=== PATIENT | male | born 1940 | race Caucasian/White ===

== ENCOUNTER 2021-06-23 09:38 | Emergency (ER) | payer MEDICARE, SELFPAY ==
[2021-06-23 09:46] VITALS: BP 215/85; PULSE 99; RESP 18; TEMP 36.1; O2SAT 96; BMI 25.8
--- NOTE | 2021-06-23 10:00 | ECG_ITS ---
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 Measurements Intervals [place] Rate: 95 P: 67 NE: 195 QRS: 65 QRSD: 118 T: 67 QT: 343 QTc: 433 Interpretive Statements SINUS RHYTHM INCOMPLETE RIGHT BUNDLE BRANCH BLOCK [90+ ms QRS DURATION, TERMINAL R IN V1/V2, 40+ ms S IN I/aVL/V4/V5/V6] ST DEVIATION AND MODERATE T-WAVE ABNORMALITY, CONSIDER ANTERIOR ISCHEMIA [-0.1+ mV T-WAVE IN V3/V4] Compared to ECG 07/05/2017 16:20:59 Incomplete right bundle-branch block now present T-wave abnormality now present Possible ischemia now present Right bundle-branch block no longer present Electronically Signed On 06-24-2021 16:13:51 MARKETING OPERATIONS SPECIALIST by Kary Gurrola M.D. [id number]
--- NOTE | 2021-06-23 10:00 | XR_ITS ---
WS: [id number] Exam: XR chest 1V portable [id number] Date/Time of Exam: 06/23/2021 10:27 AM Reason For Exam: dyspnea/cough Comparison 07/06/2017. Mild groundglass infiltrates seen in the mid right lung. Left lung is clear. Heart size is normal. No pleural effusions or pneumothorax. The mediastinum is not widened. Regional bony elements are intact . XR/XR chest 1V portable [id number] IMPRESSION: 1. Mild groundglass infiltrate in the mid right lung. This is suspicious for de veloping pneumonia.
[2021-06-23 10:01] VITALS: BP 107/78; PULSE 88; PULSE 92; RESP 24; O2SAT 92
--- NOTE | 2021-06-23 10:21 | W.ED.GENADLT ---
HPI - General Adult General: Chief complaint: General Medical Stated complaint: HTN: MEDS NOT HELPING Time Seen by Provider: 06/23/21 09:53 History of Present Illness: HPI narrative: 80-year-old male presents emergency room with elevated blood pressure. Reports elevated blood pressure over the last 4 days he is on carvedilol clonidine amlodipine and valsartan he did take his blood pressure medicines this morning initial arrival his blood pressure 215/85 he denies any difficulty speech swallowing gait or vision. He denies any chest pain or shortness of breath denies running out of changing any of his medications recently. Onset (ago): day(s) (4) Relieving factors: none Exacerbating factors: none Associated symptoms: Deny chest pain, confusion, cough, diaphoresis, decreased appetite, dyspnea, fevers/chills, headache(s), malaise, nausea, rash, palpitations, seizures, short of breath, syncope, vomiting or weakness Treatments prior to arrival: none Review of Systems Const: Denies: malaise or diaphoresis ENMT: Denies: throat pain, ear or mastoid pain, nasal discharge or nasal congestion Card: Denies: chest pain, palpitations or syncope Resp: Denies: dyspnea GI: Denies: nausea or vomiting : Denies: flank pain, dysuria, urinary frequency or urinary urgency Skin/Breast: Denies: rash Neuro: Denies: headache(s) or confusion Physical Exam Const: COMMON NORMALS: no acute distress GENERAL APPEARANCE: cooperative and comfortable ORIENTATION/CONSCIOUSNESS: Yes awake, Yes oriented to person, Yes oriented to place and Yes oriented to time HENMT: COMMON NORMALS: normocephalic, atraumatic and hearing grossly normal bilaterally HEAD & SCALP: normocephalic and atraumatic Neck/C-Spine: COMMON NORMALS: no JVD Resp: COMMON NORMALS: normal respiratory effort, No retractions, No use of accessory muscles and clear to auscultation bilaterally AUSCULTATION: clear to auscultation bilaterally Cardio: COMMON NORMALS: no JVD, regular rate, regular rhythm and No murmurs present (Cardio) RATE: regular rate RHYTHM: regular rhythm GI: COMMON NORMALS: Soft to palpation and No hepatosplenomegaly present AUSCULTATION: Yes normoactive bowel sounds PALPATION: Yes Soft to palpation, No Tenderness to palpation present (GI), No Guarding due to palpation present (GI) and Yes No hepatosplenomegaly present Extremity: COMMON NORMALS: normal to inspection, capillary refill normal, no clubbing, cyanosis or edema, no calf tenderness and no pedal edema Neuro: COMMON NORMALS: CN's II-XII intact bilaterally, moves all extremities, no focal motor deficits and no sensory deficits noted SENSORIUM/ORIENTATION: Yes oriented to person, Yes oriented to place and Yes oriented to time Skin: COMMON NORMALS: no rashes or lesions noted GENERAL SKIN EXAM: no rashes or lesions noted Course Vital Signs: Vital signs: Vital Signs Temperature 97 F L 06/23/21 09:46 Pulse Rate 92 06/23/21 10:01 Respiratory Rate 24 H 06/23/21 10:01 Blood Pressure 107/78 06/23/21 10:01 Pulse Oximetry 92 06/23/21 10:01 MDM - General Adult MDM Narrative: Medical decision making narrative: Blood pressure improved increase carvedilol to 25 mg p.o. twice daily follow-up with primary care doc within the next 2 days. Lab Data: Labs: Lab Results 06/23/21 06/23/21 06/23/21 10:35 10:35 10:35 WBC 7.6 10^3/uL 10^3/ uL (4.0-10.0) RBC 5.33 10^6/uL H 10 ^6/uL (4.1-5.3) Hgb 14.8 g/dL g/dL (11.7-16.6) Hct 45.2 % % (42.0-52.0) MCV 84.8 fl fl (80-94) MCH 27.8 pg L pg (28.0-34.0) MCHC 32.7 g/dL g/dL (30.0-36.0) RDW 14.6 % % (12.1-15.1) Plt Count 203 10^3/cmm 10^3 /cmm (130-400) MPV 10.0 fL fL (7.4-10.4) Neut % (Auto) 70.8 % % Lymph % (Auto) 19.4 % % Jewell % (Auto) 6.2 % % Eos % (Auto) 2.6 % % Baso % (Auto) 0.7 % % Neut # (Auto) 5.36 10^3/uL 10^3 /uL (1.8-7.7) Lymph # (Auto) 1.5 10^3/uL 10^3/ uL (0.8-4.8) Jewell # (Auto) 0.5 10^3/uL 10^3/ uL (0.2-0.9) Eos # (Auto) 0.2 10^3/uL 10^3/ uL (0.0-0.8) Baso # (Auto) 0.1 10^3/uL 10^3/ uL (0.0-0.1) Nucleated RBC % (a uto) 0 % % Nucleated RBCs # 0.0 /100WBC /100W BC Sodium 140 mmol/L mmol/L (136-145) Potassium 4.3 mmol/L mmol/L (3.5-5.1) Chloride 103 mmol/L mmol/L (98-107) Carbon Dioxide 22 mmol/L mmol/L (22-29) Anion Gap 19.3 H (5-19) BUN 18 mg/dL mg/dL (8-23) Creatinine 1.1 mg/dL mg/dL (0.7-1.2) GFR Calculation Not Reportable Glucose 126 mg/dL H mg/dL (65-115) Calculated Osmolal ity 293 mOsm/kg mOsm/ kg (285-295) Calcium 10.5 mg/dL mg/dL (8.5-10.5) Total Bilirubin 0.4 mg/dL mg/dL (0.15-1.2) AST 17 U/L U/L (0-40) ALT 14 U/L U/L (0-41) Alkaline Phosphata se 85 IU/L IU/L (40-130) Creatine Kinase 54 U/L U/L (39-308) Total Protein 8.0 g/dL g/dL (6.6-8.7) Albumin 4.6 g/dL g/dL (3.5-5.2) Globulin 3.4 g/dL g/dL (1.3-4.6) Urine Color Straw (Yellow) Urine Appearance Clear (CLEAR) Urine pH 7 (5-7) Ur Specific Gravit y 1.005 (1.005-1.030) Urine Protein Neg (Negative) Urine Glucose (UA) Norm (Normal) Urine Ketones Negative (Negative) Urine Blood Neg (Negative) Urine Nitrate Negative (Negative) Urine Bilirubin Neg (Negative) Urine Urobilinogen Norm mg/dL mg/dL (Negative) Ur Leukocyte Su ase Negative (Negative) Discharge Plan Discharge Patient Disposition: Home Clinical Impression: Hypertension Condition: Stable Prescriptions: Changed carvedilol 25 mg tablet 25 mg PO BID Qty: 0 RF: 0 No Action Vitamin B-12 1,000 mcg Tablet 1,000 mcg PO DAILY RF: 0 Aspir-81 81 mg Tablet,Delayed Release (Dr/Ec) 81 mg PO BEDTIME RF: 0 levothyroxine 75 mcg tablet 75 mcg PO QAM RF: 0 clonidine HCl 0.2 mg tablet 0.2 mg PO QID RF: 0 Tagamet 200 mg Tablet 200 mg PO PRN RF: 0 amlodipine 10 mg tablet 10 mg PO DAILY RF: 0 simvastatin 20 mg tablet 20 mg PO DAILY RF: 0 hydralazine 50 mg tablet 50 mg PO TID RF: 0 valsartan 160 mg tablet 160 mg PO DAILY RF: 0 Vitamin D3 50 mcg (2,000 unit) Capsule 50 mcg PO DAILY RF: 0 Discharge Orders: Discharge ED (Routine); Ordered 06/23/21 Ordered By: Freedom Quinn Referrals: Gustavo Ignacio MD [Primary Care Provider] - Patient Instructions: Opioid Safety Coding Level of Care Code ED Mysql Database Developer for Chg Fwd Exam Comprehensive
[2021-06-23] MEDS: amlodipine 10 mg Tablet PO (10:31)
[2021-06-23] MEDS: labetalol 5 mg/mL SDV 20mL 10 MG IVP (10:31)
[2021-06-23 10:58] LABS: Basophils # 0.1 10^3/uL (0.0-0.1); Basophils % 0.7 %; Eosinophils # 0.2 10^3/uL (0.0-0.8); Eosinophils % 2.6 %; Hematocrit 45.2 % (42.0-52.0); Hemoglobin 14.8 g/dL (11.7-16.6); Lymphocytes # 1.5 10^3/uL (0.8-4.8); Lymphocytes % 19.4 %; Mean Corpuscular HGB Conc 32.7 g/dL (30.0-36.0); Mean Corpuscular Hemoglobin 27.8 pg (28.0-34.0); Mean Corpuscular Volume 84.8 fl (80-94); Monocytes # 0.5 10^3/uL (0.2-0.9); Monocytes % 6.2 %; Neutrophils # 5.36 10^3/uL (1.8-7.7); Neutrophils % 70.8 %; Nucleated Red Blood Cells % 0 %; Platelet Count 203 10^3/cmm (130-400); Red Blood Count 5.33 10^6/uL (4.1-5.3); Red Cell Distribution Width 14.6 % (12.1-15.1); White Blood Count 7.6 10^3/uL (4.0-10.0)
[2021-06-23 11:08] LABS: Add Urine Microscopic? NO; Charge for UA Resulting for Rev
[2021-06-23 11:25] LABS: Alanine Aminotransferase 14 U/L (0-41); Albumin Level 4.6 g/dL (3.5-5.2); Alkaline Phosphatase 85 IU/L (40-130); Anion Gap 19.3 (5-19); Aspartate Amino Transferase 17 U/L (0-40); Blood Urea Nitrogen 18 mg/dL (8-23); Calcium 10.5 mg/dL (8.5-10.5); Carbon Dioxide 22 mmol/L (22-29); Chloride 103 mmol/L (98-107); Creatine Phosphokinase 54 U/L (39-308); Globulin 3.4 g/dL (1.3-4.6); Glucose 126 mg/dL (65-115); Osmolality Calculated 293 mOsm/kg (285-295); Potassium 4.3 mmol/L (3.5-5.1); Sodium 140 mmol/L (136-145); Total Bilirubin 0.4 mg/dL (0.15-1.2)
--- NOTE | 2021-06-23 11:27 | PC.NURSE ---
Per Dr. Quinn this RN will hold pts Enalaprilat 1.25mg IVP.
[2021-06-23 11:30] LABS: Bilirubin Urine Neg (Negative); Blood Urine Neg (Negative); Glucose Urine UA Norm (Normal); Ketones Urine Negative (Negative); Leukocyte Esterase Urine Negative (Negative); Nitrate Urine Negative (Negative); Protein Urine Neg (Negative); Specific Gravity, Urine 1.005 (1.005-1.030); Urine Appearance Clear (CLEAR); Urine Color Straw (Yellow); Urobilinogen Urine Norm (Negative); pH Urine 7 (5-7)
== END 2021-06-23 11:46 | disposition home or self-care (01) ==
PROVIDERS: Emergency Provider Family Medicine; PCP Internal Medicine
DX: I10 Essential (primary) hypertension (principal); Z79.82 Long term (current) use of aspirin
CPT/HCPCS: 71045; 80053; 81003; 82550; 85025; 93005; 96374; 99284; 99291; J3490

== ENCOUNTER 2021-12-27 07:08 | Emergency (ER) | payer MEDICARE, SELFPAY ==
[2021-12-27 07:28] VITALS: BP 111/51; PULSE 75; RESP 14; TEMP 36.7; O2SAT 95; BMI 26.3
--- NOTE | 2021-12-27 07:35 | XR_ITS ---
WS: [id number] Exam: XR knee RT 3V* [id number] Date/Time of Exam: 12/27/2021 7:35 AM Reason For Exam: swelling/pain No acute fracture or dislocation. Moderate joint effusion in the suprapatellar bursa. The joint perlita rtments are relatively well maintained. Chondrocalcinosis. Vascular calcifications in the posterior s oft tissues. XR/XR knee RT 3V* [id number] IMPRESSION: 1. Moderate size joint effusion. No acute fracture. 2. Chondrocalcinosis. Vascular calcifications.
--- NOTE | 2021-12-27 07:36 | ED_ITS ---
HPI - Extremity Problem General: Chief complaint: Extremity Injury, Lower Stated complaint: Rt Knee Pain Time Seen by Provider: 12/27/21 07:09 Source: patient and family Mode of arrival: wheelchair Limitations: no limitations History of Present Illness: Patient is a nice 81-year-old male who presents to ED today along with his and son for evaluation of right knee swelling. Patient tells me he began noticing swelling to the knee approximately 2 to 3 days ago. He states he was barbecuing and on his feet for a long period of time and thinks maybe he overdid it . Son states he has also been doing a large amount of gardening recently. Patient does have a history of rheumatoid arthritis. He has not had any known injury or trauma to the knee. He has not noticed any redness or warmth to the joint. MD Complaint: joint swelling and joint pain Onset (ago): day(s) Pain Consistency: constant Location: right and lower extremity Radiation: none Relieving factors: immobilization Exacerbating factors: weight bearing and walking Associated symptoms: Deny chest pain, fever(s) or rash Review of Systems Const: Denies: fever(s), chills, body aches, fatigue or malaise Card: Denies: chest pain Resp: Denies: dyspnea Musc: Reports: joint pain (R knee) and joint swelling (R knee); Denies: neck pain, back pain, extremity pain, extremity swelling, joint redness, joint warmth, limited range of motion, muscle cramps, muscle weakness or decrease in muscle mass Skin/Breast: Denies: rash Neuro: Denies: numbness in extremities, weakness in extremities, sensory changes or difficulty walking Physical Exam Const: COMMON NORMALS: no acute distress, average body habitus, patient oriented x3, no limitations, healthy appearing, alert and well nourished Extremity: COMMON NORMALS: capillary refill normal, no calf tenderness and no pedal edema GENERAL: Yes normal exam except as noted LEFT LOWER EXTREMITY: Yes knee joint (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; knee effusion present) Left knee: Yes ROM (full ROM except where limited by swelling/effusion), Yes neurovascular exam (normal) and Yes other (no redness/warmth to joint) OTHER: pt has no swelling proximal or distal to knee joint; calf is supple and non- tender; no color/temp changes noted to extremity; distal pulses/cap refill/sensation all normal Neuro: COMMON NORMALS: patient oriented x3, moves all extremities, no focal motor deficits and no sensory deficits noted SENSORIUM/ORIENTATION: Yes alert Skin: COMMON NORMALS: no rashes or lesions noted GENERAL SKIN EXAM: no rashes or lesions noted Course Vital Signs: Vital signs: Vital Signs Temperature 98.0 F 12/27/21 07:28 Pulse Rate 75 12/27/21 07:28 Respiratory Rate 14 12/27/21 07:28 Blood Pressure 111/51 12/27/21 07:28 Pulse Oximetry 95 12/27/21 07:28 MDM - Extremity (Nontraumatic) Medical Decision Making I don't have any concerns for septic arthritis, gout, DVT, cellulitis, or other concerning pathologies involving the knee at this time. Effusion most likely reactive secondary to his OA/RA. Discussed ice, elevation, compression, rest, NSAIDS, and will do small amount of Tramadol for discomfort. Patient and family seem happy with this plan. Follow up with PCP in 1-2 weeks for continued pain. Return to ED precautions given. Lab Data Radiology Impressions Knee X-Ray 12/27/21 07:35 IMPRESSION: 1. Moderate size joint effusion. No acute fracture. 2. Chondrocalcinosis. Vascular calcifications. Discharge Plan Discharge Patient Disposition: Home Clinical Impression: Effusion of right knee Condition: Stable Prescriptions: New tramadol 50 mg tablet 50 mg PO Q6H PRN (Reason: pain) Qty: 14 0RF No Action Vitamin B-12 1,000 mcg Tablet 1,000 mcg PO DAILY 0RF Aspir-81 81 mg Tablet,Delayed Release (Dr/Ec) 81 mg PO BEDTIME 0RF levothyroxine 75 mcg tablet 75 mcg PO QAM 0RF clonidine HCl 0.2 mg tablet 0.2 mg PO QID 0RF Tagamet 200 mg Tablet 200 mg PO PRN 0RF amlodipine 10 mg tablet 10 mg PO DAILY 0RF simvastatin 20 mg tablet 20 mg PO DAILY 0RF hydralazine 50 mg tablet 50 mg PO TID 0RF valsartan 160 mg tablet 160 mg PO DAILY 0RF Vitamin D3 50 mcg (2,000 unit) Capsule 50 mcg PO DAILY 0RF carvedilol 25 mg tablet 25 mg PO BID Qty: 0 0RF Discharge Orders: Discharge ED (Routine); Ordered 12/27/21 Ordered By: Kathy Leon Referrals: Gustavo Ignacio MD [Primary Care Provider] - Patient Instructions: Osteoarthritis (DC), Swollen Knee Joint (ED) Activity Restrictions/Additional Instructions: As we discussed you may take one tab Aleve in the morning and evening in ad dition to your Tramadol. You need to apply compression with the SORAYA wrap given today or a velcro knee sleeve as well as ice and elevate the extremity to help with swelling. Please follow up with your primary care provider in 1-2 weeks if knee pain/swelling is not improving. Coding Level of Care Code ED Cartography Professor for Chg Fwd Exam Expanded Problem Focused
[2021-12-27 08:33] VITALS: PULSE 67; RESP 16; O2SAT 95
== END 2021-12-27 08:34 | disposition home or self-care (01) ==
PROVIDERS: Emergency Provider Physician Assistant; PCP Internal Medicine
DX: M25.561 Pain in right knee (principal); M25.461 Effusion, right knee
CPT/HCPCS: 73562; 99283

== ENCOUNTER 2022-07-08 17:35 | Emergency (ER) | payer MEDICARE, SELFPAY ==
[2022-07-08 18:06] VITALS: BP 174/80; PULSE 105; RESP 20; TEMP 37.6; O2SAT 90
--- NOTE | 2022-07-08 18:25 | XRR_ITS ---
PROCEDURE INFORMATION: Exam: XR Chest Exam date and time: 07/08/2022 9:24 PM Age: 82 years old Clinical indication: Dyspnea; Additional info: SOB TECHNIQUE: Imaging protocol: Radiologic exam of the chest. Views: 1 view. COMPARISON: CR XR chest 1V portable [id number] 06/23/2021 10:35 AM FINDINGS: Lungs: Possible 1.0 cm spiculated nodule in the upper right lung. Coarse reticulonodular opacities in the left lung base, increased from the prior study. Mild atelectasis or scarring in the peripheral right lung base. Pleural spaces: Unremarkable. No pleural effusion. No pneumothorax. Heart/Mediastinum: Unremarkable. No cardiomegaly. Bones/joints: Unremarkable. XR/XR chest 1V portable [id number] IMPRESSION: 1. Possible 1.0 cm spiculated nodule in the upper right lung. Follow-up with CT imaging is recommended. 2. Coarse reticulonodular opacities in the left lung base could represent endobronchial infection, aspiration pneumonitis, or scarring.
[2022-07-08 20:17] LABS: Basophils % 0.4 %; Eosinophils % 0.3 %; Hematocrit 40.5 % (42.0-52.0); Hemoglobin 12.8 g/dL (11.7-16.6); Lymphocytes # 1.1 10^3/uL (0.8-4.8); Lymphocytes % 10.5 %; Mean Corpuscular HGB Conc 31.6 g/dL (30.0-36.0); Mean Corpuscular Hemoglobin 28.1 pg (28.0-34.0); Mean Platelet Volume 9.9 fL (7.4-10.4); Monocytes # 0.9 10^3/uL (0.2-0.9); Monocytes % 8.8 %; Neutrophils # 8.27 10^3/uL (1.8-7.7); Neutrophils % 79.4 %; Nucleated Red Blood Cells % 0 %; Platelet Count 178 10^3/cmm (130-400); Red Blood Count 4.55 10^6/uL (4.1-5.3); Red Cell Distribution Width 14.7 % (12.1-15.1); White Blood Count 10.4 10^3/uL (4.0-10.0)
[2022-07-08 20:32] LABS: Alanine Aminotransferase 32 U/L (0-41); Albumin Level 3.7 g/dL (3.5-5.2); Alkaline Phosphatase 123 U/L (40-130); Anion Gap 15.8 (5-19); Aspartate Amino Transferase 39 U/L (0-40); Blood Urea Nitrogen 13 mg/dL (8-23); Calcium 9.7 mg/dL (8.5-10.5); Carbon Dioxide 22 mmol/L (22-29); Chloride 98 mmol/L (98-107); Globulin 3.9 g/dL (1.3-4.6); Glucose 134 mg/dL (65-115); NT Pro B Type Natriuretic Pept 642 pg/mL (0-450); Osmolality Calculated 276 mOsm/kg (285-295); Potassium 3.8 mmol/L (3.5-5.1); Sodium 132 mmol/L (136-145); Total Bilirubin 0.4 mg/dL (0.15-1.2); Total Protein 7.6 g/dL (6.6-8.7)
--- NOTE | 2022-07-08 21:53 | W.ED.SOB ---
HPI - SOB/Dyspnea General: Chief Complaint: Shortness of Breath/Dyspnea Stated Complaint: cough,fever Time Seen by Provider: 07/08/22 21:52 History of Present Illness: HPI Narrative: Patient comes in today for complaints of illness for a little over 1 week. Patient reports fever and increased chest congestion over the last day. Patient appears nontoxic. Patient appears in no acute distress. 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 Associated symptoms: Reports fever(s) Review of Systems Const: Reports: fever(s) Resp: Reports: non-productive cough Physical Exam Const: COMMON NORMALS: alert HENMT: COMMON NORMALS: normocephalic HEAD & SCALP: normocephalic Neck/C-Spine: COMMON NORMALS: full ROM Resp: COMMON NORMALS: normal respiratory effort AUSCULTATION: crackles (Left base) Cardio: COMMON NORMALS: regular rate RATE: regular rate GI: COMMON NORMALS: Soft to palpation PALPATION: Yes Soft to palpation Extremity: COMMON NORMALS: normal to inspection Neuro: SENSORIUM/ORIENTATION: Yes alert Skin: COMMON NORMALS: turgor normal GENERAL SKIN EXAM: turgor normal Course Vital Signs: Vital signs: Vital Signs Temperature 99.7 F H 07/08/22 18:06 Pulse Rate 105 H 07/08/22 18:06 Respiratory Rate 20 H 07/08/22 18:06 Blood Pressure 174/80 07/08/22 18:06 Pulse Oximetry 90 07/08/22 18:06 MDM - SOB/Dyspnea Medical Decision Making 82-year-old male patient comes in today with cough and congestion for a little over 1 week with fever starting over the past 24 hours. Patient reports he started feeling better after being ill last weekend but started feeling ill again the last day or 2. On exam patient has some crackles in the left base. Vital signs are normal. Except for some elevation in blood pressure 174 systolic. Differential diagnosis includes but not limited to pneumonia, upper respiratory infection, bronchitis. Chest x-ray notes infiltrate to the left lower lung. Believe patient probably has pneumonia. We will start with ceftriaxone and azithromycin combination for the next 5 to 7 days. Patient was started on medication tonight. Patient was given 1 dose of dexamethasone tonight. Recommend follow-up with primary care in 3 days for recheck. Return to ED for worsening symptoms or new concerns. Patient and family both reported understanding. Lab Data 07/08/22 19:54 07/08/22 19:54 Labs/Radiology: Laboratory Results WBC 10.4 10^3/uL (4.0-10.0) H 07/08/22 19:54 RBC 4.55 10^6/uL (4.1-5.3) 07/08/22 19:54 Hgb 12.8 g/dL (11.7-16.6) 07/08/22 19:54 Hct 40.5 % (42.0-52.0) L 07/08/22 19:54 MCV 89.0 fl (80-94) 07/08/22 19:54 MCH 28.1 pg (28.0-34.0) 07/08/22 19:54 MCHC 31.6 g/dL (30.0-36.0) 07/08/22 19:54 RDW 14.7 % (12.1-15.1) 07/08/22 19:54 Plt Count 178 10^3/cmm (130-400) 07/08/22 19:54 MPV 9.9 fL (7.4-10.4) 07/08/22 19:54 Neut % (Auto) 79.4 % 07/08/22 19:54 Lymph % (Auto) 10.5 % 07/08/22 19:54 Reeves % (Auto) 8.8 % 07/08/22 19:54 Eos % (Auto) 0.3 % 07/08/22 19:54 Baso % (Auto) 0.4 % 07/08/22 19:54 Neut # (Auto) 8.27 10^3/uL (1.8-7.7) H 07/08/22 19:54 Lymph # (Auto) 1.1 10^3/uL (0.8-4.8) 07/08/22 19:54 Reeves # (Auto) 0.9 10^3/uL (0.2-0.9) 07/08/22 19:54 Eos # (Auto) 0.0 10^3/uL (0.0-0.8) 07/08/22 19:54 Baso # (Auto) 0.0 10^3/uL (0.0-0.1) 07/08/22 19:54 Nucleated RBC % (auto) 0 % 07/08/22 19:54 Nucleated RBCs # 0.0 /100WBC 07/08/22 19:54 Sodium 132 mmol/L (136-145) L 07/08/22 19:54 Potassium 3.8 mmol/L (3.5-5.1) 07/08/22 19:54 Chloride 98 mmol/L (98-107) 07/08/22 19:54 Carbon Dioxide 22 mmol/L (22-29) 07/08/22 19:54 Anion Gap 15.8 (5-19) 07/08/22 19:54 BUN 13 mg/dL (8-23) 07/08/22 19:54 Creatinine 0.9 mg/dL (0.7-1.2) 07/08/22 19:54 GFR Calculation Not Reportable 07/08/22 19:54 Glucose 134 mg/dL (65-115) H 07/08/22 19:54 Calculated Osmolality 276 mOsm/kg (285-295) L 07/08/22 19:54 Lactic Acid 1.0 mmol/L (0.5-2.2) 07/08/22 19:54 Calcium 9.7 mg/dL (8.5-10.5) 07/08/22 19:54 Total Bilirubin 0.4 mg/dL (0.15-1.2) 07/08/22 19:54 AST 39 U/L (0-40) 07/08/22 19:54 ALT 32 U/L (0-41) 07/08/22 19:54 Alkaline Phosphatase 123 U/L (40-130) 07/08/22 19:54 NT-Pro-B Natriuret Pep 642 pg/mL (0-450) H 07/08/22 19:54 Total Protein 7.6 g/dL (6.6-8.7) 07/08/22 19:54 Albumin 3.7 g/dL (3.5-5.2) 07/08/22 19:54 Globulin 3.9 g/dL (1.3-4.6) 07/08/22 19:54 Discharge Plan Discharge Patient Disposition: Home Clinical Impression: Community acquired pneumonia Qualifiers: Laterality: left Lung location: lower lobe of lung Qualified Code(s): J18.9 - Pneumonia, unspecified organism Condition: Stable Prescriptions: New azithromycin 250 mg tablet 250 mg PO DAILY 4 Days Qty: 4 0RF cefdinir 300 mg capsule 300 mg PO BID 7 Days Qty: 14 0RF No Action Vitamin B-12 1,000 mcg Tablet 1,000 mcg PO DAILY Aspir-81 81 mg Tablet,Delayed Release (Dr/Ec) 81 mg PO BEDTIME levothyroxine 75 mcg tablet 75 mcg PO QAM clonidine HCl 0.2 mg tablet 0.2 mg PO QID Tagamet 200 mg Tablet 200 mg PO PRN amlodipine 10 mg tablet 10 mg PO DAILY simvastatin 20 mg tablet 20 mg PO DAILY hydralazine 50 mg tablet 50 mg PO TID valsartan 160 mg tablet 160 mg PO DAILY Vitamin D3 50 mcg (2,000 unit) Capsule 50 mcg PO DAILY carvedilol 25 mg tablet 25 mg PO BID Qty: 0 0RF tramadol 50 mg tablet 50 mg PO Q6H PRN (Reason: pain) Qty: 14 0RF Discharge Orders: Discharge ED (Routine); Ordered 07/08/22 Ordered By: Walter Fan Referrals: Gustavo Ignacio MD [Primary Care Provider] - Discharge Diet: Usual diet Discharge Activity: Increase activity as tolerated Patient Instructions: Pneumonitis (ED) Activity Restrictions/Additional Instructions: Home and rest. Drink plenty of fluids of antibiotics. Use acetaminophen and ibuprofen for discomfort and fever. Follow-up with primary care in 3 days for recheck. Return to emergency department for increased shortness of breath, difficulty holding fluids down, or new concerns. Coding Level of Care Code ED Extractive Metallurgist for Nallely Choudhury
[2022-07-08] MEDS: dexamethasone 10 mg/mL INJ IM (22:17)
[2022-07-08] MEDS: azithromycin 250 mg Tablet 500 MG PO (22:18)
[2022-07-08] MEDS: cefTRIAXone 1,000 MG in lidocaine 1% 2.1 ML 0.1 MG IM (22:20)
[2022-07-08 22:30] VITALS: BP 159/88; PULSE 98; RESP 18; O2SAT 94
== END 2022-07-08 22:32 | disposition home or self-care (01) ==
PROVIDERS: Emergency Medicine; Emergency Provider Nurse Practitioner Family; PCP Internal Medicine
DX: J18.9 Pneumonia, unspecified organism (principal); Z79.82 Long term (current) use of aspirin
CPT/HCPCS: 36415; 71045; 80053; 83605; 83880; 85025; 96372; 99284; J0696; J1100; Q0144

== ENCOUNTER 2022-09-05 07:44 | Outpatient (CLI) | payer MEDICARE, SELFPAY ==
--- NOTE | 2022-09-05 08:13 | CT_ITS ---
WS: [id number] CT CHEST WITHOUT INTRAVENOUS CONTRAST HISTORY: PULMONARY NODULE, F/U FROM CXR TECHNIQUE: Contiguous 5 mm axial imaging performed on the thorax. Coronal and sagittal reformats are submitted. All CT scans at [facility] use at least one of these dose optimization techniques: automated exposure control; mA and/or kV adjustment per patient size (includes targeted exams where dose is matched to clinical indication); or iterative reconstruction. CONTRAST: None DLP: 355.51 mGy.cm COMPARISON: Chest radiograph 07/08/2022 Lungs and central airway: Hyperexpanded lungs with changes of paraseptal and centrilobular emphysema. Possible spiculated nodule in the RIGHT upper lobe seen on recent chest radiograph is not evident. T his may have been superimposed soft tissue. There is an area of mild pleural thickening in the insole and heel stiffener ior mid RIGHT lung. But there is no associated mass. Pleura: Normal. No pleural effusion. Heart and pericardium: Mild cardiomegaly. Moderate coronary artery calcification. Mediastinum and nasrin: No adenopathy. Vessels: Normal size aorta. Moderate calcified plaque throughout the aorta extending into the proxima l great vessels. Pulmonary artery size is normal. Chest wall and lower neck: No soft tissue masses. Upper abdomen: Small hiatal hernia. No liver abnormality on this unenhanced exam. Visualized gallblad baudilio is negative. 2.5 cm cyst upper pole RIGHT kidney. No adrenal mass. Osseous structures: No destructive process. CT/CT chest wo con [id number] IMPRESSION: 1. No spiculated mass or nodule RIGHT upper lobe corresponding to the finding on the radiograph. 2. Mild focal fatty pleural thickening in the mid RIGHT thorax. 3. Moderate atherosclerotic plaque aorta and proximal great vessels. 4. Chronic centrilobular and paraseptal emphysema.
== END 2022-09-05 07:45 | disposition home or self-care (01) ==
LOC: RAD 07:47
PROVIDERS: PCP Internal Medicine; Visit Provider Internal Medicine
DX: R91.1 Solitary pulmonary nodule (principal)
CPT/HCPCS: 71250

== ENCOUNTER 2023-06-09 08:02 | Emergency (ER) | payer MEDICARE, SELFPAY ==
[2023-06-09 08:11] VITALS: BP 180/76; PULSE 84; RESP 15; TEMP 36.4; O2SAT 94
--- NOTE | 2023-06-09 08:14 | XRR_ITS ---
PROCEDURE INFORMATION: Exam: XR Chest Exam date and time: 06/09/2023 8:34 AM Age: 82 years old Clinical indication: Cough; Additional info: Dyspnea/cough.No history of trauma or recent surgery is provided. TECHNIQUE: Imaging protocol: Radiologic exam of the chest. 1image(s) are provided. Views: 1 view. COMPARISON: 1. CT chest wo con [id number] 09/05/2022 8:58 AM 2. CR XR chest 1V portable [id number] 07/08/2022 9:24 PM FINDINGS: Lungs: There are some granulomatous calcification changes similar overall. There is chronic air trapping with emphysematous and scarring type appearance similar overall. No lobar consolidation is appreciated. Left basal aeration appears slightly improved. There is apical fibronodular scarring similar overall. Pleural spaces: There is some costophrenic angle blunting. No pneumothorax is appreciated. Heart/Mediastinum: The cardiomediastinal silhouette is upper normal in size.This can be seen with central averaging as well as farshad enlargement.No cardiac decompensation is appreciated. Diaphragm: There is slight asymmetric left hemidiaphragmatic elevation. Bones/joints: Osseous alignment is maintained.No interval displaced fracture or dislocation is appreciated. There are some chronic appearing degenerative changes of the shoulders similar. There is slightly decreased bone mineralization overall. Soft tissues: No radiopaque foreign body or diffuse subcutaneous emphysema is appreciated. There is some skin fold averaging. Other findings: There is overlying external artifact. No other significant interval changes are appreciated. XR/XR chest 1V portable [id number] IMPRESSION: There is chronic air trapping and scarring type appearance overall similar in distribution with some intervally improved basal aeration. No interval acute cardiopulmonary changes are appreciated.
--- NOTE | 2023-06-09 08:15 | W.ED.GENADLT ---
HPI - General Adult General: Chief complaint: Upper Respiratory Infection Stated complaint: cough, neck pain Time Seen by Provider: 06/09/23 08:12 Source: patient Mode of arrival: ambulatory History of Present Illness: 82-year-old female presents emergency room complaining of a cough its been going on for 2 days. She also has some mild neck pain Severity: mild Associated symptoms: Deny chest pain, dyspnea or rash Review of Systems Const: Denies: fever(s) or chills Card: Denies: chest pain Resp: Denies: dyspnea GI: Denies: abdominal pain : Denies: dysuria, urinary frequency or urinary urgency Musc: Denies: neck pain or back pain Skin/Breast: Denies: rash Physical Exam Const: GENERAL APPEARANCE: cooperative ORIENTATION/CONSCIOUSNESS: Yes awake, Yes oriented to person, Yes oriented to place and Yes oriented to time HENMT: COMMON NORMALS: normocephalic, atraumatic and hearing grossly normal bilaterally HEAD & SCALP: normocephalic and atraumatic Resp: COMMON NORMALS: normal respiratory effort, No retractions and No use of accessory muscles AUSCULTATION: rhonchi and wheezes Cardio: COMMON NORMALS: regular rate, regular rhythm and No murmurs present (Cardio) RATE: regular rate RHYTHM: regular rhythm GI: COMMON NORMALS: Soft to palpation and No hepatosplenomegaly present AUSCULTATION: Yes normoactive bowel sounds PALPATION: Yes Soft to palpation, No Tenderness to palpation present (GI), No Guarding due to palpation present (GI) and Yes No hepatosplenomegaly present Extremity: COMMON NORMALS: normal to inspection, capillary refill normal, no clubbing, cyanosis or edema, no calf tenderness and no pedal edema Neuro: SENSORIUM/ORIENTATION: Yes oriented to person, Yes oriented to place and Yes oriented to time Skin: COMMON NORMALS: no rashes or lesions noted GENERAL SKIN EXAM: no rashes or lesions noted Course Vital Signs: Vital signs: Vital Signs Temperature 97.6 F 06/09/23 08:11 Pulse Rate 84 06/09/23 08:11 Respiratory Rate 15 06/09/23 08:11 Blood Pressure 180/76 06/09/23 08:11 Pulse Oximetry 94 06/09/23 08:11 Oxygen Delivery Me thod Room Air 06/09/23 08:11 MDM - General Adult Medical Decision Making Given patient's productive cough over period of time recommend that we start him on oral antibiotics does have some coarse breath sounds recheck if not improving Lab Data Radiology Impressions Chest X-Ray 06/09/23 08:14 IMPRESSION: There is chronic air trapping and scarring type appearance overall similar in distribution with some intervally improved basal aeration. No interval acute cardiopulmonary changes are appreciated. All radiology interpretation(s) finalized by discharge Discharge Plan Discharge Patient Disposition: Home Clinical Impression: Pneumonia, Chronic neck pain Condition: Stable Prescriptions: New doxycycline hyclate 100 mg capsule 100 mg PO BID 10 Days Qty: 20 0RF No Action Vitamin B-12 1,000 mcg Tablet 1,000 mcg PO DAILY Aspir-81 81 mg Tablet,Delayed Release (Dr/Ec) 81 mg PO BEDTIME levothyroxine 75 mcg tablet 75 mcg PO QAM clonidine HCl 0.2 mg tablet 0.2 mg PO QID Tagamet 200 mg Tablet 200 mg PO PRN amlodipine 10 mg tablet 10 mg PO DAILY simvastatin 20 mg tablet 20 mg PO DAILY hydralazine 50 mg tablet 50 mg PO TID valsartan 160 mg tablet 160 mg PO DAILY Vitamin D3 50 mcg (2,000 unit) Capsule 50 mcg PO DAILY carvedilol 25 mg tablet 25 mg PO BID Qty: 0 0RF tramadol 50 mg tablet 50 mg PO Q6H PRN (Reason: pain) Qty: 14 0RF Discharge Orders: Discharge ED (Routine); Ordered 06/09/23 Ordered By: Freedom Quinn Referrals: Gustavo Ignacio MD [Primary Care Provider] - Discharge Diet: Usual diet Discharge Activity: Increase activity as tolerated Patient Instructions: Opioid Safety, Pain Management Activity Restrictions/Additional Instructions: Thank you for choosing [facility] for your healthcare needs today. Please realize this is an emergency room and that we are providing you with a medical screening exam and this may not be complete and all inclusive of all the testing and or work up that you may need to determine your ailment or severity of your illness. It is very important that you follow up as instructed or that you return to the Emergency Department should you have concerns or if your condition changes or worsens in any way. Chest x-ray did show some subtle early changes suggestive of pneumonia. Recommend you start oral antibiotics 1 pill twice a day for 10 days. For the chronic neck pain recommend you follow-up with your primary care doctor for further evaluation. Coding Level of Care Code ED Hydroelectric Systems Technician for Nallely Choudhury
== END 2023-06-09 09:10 | disposition home or self-care (01) ==
PROVIDERS: Emergency Provider Family Medicine; PCP Internal Medicine
DX: J18.9 Pneumonia, unspecified organism (principal); G89.29 Other chronic pain; M54.2 Cervicalgia; Z79.82 Long term (current) use of aspirin
CPT/HCPCS: 71045; 99283

== ENCOUNTER → 2023-09-04 09:34 | Outpatient (BNVA) | payer MEDICARE, SELFPAY | PROVIDERS: PCP Internal Medicine; Visit Provider Anesthesiology Pain Medicine | DX: M47.812 Spondylosis without myelopathy or radiculopathy, cervical region; G24.3 Spasmodic torticollis | CPT/HCPCS: 99204 ==

== ENCOUNTER → 2023-09-13 13:49 | Outpatient (BNVA) | payer MEDICARE, SELFPAY | PROVIDERS: PCP Internal Medicine; Visit Provider Anesthesiology Pain Medicine | DX: M47.812 Spondylosis without myelopathy or radiculopathy, cervical region (principal) | CPT/HCPCS: 64490; 64491; 64492 ==

== ENCOUNTER → 2023-09-27 08:25 | Outpatient (BNVA) | payer MEDICARE, SELFPAY | PROVIDERS: PCP Internal Medicine; Visit Provider Anesthesiology Pain Medicine | DX: M47.812 Spondylosis without myelopathy or radiculopathy, cervical region; G24.3 Spasmodic torticollis | CPT/HCPCS: 99214 ==

== ENCOUNTER → 2023-10-04 14:12 | Outpatient (BNVA) | payer MEDICARE, SELFPAY | PROVIDERS: PCP Internal Medicine; Visit Provider Anesthesiology Pain Medicine | DX: M47.812 Spondylosis without myelopathy or radiculopathy, cervical region (principal) | CPT/HCPCS: 64490; 64491; 64492; J3490 ==

== ENCOUNTER → 2023-10-24 10:09 | Outpatient (BNVA) | payer MEDICARE, SELFPAY | PROVIDERS: PCP Internal Medicine; Visit Provider Psychiatry & Neurology Neurology | DX: G24.3 Spasmodic torticollis (principal); M48.00 Spinal stenosis, site unspecified; M50.20 Other cervical disc displacement, unspecified cervical region; M47.812 Spondylosis without myelopathy or radiculopathy, cervical region | CPT/HCPCS: 99203 ==

== ENCOUNTER → 2023-11-01 08:56 | Outpatient (BNVA) | payer MEDICARE, SELFPAY | PROVIDERS: PCP Internal Medicine; Visit Provider Anesthesiology Pain Medicine | DX: M54.9 Dorsalgia, unspecified; M47.812 Spondylosis without myelopathy or radiculopathy, cervical region; G24.3 Spasmodic torticollis | CPT/HCPCS: 99214 ==

== ENCOUNTER → 2023-11-13 13:20 | Outpatient (BNVA) | payer MEDICARE, SELFPAY | PROVIDERS: PCP Internal Medicine; Visit Provider Anesthesiology Pain Medicine | DX: M47.812 Spondylosis without myelopathy or radiculopathy, cervical region (principal) | CPT/HCPCS: 64633; 64634; J1010 ==

== ENCOUNTER 2023-11-16 19:26 | Emergency (ER) | payer MEDICARE, SELFPAY ==
[2023-11-16 19:30] VITALS: BP 219/80; PULSE 85; RESP 18; TEMP 36.5; O2SAT 94
--- NOTE | 2023-11-16 20:05 | XRR_ITS ---
PROCEDURE INFORMATION: Exam: XR Chest Exam date and time: 11/16/2023 8:24 PM Age: 83 years old Clinical indication: Patient HX: C/O worsening hypertension over last three days TECHNIQUE: Imaging protocol: Radiologic exam of the chest. Views: 1 view. COMPARISON: CR XR chest 1V portable [id number] 06/09/2023 8:34 AM FINDINGS: Lungs: Mild basilar peribronchial thickening and left retrocardiac scarring/streak atelectasis. Mild strand-like scarring in the bilateral midlung zones. Previous right apical scar/atelectasis has improved from 06/09/2023. Pleural spaces: Unremarkable. No pleural effusion. No pneumothorax. Heart/Mediastinum: Unremarkable. No cardiomegaly. Bones/joints: Unremarkable. XR/XR chest 1V [id number] IMPRESSION: 1. Mild chronic strand-like scarring in the bases and mid lung zones. 2. No acute plain radiographic cardiopulmonary abnormality or significant progressive change from 06/09/2023.
--- NOTE | 2023-11-16 20:06 | ECG_ITS ---
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 Measurements Intervals [place] Rate: 87 P: 24 WI: 155 QRS: 58 QRSD: 117 T: 56 QT: 350 QTc: 422 Interpretive Statements SINUS RHYTHM POSSIBLE RIGHT VENTRICULAR CONDUCTION DELAY [RSR (QR) IN V1/V2] ST DEVIATION AND MODERATE T-WAVE ABNORMALITY, CONSIDER ANTEROLATERAL ISCHEMIA [-0.1+ mV T-WAVE IN V3-V6] Compared to ECG 06/23/2021 10:13:34 Incomplete right bundle-branch block no longer present T-wave abnormality still present Possible ischemia still present Electronically Signed On 11-16-2023 23:11:03 CDT by Jassi Johnson M.D. [id number] f
--- NOTE | 2023-11-16 20:15 | ED_ITS ---
HPI - General Adult 2 General: Chief complaint: General Medical Stated complaint: High BP Time Seen by Provider: 11/16/23 20:09 History of Present Illness: 83-year-old man with a history of hypert ension who presents to the emergency room with hypertension. He says he has been checking his blood pressure all day today and it has been above 200 quite frequently. He said no symptoms. No chest pain. No shortness of breath. No altered mental status. No focal motor deficits. No nausea or vomiting. No abdominal pain. Review of Systems 2 Narrative: Constitutional symptoms: Negative except as documented in HPI. Skin symptoms: Negative except as documented in HPI. Eye symptoms: Negative except as documented in HPI. ENMT symptoms: Negative except as documented in HPI. Respiratory symptoms: Negative except as documented in HPI. Cardiovascular symptoms: Negative except as documented in HPI. Gastrointestinal symptoms: Negative except as documented in HPI. Genitourinary symptoms: Negative except as documented in HPI. Musculoskeletal symptoms: Negative except as documented in HPI. Neurologic symptoms: Negative except as documented in HPI. Psychiatric symptoms: Negative except as documented in HPI. Endocrine symptoms: Negative except as documented in HPI. Physical Exam 2 Narrative: EXAM NARRATIVE: General: Alert, no acute distress. Skin: Warm, dry. Head: Normocephalic, atraumatic. Neck: Supple, trachea midline. Eye: Extraocular movements are intact. Ears, nose, mouth and throat: mucosa moist. Cardiovascular: Regular, Normal peripheral perfusion. Respiratory: Lungs are clear to auscultation, respirations are non-labored, breath sounds are equal, Symmetrical chest wall expansion. Gastrointestinal: Soft, Nontender, Non distended, Normal bowel sounds. Musculoskeletal: Normal ROM, no deformity. Neurological: Alert and oriented, No focal neurological deficit observed. Psychiatric: Cooperative, appropriate mood & affect. Course 2 Vital Signs: Vital signs: Vital Signs Temperature 97.7 F 11/16/23 19:30 Pulse Rate 83 11/16/23 22:11 Respiratory Rate 16 11/16/23 22:11 Blood Pressure 172/81 11/16/23 22:11 Pulse Oximetry 95 11/16/23 22:11 Oxygen Delivery Me thod Room Air 11/16/23 19:30 MDM - General Adult Medical Decision Making Medical decision making: Differential diagnosis including but not limited to and based on the above HPI, review of systems and physical exam: Patient presents with hypertension: Essential hypertension. Stroke. acute coronary syndrome. kidney failure. congestive heart failure. anxiety Orders placed to evaluate differential diagnosis based on the above differential, HPI and physical exam these include an EKG to evaluate for any ischemic changes, chest x-ray to evaluate for cardiomegaly, and basic lab work including a troponin and a BMP look at renal function. Lab Review: Laboratory results were reviewed and interpreted by myself the emergency room physician. Kidney function is normal. No leukocytosis. Troponin is not elevated. EKG: Time 1930 rate 87 normal sinus rhythm, nonspecific ST-T changes, no ectopy, normal IL & QRS intervals, This was reviewed and interpreted by myself the ER physician at 1940.. Chest x-ray: Some chronic scarring. No acute process. No infiltrate. No pneumothorax. No cardiomegaly. This was reviewed and interpreted by myself the ER physician. Reexamination: Patient remained stable. No increased work of breathing. No altered mental status. Lab Data 11/16/23 20:40 11/16/23 20:40 Radiology Impressions Chest X-Ray 11/16/23 20:05 IMPRESSION: 1. Mild chronic strand-like scarring in the bases and mid lung zones. 2. No acute plain radiographic cardiopulmonary abnormality or significant progressive change from 06/09/2023. Laboratory Results WBC 9.29 10^3/uL (3.29-11.43) 11/16/23 20:40 RBC 5.11 10^6/uL (3.85-5.65) 11/16/23 20:40 Hgb 13.90 g/dL (11.27-16.99) 11/16/23 20:40 Hct 45.3 % (37-53) 11/16/23 20:40 MCV 88.6 fl (82-101) 11/16/23 20:40 MCH 27.2 pg (27-33) 11/16/23 20:40 MCHC 30.7 g/dL (30-55) 11/16/23 20:40 RDW 15.0 % (12.1-15.1) 11/16/23 20:40 Plt Count 239 10^3/cmm (157-399) 11/16/23 20:40 MPV 9.4 fL (7.4-10.4) 11/16/23 20:40 Neut % (Auto) 62.9 % 11/16/23 20:40 Lymph % (Auto) 23.7 % 11/16/23 20:40 [place] % (Auto) 10.0 % 11/16/23 20:40 Eos % (Auto) 2.6 % 11/16/23 20:40 Baso % (Auto) 0.4 % 11/16/23 20:40 Neut # (Auto) 5.84 10^3/uL (1.8-7.7) 11/16/23 20:40 Lymph # (Auto) 2.2 10^3/uL (0.8-4.8) 11/16/23 20:40 [place] # (Auto) 0.9 10^3/uL (0.2-0.9) 11/16/23 20:40 Eos # (Auto) 0.2 10^3/uL (0.0-0.8) 11/16/23 20:40 Baso # (Auto) 0.0 10^3/uL (0.0-0.1) 11/16/23 20:40 Nucleated RBC % (auto) 0 % 11/16/23 20:40 Nucleated RBCs # 0.0 /100WBC 11/16/23 20:40 Sodium 140 mmol/L (136-145) 11/16/23 20:40 Potassium 4.7 mmol/L (3.5-5.1) 11/16/23 20:40 Chloride 103 mmol/L (98-107) 11/16/23 20:40 Carbon Dioxide 24 mmol/L (22-29) 11/16/23 20:40 Anion Gap 18.7 (5-19) 11/16/23 20:40 BUN 16 mg/dL (8-23) 11/16/23 20:40 Creatinine 1.0 mg/dL (0.7-1.2) 11/16/23 20:40 GFR Calculation Not Reportable 11/16/23 20:40 Glucose 119 mg/dL (65-115) H 11/16/23 20:40 Calculated Osmolality 292 mOsm/kg (285-295) 11/16/23 20:40 Calcium 10.2 mg/dL (8.5-10.5) 11/16/23 20:40 Troponin T Baseline 17 ng/L (0-15) H 11/16/23 20:40 All radiology interpretation(s) finalized by discharge Other Data Assessment and plan: Accelerated hypertension -IV hydralazine in the emergency room. Then labetalol. - Discharged home - Discussed findings and plan with patient. Answered any questions. - All laboratory values were reviewed and interpreted personally by myself, the ER physician - All imaging was reviewed and interpreted personally by myself, the ER physician. - Evaluation and treatment of this problem were appropriate in the emergency setting Discharge Plan Discharge Patient Disposition: Home Condition: Stable Prescriptions: No Action tizanidine 4 mg PO 3XD Vitamin B-12 1,000 mcg Tablet 1,000 mcg PO DAILY Aspir-81 81 mg Tablet,Delayed Release (Dr/Ec) 81 mg PO BEDTIME levothyroxine 75 mcg tablet 75 mcg PO QAM clonidine HCl 0.2 mg tablet 0.2 mg PO QID amlodipine 10 mg tablet 10 mg PO DAILY simvastatin 20 mg tablet 20 mg PO DAILY hydralazine 50 mg tablet 50 mg PO TID valsartan 160 mg tablet 160 mg PO DAILY Vitamin D3 50 mcg (2,000 unit) Capsule 50 mcg PO DAILY carvedilol 25 mg tablet 25 mg PO BID Qty: 0 0RF tramadol 50 mg tablet 50 mg PO Q6H PRN (Reason: pain) Qty: 14 0RF Discharge Orders: Discharge ED (Routine); Ordered 11/16/23 Ordered By: Vesna Oconnor Referrals: Gustavo Ignacio MD [Primary Care Provider] - (You have been screened and evaluated and felt safe for discharge. Health conditions do change or evolve sometimes and as such it is important that you follow up with your Primary Doctor to be re checked, 3-5 days is a general good time frame for follow up. You are always welcome to return to the ED for re assessment if your symptoms are worsening or you have new concerns) Discharge Diet: Usual diet Discharge Activity: Resume usual activity Patient Instructions: Hypertension (ED), Opioid Safety, Pain Management Coding Level of Care Code ED Budget Record Clerk for Nallely Choudhury
[2023-11-16] MEDS: hyDRALAzine 20 mg/mL INJ 1 mL 10 MG IVP (20:46)
[2023-11-16 20:50] VITALS: BP 202/95; PULSE 88; RESP 18; O2SAT 94
[2023-11-16 20:52] LABS: Basophils % 0.4 %; Eosinophils # 0.2 10^3/uL (0.0-0.8); Eosinophils % 2.6 %; Hematocrit 45.3 % (37-53); Lymphocytes # 2.2 10^3/uL (0.8-4.8); Lymphocytes % 23.7 %; Mean Corpuscular HGB Conc 30.7 g/dL (30-55); Mean Corpuscular Hemoglobin 27.2 pg (27-33); Mean Corpuscular Volume 88.6 fl (82-101); Mean Platelet Volume 9.4 fL (7.4-10.4); Monocytes # 0.9 10^3/uL (0.2-0.9); Neutrophils # 5.84 10^3/uL (1.8-7.7); Neutrophils % 62.9 %; Nucleated Red Blood Cells % 0 %; Platelet Count 239 10^3/cmm (157-399); Red Blood Count 5.11 10^6/uL (3.85-5.65); White Blood Count 9.29 10^3/uL (3.29-11.43)
[2023-11-16 21:17] LABS: Blood Urea Nitrogen 16 mg/dL (8-23); Calcium 10.2 mg/dL (8.5-10.5); Chloride 103 mmol/L (98-107); Creatinine Clr Calc Pharmacy 50.0314; Glucose 119 mg/dL (65-115); Osmolality Calculated 292 mOsm/kg (285-295); Sodium 140 mmol/L (136-145); Troponin(5th) Baseline 17 ng/L (0-15)
[2023-11-16 21:30] VITALS: BP 213/98; PULSE 91; RESP 16; O2SAT 93
[2023-11-16 21:37] LABS: Anion Gap 18.7 (5-19); Carbon Dioxide 24 mmol/L (22-29); Potassium 4.7 mmol/L (3.5-5.1)
[2023-11-16] MEDS: acetaminophen 500 mg Tablet 1000 MG PO (21:54)
[2023-11-16] MEDS: labetalol 5 mg/mL SDV 20mL 20 MG IVP (21:55)
--- NOTE | 2023-11-16 22:06 | ECG_ITS ---
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 Measurements Intervals [place] Rate: 80 P: 42 PA: 161 QRS: -7 QRSD: 120 T: -3 QT: 363 QTc: 420 Interpretive Statements SINUS RHYTHM POSSIBLE RIGHT VENTRICULAR CONDUCTION DELAY [RSR (QR) IN V1/V2] ST DEVIATION AND MODERATE T-WAVE ABNORMALITY, CONSIDER ANTERIOR ISCHEMIA [-0.1+ mV T-WAVE IN V3/V4] Compared to ECG 11/16/2023 19:32:03 No significant changes Electronically Signed On 11-16-2023 23:13:46 CDT by Jassi Johnson M.D. [id number]
[2023-11-16 22:11] VITALS: BP 172/81; PULSE 83; RESP 16; O2SAT 95
[2023-11-16 22:36] VITALS: BP 179/89; PULSE 84; RESP 16; O2SAT 95
[2023-11-16 22:59] LABS: Troponin 5 2HR 15.69 ng/L (0-15)
[2023-11-16 23:02] LABS: Troponin 5 2HR Delta -1.31 ABS# (0-10)
== END 2023-11-16 22:37 | disposition home or self-care (01) ==
PROVIDERS: Emergency Provider Emergency Medicine; PCP Internal Medicine
DX: I10 Essential (primary) hypertension (principal); Z79.82 Long term (current) use of aspirin
CPT/HCPCS: 36415; 71045; 80048; 84484; 85025; 93005; 96374; 96375; 99285; J0360; J3490

== ENCOUNTER → 2023-11-28 09:17 | Outpatient (BNVA) | payer MEDICARE, SELFPAY | PROVIDERS: PCP Internal Medicine; Visit Provider Anesthesiology Pain Medicine | DX: M47.812 Spondylosis without myelopathy or radiculopathy, cervical region; G24.3 Spasmodic torticollis | CPT/HCPCS: 99214 ==

== ENCOUNTER → 2023-12-26 13:30 | Outpatient (BNVA) | payer MEDICARE, SELFPAY | PROVIDERS: PCP Internal Medicine; Visit Provider Anesthesiology Pain Medicine | DX: M54.81 Occipital neuralgia (principal); G24.3 Spasmodic torticollis; M47.812 Spondylosis without myelopathy or radiculopathy, cervical region | CPT/HCPCS: 64405; J1010; J3490 ==

== ENCOUNTER → 2024-01-21 10:25 | Outpatient (BNVA) | payer MEDICARE, SELFPAY | PROVIDERS: PCP Internal Medicine; Visit Provider Anesthesiology Pain Medicine | DX: M79.18 Myalgia, other site (principal); M47.812 Spondylosis without myelopathy or radiculopathy, cervical region; G24.3 Spasmodic torticollis | CPT/HCPCS: 20553; 99214; J1010; J3490 ==

== ENCOUNTER 2024-05-27 03:25 | Emergency (ER) | payer MEDICARE, SELFPAY ==
[2024-05-27] VITALS (8 sets, daily range): BP systolic 130–203; BP diastolic 69–92; PULSE 81–89; RESP 13–25; TEMP 36.3; O2SAT 95–100; BMI 24.2
--- NOTE | 2024-05-27 03:31 | ECG_ITS ---
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: : 1940 Requested By: Charles Sanchez Order Number: [id number] Reading MD: JOSE E LENNON Measurements Intervals [place] Rate: 85 P: 34 MD: 170 QRS: 14 QRSD: 125 T: -8 QT: 367 QTc: 437 Interpretive Statements SINUS RHYTHM POSSIBLE RIGHT VENTRICULAR CONDUCTION DELAY [RSR (QR) IN V1/V2] ST DEVIATION AND MODERATE T-WAVE ABNORMALITY, CONSIDER ANTERIOR ISCHEMIA [-0.1+ mV T-WAVE IN V3/V4] Compared to ECG 11/16/2023 22:10:38 No significant changes Electronically Signed On 05-27-2024 20:59:35 CDT by JOSE E LENNON [id number]
--- NOTE | 2024-05-27 03:36 | XRR_ITS ---
PROCEDURE INFORMATION: Exam: XR Chest Exam date and time: 05/27/2024 4:06 AM Age: 83 years old Clinical indication: Other: Arrhythmia/palpitations TECHNIQUE: Imaging protocol: Radiologic exam of the chest. Views: 1 view. COMPARISON: CR (CHEST, ) 11/16/2023 8:24 PM FINDINGS: Lungs: Linear scarring noted involving the right mid lung and left lung base unchanged. No consolidation is appreciated. Pleural spaces: Unremarkable. No pleural effusion. No pneumothorax. Heart/Mediastinum: Heart size is normal. There is calcified plaque involving the aorta. Bones/joints: Unremarkable. XR/XR chest 1V portable [id number] IMPRESSION: 1. No acute cardiopulmonary findings.
[2024-05-27 04:17] LABS: Basophils # 0.1 10^3/uL (0.0-0.1); Basophils % 0.9 %; Eosinophils # 0.3 10^3/uL (0.0-0.8); Eosinophils % 3.5 %; Hematocrit 41.7 % (37-53); Lymphocytes # 2.8 10^3/uL (0.8-4.8); Mean Corpuscular HGB Conc 30.2 g/dL (30-55); Mean Corpuscular Hemoglobin 27.3 pg (27-33); Mean Corpuscular Volume 90.3 fl (82-101); Mean Platelet Volume 9.6 fL (7.4-10.4); Monocytes # 0.7 10^3/uL (0.2-0.9); Monocytes % 8.9 %; Neutrophils % 48.4 %; Nucleated Red Blood Cells % 0 %; Platelet Count 163 10^3/cmm (157-399); Red Blood Count 4.62 10^6/uL (3.85-5.65); Red Cell Distribution Width 14.8 % (12.1-15.1); White Blood Count 7.43 10^3/uL (3.29-11.43)
--- NOTE | 2024-05-27 04:25 | W.ED.ARRPALP ---
Documented by User: Charles Sanchez DO 05/27/24 18:43 HPI - Arrhythmia/Palpitations General: Chief Complaint: Arrhythmia/Palpitations Stated Complaint: irregular heartbeat Time Seen by Provider: 05/27/24 03:36 History of Present Illness: Patient is into the ER with complaints of irregular heartbeat. He said he had an episode like this about 10 years ago but has been on medicine ever since and has not had it anymore. He says it feels like it misses a beat or 2 every once in a while. Patient denies any overt chest pain diaphoresis shortness of breath. Related Data Home Medications Medication Instructions Recorded Confirmed amlodipine 10 mg tablet 10 mg PO DAILY 06/23/21 05/27/24 aspirin 81 mg tablet,delayed 81 mg PO BEDTIME 06/23/21 05/27/24 release cholecalciferol (vitamin D3) 50 50 mcg PO DAILY 06/23/21 05/27/24 mcg (2,000 unit) capsule (Vitamin D3) clonidine HCl 0.2 mg tablet 0.2 mg PO QID 06/23/21 05/27/24 cyanocobalamin (vitamin B-12) 1,000 mcg PO DAILY 06/23/21 05/27/24 1,000 mcg tablet (Vitamin B-12) hydralazine 50 mg tablet 50 mg PO TID 06/23/21 05/27/24 levothyroxine 75 mcg tablet 75 mcg PO QAM 06/23/21 05/27/24 simvastatin 20 mg tablet 20 mg PO DAILY 06/23/21 05/27/24 valsartan 160 mg tablet 160 mg PO DAILY see pharmacy 06/23/21 05/27/24 comments Previous Rx's Medication Instructions Recorded carvedilol 25 mg tablet 25 mg PO BID #0 tabs 06/23/21 tramadol 50 mg tablet 50 mg PO Q6H PRN pain #14 tabs 12/27/21 baclofen 10 mg tablet 10 mg PO BID PRN spasm #60 tabs 01/21/24 Allergies Allergy/AdvReac Type Severity Reaction Status Date / Time No Known Allergies Allergy Verified 01/21/24 10:37 [facility] ED PFS: Medical History (Updated 05/27/24 @ 08:16 by Freedom Quinn DO) 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 Quinn at shift change Lab Data 05/27/24 04:05 05/27/24 04:05 Radiology Impressions Chest X-Ray 05/27/24 03:36 IMPRESSION: 1. No acute cardiopulmonary findings. Laboratory Results WBC 7.43 10^3/uL (3.29-11.43) 05/27/24 04:05 RBC 4.62 10^6/uL (3.85-5.65) 05/27/24 04:05 Hgb 12.60 g/dL (11.27-16.99) 05/27/24 04:05 Hct 41.7 % (37-53) 05/27/24 04:05 MCV 90.3 fl (82-101) 05/27/24 04:05 MCH 27.3 pg (27-33) 05/27/24 04:05 MCHC 30.2 g/dL (30-55) 05/27/24 04:05 RDW 14.8 % (12.1-15.1) 05/27/24 04:05 Plt Count 163 10^3/cmm (157-399) 05/27/24 04:05 MPV 9.6 fL (7.4-10.4) 05/27/24 04:05 Neut % (Auto) 48.4 % 05/27/24 04:05 Lymph % (Auto) 38.0 % 05/27/24 04:05 Archuleta % (Auto) 8.9 % 05/27/24 04:05 Eos % (Auto) 3.5 % 05/27/24 04:05 Baso % (Auto) 0.9 % 05/27/24 04:05 Neut # (Auto) 3.60 10^3/uL (1.8-7.7) 05/27/24 04:05 Lymph # (Auto) 2.8 10^3/uL (0.8-4.8) 05/27/24 04:05 Archuleta # (Auto) 0.7 10^3/uL (0.2-0.9) 05/27/24 04:05 Eos # (Auto) 0.3 10^3/uL (0.0-0.8) 05/27/24 04:05 Baso # (Auto) 0.1 10^3/uL (0.0-0.1) 05/27/24 04:05 Nucleated RBC % (auto) 0 % 05/27/24 04:05 Nucleated RBCs # 0.0 /100WBC 05/27/24 04:05 Sodium 145 mmol/L (136-145) 05/27/24 04:05 Potassium 3.7 mmol/L (3.5-5.1) 05/27/24 04:05 Chloride 108 mmol/L (98-107) H 05/27/24 04:05 Carbon Dioxide 24 mmol/L (22-29) 05/27/24 04:05 Anion Gap 16.7 (5-19) 05/27/24 04:05 BUN 13 mg/dL (8-23) 05/27/24 04:05 Creatinine 0.9 mg/dL (0.7-1.2) 05/27/24 04:05 GFR Calculation Not Reportable 05/27/24 04:05 Glucose 112 mg/dL (65-115) 05/27/24 04:05 Calculated Osmolality 301 mOsm/kg (285-295) H 05/27/24 04:05 Calcium 9.3 mg/dL (8.5-10.5) 05/27/24 04:05 Magnesium 1.6 mg/dL (1.7-2.3) L 05/27/24 04:05 Total Bilirubin 0.3 mg/dL (0.15-1.2) 05/27/24 04:05 AST 26 U/L (0-40) 05/27/24 04:05 ALT 22 U/L (0-41) 05/27/24 04:05 Alkaline Phosphatase 98 U/L (40-130) 05/27/24 04:05 Troponin T Baseline 21 ng/L (0-15) H 05/27/24 04:05 Troponin T 120 Minute 19.42 ng/L (0-15) H 05/27/24 05:57 Delta Troponin T -1.58 ABS# (0-10) L 05/27/24 05:57 Total Protein 6.1 g/dL (6.6-8.7) L 05/27/24 04:05 Albumin 4.0 g/dL (3.5-5.2) 05/27/24 04:05 Globulin 2.1 g/dL (1.3-4.6) 05/27/24 04:05 TSH 3.53 uIU/mL (0.27-4.20) 05/27/24 04:05 All radiology interpretation(s) finalized by discharge Discharge Plan Discharge Patient Disposition: Home Clinical Impression: Cervical dystonia, Palpitations, Benign essential HTN Condition: Stable Prescriptions: No Action baclofen 10 mg tablet 10 mg PO BID PRN (Reason: spasm) Qty: 60 1RF cyanocobalamin (vitamin B-12) [Vitamin B-12] 1,000 mcg Tablet 1,000 mcg PO DAILY aspirin [Aspir-81] 81 mg Tablet,Delayed Release (Dr/Ec) 81 mg PO BEDTIME levothyroxine 75 mcg tablet 75 mcg PO QAM clonidine HCl 0.2 mg tablet 0.2 mg PO QID amlodipine 10 mg tablet 10 mg PO DAILY simvastatin 20 mg tablet 20 mg PO DAILY hydralazine 50 mg tablet 50 mg PO TID valsartan 160 mg tablet 160 mg PO DAILY cholecalciferol (vitamin D3) [Vitamin D3] 50 mcg (2,000 unit) Capsule 50 mcg PO DAILY carvedilol 25 mg tablet 25 mg PO BID Qty: 0 0RF tramadol 50 mg tablet 50 mg PO Q6H PRN (Reason: pain) Qty: 14 0RF Discharge Orders: Discharge ED (Routine); Ordered 05/27/24 Ordered By: Freedom Quinn Referrals: Gustavo Ignacio MD [Primary Care Provider] - Patient Instructions: Opioid Safety, Pain Management Activity Restrictions/Additional Instructions: Thank you for choosing [facility] for your healthcare needs today. It is very important that you follow up as instructed or that you return to the Emergency Department should you have concerns or if your condition changes or worsens in any way. You were seen today with complaints of palpitations and neck discomfort. Suspect your neck discomfort is an exacerbation of your chronic underlying problems worsened by the yardwork that you had done yesterday. Recommend you continue the tramadol has been previously prescribed and follow-up with pain clinic. You are also complaining of palpitations we did not see any arrhythmias on the evaluation done in the emergency room and your heart enzymes are normal. Will set you up for a 72-hour Holter monitor recommend that you establish with a PCP in the area. Sign Out Sign Out Data: Patient Sign Out occurred on 05/27/24 at 06:42. Patient's care was discussed, and care was transferred from Charles Sanchez DO to Freedom Quinn DO. Coding Level of Care Code ED Crystal Lapper for Chg Fwd Documented by User: Freedom Quinn DO 05/29/24 09:30 HPI - Arrhythmia/Palpitations General: Chief Complaint: Arrhythmia/Palpitations Stated Complaint: irregular heartbeat Time Seen by Provider: 05/27/24 03:36 Related Data Home Medications Medication Instructions Recorded Confirmed amlodipine 10 mg tablet 10 mg PO DAILY 06/23/21 05/27/24 aspirin 81 mg tablet,delayed 81 mg PO BEDTIME 06/23/21 05/27/24 release cholecalciferol (vitamin D3) 50 50 mcg PO DAILY 06/23/21 05/27/24 mcg (2,000 unit) capsule (Vitamin D3) clonidine HCl 0.2 mg tablet 0.2 mg PO QID 06/23/21 05/27/24 cyanocobalamin (vitamin B-12) 1,000 mcg PO DAILY 06/23/21 05/27/24 1,000 mcg tablet (Vitamin B-12) hydralazine 50 mg tablet 50 mg PO TID 06/23/21 05/27/24 levothyroxine 75 mcg tablet 75 mcg PO QAM 06/23/21 05/27/24 simvastatin 20 mg tablet 20 mg PO DAILY 06/23/21 05/27/24 valsartan 160 mg tablet 160 mg PO DAILY see pharmacy 06/23/21 05/27/24 comments Previous Rx's Medication Instructions Recorded carvedilol 25 mg tablet 25 mg PO BID #0 tabs 06/23/21 tramadol 50 mg tablet 50 mg PO Q6H PRN pain #14 tabs 12/27/21 baclofen 10 mg tablet 10 mg PO BID PRN spasm #60 tabs 01/21/24 Allergies Allergy/AdvReac Type Severity Reaction Status Date / Time No Known Allergies Allergy Verified 01/21/24 10:37 Review of Systems Const: Denies: fever(s) or chills Card: Denies: chest pain Resp: Denies: dyspnea GI: Denies: abdominal pain : Denies: dysuria, urinary frequency or urinary urgency Musc: Denies: neck pain or back pain Skin/Breast: Denies: rash PFSH ED PFSH: Medical History (Updated 05/27/24 @ 08:16 by Freedom Quinn DO) 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 Central stenosis of spinal canal Cervical dystonia Facet arthropathy, cervical Physical Exam Const: GENERAL APPEARANCE: cooperative ORIENTATION/CONSCIOUSNESS: Yes awake HENMT: COMMON NORMALS: normocephalic, atraumatic and hearing grossly normal bilaterally HEAD & SCALP: normocephalic and atraumatic Resp: COMMON NORMALS: normal respiratory effort, No retractions, No use of accessory muscles and clear to auscultation bilaterally AUSCULTATION: clear to auscultation bilaterally Cardio: COMMON NORMALS: regular rate, regular rhythm and No murmurs present (Cardio) RATE: regular rate RHYTHM: regular rhythm GI: COMMON NORMALS: Soft to palpation and No hepatosplenomegaly present AUSCULTATION: Yes normoactive bowel sounds PALPATION: Yes Soft to palpation, No Tenderness to palpation present (GI), No Guarding due to palpation present (GI) and Yes No hepatosplenomegaly present Extremity: COMMON NORMALS: normal to inspection, capillary refill normal, no clubbing, cyanosis or edema, no calf tenderness and no pedal edema Skin: COMMON NORMALS: no rashes or lesions noted GENERAL SKIN EXAM: no rashes or lesions noted Course Vital Signs: Vital signs: Vital Signs Temperature 97.4 F L 05/27/24 03:28 Pulse Rate 87 05/27/24 09:22 Respiratory Rate 16 05/27/24 06:00 Blood Pressure 164/81 05/27/24 09:22 Pulse Oximetry 95 05/27/24 09:22 Oxygen Delivery Me thod Room Air 05/27/24 04:09 MDM - Arrhythmia/Palpitations Medical Decision Making Care transferred over to Dr. Quinn at shift change Blood pressure monitors well-controlled labs and imaging reviewed no acute coronary syndrome present EKG does not show any acute abnormality. Troponins trending negative. He has not had any arrhythmias or palpitations or PV significant number of PVCs while in the emergency room. Will discharge patient home with 48-hour Holter monitor continue his other medications at this time and follow-up with primary care within the week. Lab Data 05/27/24 04:05 05/27/24 04:05 Radiology Impressions Chest X-Ray 05/27/24 03:36 IMPRESSION: 1. No acute cardiopulmonary findings. Laboratory Results WBC 7.43 10^3/uL (3.29-11.43) 05/27/24 04:05 RBC 4.62 10^6/uL (3.85-5.65) 05/27/24 04:05 Hgb 12.60 g/dL (11.27-16.99) 05/27/24 04:05 Hct 41.7 % (37-53) 05/27/24 04:05 MCV 90.3 fl (82-101) 05/27/24 04:05 MCH 27.3 pg (27-33) 05/27/24 04:05 MCHC 30.2 g/dL (30-55) 05/27/24 04:05 RDW 14.8 % (12.1-15.1) 05/27/24 04:05 Plt Count 163 10^3/cmm (157-399) 05/27/24 04:05 MPV 9.6 fL (7.4-10.4) 05/27/24 04:05 Neut % (Auto) 48.4 % 05/27/24 04:05 Lymph % (Auto) 38.0 % 05/27/24 04:05 Archuleta % (Auto) 8.9 % 05/27/24 04:05 Eos % (Auto) 3.5 % 05/27/24 04:05 Baso % (Auto) 0.9 % 05/27/24 04:05 Neut # (Auto) 3.60 10^3/uL (1.8-7.7) 05/27/24 04:05 Lymph # (Auto) 2.8 10^3/uL (0.8-4.8) 05/27/24 04:05 Archuleta # (Auto) 0.7 10^3/uL (0.2-0.9) 05/27/24 04:05 Eos # (Auto) 0.3 10^3/uL (0.0-0.8) 05/27/24 04:05 Baso # (Auto) 0.1 10^3/uL (0.0-0.1) 05/27/24 04:05 Nucleated RBC % (auto) 0 % 05/27/24 04:05 Nucleated RBCs # 0.0 /100WBC 05/27/24 04:05 Sodium 145 mmol/L (136-145) 05/27/24 04:05 Potassium 3.7 mmol/L (3.5-5.1) 05/27/24 04:05 Chloride 108 mmol/L (98-107) H 05/27/24 04:05 Carbon Dioxide 24 mmol/L (22-29) 05/27/24 04:05 Anion Gap 16.7 (5-19) 05/27/24 04:05 BUN 13 mg/dL (8-23) 05/27/24 04:05 Creatinine 0.9 mg/dL (0.7-1.2) 05/27/24 04:05 GFR Calculation Not Reportable 05/27/24 04:05 Glucose 112 mg/dL (65-115) 05/27/24 04:05 Calculated Osmolality 301 mOsm/kg (285-295) H 05/27/24 04:05 Calcium 9.3 mg/dL (8.5-10.5) 05/27/24 04:05 Magnesium 1.6 mg/dL (1.7-2.3) L 05/27/24 04:05 Total Bilirubin 0.3 mg/dL (0.15-1.2) 05/27/24 04:05 AST 26 U/L (0-40) 05/27/24 04:05 ALT 22 U/L (0-41) 05/27/24 04:05 Alkaline Phosphatase 98 U/L (40-130) 05/27/24 04:05 Troponin T Baseline 21 ng/L (0-15) H 05/27/24 04:05 Troponin T 120 Minute 19.42 ng/L (0-15) H 05/27/24 05:57 Delta Troponin T -1.58 ABS# (0-10) L 05/27/24 05:57 Total Protein 6.1 g/dL (6.6-8.7) L 05/27/24 04:05 Albumin 4.0 g/dL (3.5-5.2) 05/27/24 04:05 Globulin 2.1 g/dL (1.3-4.6) 05/27/24 04:05 TSH 3.53 uIU/mL (0.27-4.20) 05/27/24 04:05 Discharge Plan Discharge Patient Disposition: Home Clinical Impression: Cervical dystonia, Palpitations, Benign essential HTN Condition: Stable Prescriptions: No Action baclofen 10 mg tablet 10 mg PO BID PRN (Reason: spasm) Qty: 60 1RF cyanocobalamin (vitamin B-12) [Vitamin B-12] 1,000 mcg Tablet 1,000 mcg PO DAILY aspirin [Aspir-81] 81 mg Tablet,Delayed Release (Dr/Ec) 81 mg PO BEDTIME levothyroxine 75 mcg tablet 75 mcg PO QAM clonidine HCl 0.2 mg tablet 0.2 mg PO QID amlodipine 10 mg tablet 10 mg PO DAILY simvastatin 20 mg tablet 20 mg PO DAILY hydralazine 50 mg tablet 50 mg PO TID valsartan 160 mg tablet 160 mg PO DAILY cholecalciferol (vitamin D3) [Vitamin D3] 50 mcg (2,000 unit) Capsule 50 mcg PO DAILY carvedilol 25 mg tablet 25 mg PO BID Qty: 0 0RF tramadol 50 mg tablet 50 mg PO Q6H PRN (Reason: pain) Qty: 14 0RF Discharge Orders: Discharge ED (Routine); Ordered 05/27/24 Ordered By: Freedom Quinn Referrals: Gustavo Ignacio MD [Primary Care Provider] - Patient Instructions: Opioid Safety, Pain Management Activity Restrictions/Additional Instructions: Thank you for choosing [facility] for your healthcare needs today. It is very important that you follow up as instructed or that you return to the Emergency Department should you have concerns or if your condition changes or worsens in any way. You were seen today with complaints of palpitations and neck discomfort. Suspect your neck discomfort is an exacerbation of your chronic underlying problems worsened by the yardwork that you had done yesterday. Recommend you continue the tramadol has been previously prescribed and follow-up with pain clinic. You are also complaining of palpitations we did not see any arrhythmias on the evaluation done in the emergency room and your heart enzymes are normal. Will set you up for a 72-hour Holter monitor recommend that you establish with a PCP in the area. Sign Out Sign Out Data: Patient Sign Out occurred on 05/27/24 at 06:42. Patient's care was discussed, and care was transferred from Charles Sanchez DO to Freedom Quinn DO. Coding Level of Care Code ED Crystal Lapper for Nallely Choudhury
[2024-05-27 04:37] LABS: Troponin(5th) Baseline 21 ng/L (0-15)
[2024-05-27 04:46] LABS: Alanine Aminotransferase 22 U/L (0-41); Alkaline Phosphatase 98 U/L (40-130); Anion Gap 16.7 (5-19); Aspartate Amino Transferase 26 U/L (0-40); Blood Urea Nitrogen 13 mg/dL (8-23); Calcium 9.3 mg/dL (8.5-10.5); Carbon Dioxide 24 mmol/L (22-29); Chloride 108 mmol/L (98-107); Creatinine Clr Calc Pharmacy 55.5904; Globulin 2.1 g/dL (1.3-4.6); Glucose 112 mg/dL (65-115); Magnesium 1.6 mg/dL (1.7-2.3); Osmolality Calculated 301 mOsm/kg (285-295); Potassium 3.7 mmol/L (3.5-5.1); Sodium 145 mmol/L (136-145); Thyroid Stimulating Hormone 3.53 uIU/mL (0.27-4.20); Total Bilirubin 0.3 mg/dL (0.15-1.2); Total Protein 6.1 g/dL (6.6-8.7)
[2024-05-27] MEDS: hyDRALAzine 20 mg/mL INJ 1 mL 10 MG IVP (04:47)
--- NOTE | 2024-05-27 06:04 | ECG_ITS ---
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: : 1940 Requested By: Charles Sanchez Order Number: [id number] Reading MD: JOSE E LENNON Measurements Intervals [place] Rate: 84 P: 41 FL: 153 QRS: 14 QRSD: 127 T: -3 QT: 378 QTc: 447 Interpretive Statements SINUS RHYTHM POSSIBLE RIGHT VENTRICULAR CONDUCTION DELAY [RSR (QR) IN V1/V2] ST DEVIATION AND MODERATE T-WAVE ABNORMALITY, CONSIDER ANTEROLATERAL ISCHEMIA [-0.1+ mV T-WAVE IN V3-V6] Compared to ECG 05/27/2024 03:31:48 No significant changes Electronically Signed On 05-27-2024 21:10:36 CDT by JOSE E LENNON [email or web address]
[2024-05-27 06:25] LABS: Troponin 5 2HR 19.42 ng/L (0-15)
[2024-05-27 06:44] LABS: Troponin 5 2HR Delta -1.58 ABS# (0-10)
[2024-05-27] MEDS: orphenadrine 30 mg/mL Inj 2 mL 60 MG IM (08:39)
[2024-05-27] MEDS: ketorolac 30 mg/mL INJ 15 MG IVP (08:41)
[2024-05-27] MEDS: morphine 4 mg/mL SDV 1 mL 2 MG IVP (08:42)
--- NOTE | 2024-05-29 07:29 | DCPLANNER ---
messaged [facility] for er f/u
== END 2024-05-27 09:28 | disposition home or self-care (01) ==
PROVIDERS: Emergency Medicine; Emergency Provider Family Medicine; PCP Internal Medicine
DX: G24.3 Spasmodic torticollis (principal); R00.2 Palpitations; I10 Essential (primary) hypertension; Z79.82 Long term (current) use of aspirin
CPT/HCPCS: 36415; 71045; 80053; 83735; 84443; 84484; 85025; 93005; 96372; 96374; 96375; 99285; J0360; J1885; J2270; J2360

== ENCOUNTER 2025-03-23 12:48 | Inpatient (IN) | payer MEDICARE, SELFPAY ==
[2025-03-23] VITALS (14 sets, daily range): BP systolic 150–214; BP diastolic 42–119; PULSE 60–93; RESP 16–18; TEMP 37.1–37.2; O2SAT 90–95; BMI 22.6
--- NOTE | 2025-03-23 12:50 | XRR_ITS ---
PROCEDURE INFORMATION: Exam: XR Chest Exam date and time: 03/23/2025 12:51 PM Age: 84 years old Clinical indication: Other: AMS; Additional info: Altered mental status TECHNIQUE: Imaging protocol: Radiologic exam of the chest. Views: 1 view. COMPARISON: CR XR chest 1V portable [id number] 05/27/2024 4:06 AM FINDINGS: Lungs: Opacity is seen in the right mid lung and left lung base medially similar to that seen on prior exam from 2023. This likely represents an area of scarring. The lungs are hyperinflated. No acute appearing infiltrates are appreciated. Pleural spaces: Unremarkable. No pleural effusion. No pneumothorax. Heart/Mediastinum: Heart size is normal. There is calcified plaque involving the aorta. Bones/joints: Unremarkable. XR/XR chest 1V portable [id number] IMPRESSION: 1. Lung hyperinflation with stable opacities bilaterally likely representing areas of scarring. No definite acute infiltrate is identified.
--- OUTSIDE RECORDS SUMMARY | 2025-03-23 12:58 | XMS_ITS | Encounter Summary ---
Author Organization [facility] Address 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
--- OUTSIDE RECORDS SUMMARY | 2025-03-23 12:58 | XMS_ITS | Encounter Summary ---
Author Organization [employer] Address 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
--- OUTSIDE RECORDS SUMMARY | 2025-03-23 12:58 | XMS_ITS | Encounter Summary ---
Author Organization [employer] Address 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
--- OUTSIDE RECORDS SUMMARY | 2025-03-23 12:58 | XMS_ITS | Encounter Summary ---
Author Organization [employer] Address 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
--- OUTSIDE RECORDS SUMMARY | 2025-03-23 12:58 | XMS_ITS | Encounter Summary ---
Author Organization [employer] Address 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
--- OUTSIDE RECORDS SUMMARY | 2025-03-23 12:58 | XMS_ITS | Clinical Summary ---
Author Organization [facility] Address [address] [place] [address] Phone Care Team Providers Care Hotel Concierge Name Role Phone Unavailable Primary Care Provider Unavailabl e Allergies No known active allergies Medications amLODIPine (NORVASC) 10 mg tablet Take 10 mg by mouth daily. 12/08/2024 Active aspirin (ECOTRIN EC) 81 mg Tablet, Delayed Release (E.C.) Take 81 mg by mouth daily. Active baclofen (LIORESAL) 10 mg tablet Take 10 mg by mouth 2 times daily. 10/30/2024 Active carvediloL (COREG) 25 mg tablet Take 25 mg by mouth 2 times daily. Active Cholecalciferol, Vitamin D3, 50 mcg (2,000 unit) Capsule Take by mouth daily. Active cloNIDine HCL (CATAPRES) 0.2 mg tablet Take 0.2 mg by mouth 4 times daily. Active hydrALAZINE (APRESOLINE) 50 mg tablet Take 50 mg by mouth 2 times daily. 12/08/2024 Active levothyroxine 75 mcg tablet Take 75 mcg by mouth daily. Active simvastatin (ZOCOR) 20 mg tablet Take 20 mg by mouth daily. 12/08/2024 Active tamsulosin (FLOMAX) 0.4 mg capsule Take 0.4 mg by mouth daily. 09/03/2024 Active traMADol (ULTRAM) 50 mg tablet Take 50 mg by mouth 4 times daily. 09/03/2024 Active valsartan (DIOVAN) 160 mg tablet Take 160 mg by mouth daily. 12/08/2024 Active Active Problems No known active problems Encounters Date Type Department Care Team Description 02/18/2025 External Device Data [facility] ABSTRACTION Provider, Abstract 02/17/2025 External Device Data [facility] ABSTRACTION Provider, Abstract 02/11/2025 Orders Only [facility] [address] [place] [id number] Provider, Abstract 02/05/2025 9:15 AM CDT Ancillary Procedure [facility] [address] [place] [address] Isabella Fay MD Arthralgia of both hands 02/05/2025 8:00 AM CDT Office Visit [facility] [address] [place] [address] Isabella Fay MD Chronic neck pain (Primary Dx); Degenerative disc disease, cervical; Arthralgia of both hands; Rheumatoid factor positive 02/05/2025 Telephone [facility] [address] [place] [address] Isabella Fay MD Advice Only 01/20/2025 External Device Data [facility] ABSTRACTION Provider, Abstract 12/25/2024 External Device Data [facility] ABSTRACTION Provider, Abstract 12/23/2024 External Device Data [facility] ABSTRACTION Provider, Abstract from Last 3 Months Social History Tobacco Use Types Packs/Day Years Used Date Smoking Tobacco: Former Cigarettes 1 1 4 1974 Passive Smoke Exposure: Past Tobacco Cessation:Counseling Given: Not Answered Sex and Gender Information Value Date Recorded Sex Assigned at Not on file 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 Gender Identity Not on file Sexual Orientation Not on file Last Filed Vital Signs Vital Sign Reading Time Taken Comments Blood Pressure 130/64 02/05/2025 7:59 AM CDT Pulse 82 02/05/2025 7:59 AM CDT Temperature - - Respiratory Rate - - Oxygen Saturation 96% 02/05/2025 7:59 AM CDT Inhaled Oxygen Concentration - - Weight 62.8 kg (138 lb 6.4 oz) 02/05/2025 7:59 A M CDT Height 167.6 cm (5' 6 ) 02/05/2025 7:59 AM CDT Body Mass Index 22.34 02/05/2025 7:59 AM CDT Plan of Treatment Health Maintenance Due Date Last Done Comments DTAP/TDAP/TD VACCINES (1 - Tdap) 1957 ZOSTER VACCINE (1 of 2) 1988 RSV VACCINE (60+ or ) (1 - 1-dose 75+ series) 2013 COVID-19 Vaccine (7 - 2023-2 5 season) 2024 05/12/2024, 05/25/2023, 06/06/2022, Additional history exists INFLUENZA VACCINE (#1) 2025 , 05/25/2023, 06/06/2022, Additional history exists PNEUMOCOCCAL VACCINE 50+ YEARS Completed 07/02/2024 , 12/30/2015 Procedures Procedure Name Priority Date/Time Associated Diagnosis Comments XR HAND 3+ VW BILAT Routine 02/05/2025 9 :20 AM CDT Arthralgia of both hands from Last 3 Months Results * XR HAND 3+ VW BILAT (02/05/2025 9:20 AM CDT) Anatomical Region Laterality Modality Wrist / Hand Computed Radiogr aphy 02/05/2025 9:20 AM CDT Narrative 02/05/2025 9:38 AM CDT XR HAND 3+ VW BILAT 02/05/2025 9:20 AM Reason For Exam: See Diagnosis. Diagnosis: Arthralgia of both hands; Arthralgia of both hands. COMPARISON: None FINDINGS: No acute fracture, subluxation, dislocation, or destructive osseous lesion is seen. Mild bilateral DJD seen at the first carpometacarpal joints with loss of joint space. More mild multifocal DJD is seen elsewhere. Extensive bilateral vascular calcification is present. Procedure Note Joel Muñiz MD - 02/05/2025 XR HAND 3+ VW BILAT 02/05/2025 9:20 AM Reason For Exam: See Diagnosis. Diagnosis: Arthralgia of both hands; Arthralgia of both hands. COMPARISON: None FINDINGS: No acute fracture, subluxation, dislocation, or destructive osseous lesion is seen. Mild bilateral DJD seen at the first carpometacarpal joints with loss of joint space. More mild multifocal DJD is seen elsewhere. Extensive bilateral vascular calcification is present. Isabella Fay MD DIAGNOSTIC I MAGING ORDERABLES Final Result from Last 3 Months Insurance [place] [id number]
--- OUTSIDE RECORDS SUMMARY | 2025-03-23 12:58 | XMS_ITS | Encounter Summary ---
Author Organization [facility] Address 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
--- OUTSIDE RECORDS SUMMARY | 2025-03-23 12:58 | XMS_ITS | Encounter Summary ---
Author Organization [facility] Address 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
--- NOTE | 2025-03-23 13:04 | W.ED.AMS ---
HPI - Altered Mental Status General: Chief Complaint: Altered Mental Status Stated Complaint: AMS; WEAKNESS Time Seen by Provider: 03/23/25 12:50 History of Present Illness: 84-year-old male who presents to the emergency room with report of altered mental status. 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 Family related to EMS that he has acute altered mental status he is not able to answer many other questions for me were able to get through review of systems which he answers negatively to all except the neck. Initially when I seen the patient there is no family at the bedside to help with history. He does have significant hypertension we will initial blood pressure of 203/102 he has no focal neurologic deficits. Related Data Home Medications ?Medication ?Instructions ?Recorded ?Confirmed amlodipine 10 mg tablet 10 mg PO DAILY 06/23/21 03/23/25 aspirin 81 mg tablet,delayed 81 mg PO BEDTIME 06/23/21 03/23/25 release cholecalciferol (vitamin D3) 50 50 mcg PO DAILY 06/23/21 03/23/25 mcg (2,000 unit) capsule (Vitamin D3) clonidine HCl 0.2 mg tablet 0.2 mg PO QID 06/23/21 03/23/25 cyanocobalamin (vitamin B-12) 1,000 mcg PO DAILY 06/23/21 03/23/25 1,000 mcg tablet (Vitamin B-12) hydralazine 50 mg tablet 50 mg PO TID 06/23/21 03/23/25 levothyroxine 75 mcg tablet 75 mcg PO QAM 06/23/21 03/23/25 simvastatin 20 mg tablet 20 mg PO QPM 06/23/21 03/23/25 valsartan 160 mg tablet 160 mg PO DAILY 06/23/21 03/23/25 cimetidine 200 mg tablet 200 mg PO TID PRN Acid Reflux 03/23/25 03/23/25 Previous Rx's ?Medication ?Instructions ?Recorded carvedilol 25 mg tablet 25 mg PO BID #0 tabs 06/23/21 tramadol 50 mg tablet 50 mg PO Q6H PRN pain #14 tabs 12/27/21 baclofen 10 mg tablet 10 mg PO BID PRN spasm #60 tabs 01/21/24 Allergies Allergy/AdvReac Type Severity Reaction Status Date / Time No Known Allergies Allergy Verified 01/21/24 10:37 Review of Systems Const: Denies: fever(s) or chills Card: Denies: chest pain Resp: Denies: dyspnea GI: Denies: abdominal pain : Denies: dysuria, urinary frequency or urinary urgency Musc: Denies: neck pain or back pain Skin/Breast: Denies: rash PFSH ED PFSH: Medical History 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 Central stenosis of spinal canal Cervical dystonia Facet arthropathy, cervical Physical Exam Const: COMMON NORMALS: no acute distress GENERAL APPEARANCE: cooperative and comfortable ORIENTATION/CONSCIOUSNESS: Yes awake, Yes oriented to person, Yes oriented to place and Yes oriented to time HENMT: COMMON NORMALS: normocephalic, atraumatic and hearing grossly normal bilaterally HEAD & SCALP: normocephalic and atraumatic Resp: COMMON NORMALS: normal respiratory effort, No retractions, No use of accessory muscles and clear to auscultation bilaterally AUSCULTATION: clear to auscultation bilaterally Cardio: COMMON NORMALS: regular rate, regular rhythm and No murmurs present (Cardio) RATE: regular rate RHYTHM: regular rhythm GI: COMMON NORMALS: Soft to palpation and No hepatosplenomegaly present AUSCULTATION: Yes normoactive bowel sounds PALPATION: Yes Soft to palpation, No Tenderness to palpation present (GI), No Guarding due to palpation present (GI) and Yes No hepatosplenomegaly present Extremity: COMMON NORMALS: normal to inspection, capillary refill normal, no clubbing, cyanosis or edema, no calf tenderness and no pedal edema Neuro: SENSORIUM/ORIENTATION: Yes oriented to person, Yes oriented to place and Yes oriented to time Skin: COMMON NORMALS: no rashes or lesions noted GENERAL SKIN EXAM: no rashes or lesions noted Course Vital Signs: Vital signs: Vital Signs Temperature 98.7 F 03/23/25 12:49 Pulse Rate 92 03/23/25 12:49 Respiratory Rate 16 03/23/25 12:49 Blood Pressure 203/102 03/23/25 12:49 Pulse Oximetry 93 03/23/25 12:49 Oxygen Delivery Me thod Room Air 03/23/25 12:49 MDM - Altered Mental Status Medical Decision Making Labs and imaging. CT head. No leukocytosis patient does have a mild cystitis. He is not septic infection and son and reiterate this. Will place patient on observation for encephalopathy continue IV antibiotics IV fluids. Discussed with Dr. Agarwal orders written Medical Records I reviewed the patient's medical records. Lab Data I reviewed the patient's lab results. 03/23/25 13:03 03/23/25 13:03 Radiology Impressions Chest X-Ray 03/23/25 12:50 IMPRESSION: 1. Lung hyperinflation with stable opacities bilaterally likely representing areas of scarring. No definite acute infiltrate is identified. Head CT 03/23/25 13:06 Impression: Moderate cerebral atrophy. Laboratory Results WBC 11.35 10^3/uL (3.29-11.43) 03/23/25 13:03 RBC 4.74 10^6/uL (3.85-5.65) 03/23/25 13:03 Hgb 13.10 g/dL (11.27-16.99) 03/23/25 13:03 Hct 42.2 % (37-53) 03/23/25 13:03 MCV 89.0 fl (82-101) 03/23/25 13:03 MCH 27.6 pg (27-33) 03/23/25 13:03 MCHC 31.0 g/dL (30-55) 03/23/25 13:03 RDW 14.5 % (12.1-15.1) 03/23/25 13:03 Plt Count 243 10^3/cmm (157-399) 03/23/25 13:03 MPV 9.4 fL (7.4-10.4) 03/23/25 13:03 Neut % (Auto) 73.8 % 03/23/25 13:03 Lymph % (Auto) 19.0 % 03/23/25 13:03 [place] % (Auto) 6.1 % 03/23/25 13:03 Eos % (Auto) 0.4 % 03/23/25 13:03 Baso % (Auto) 0.4 % 03/23/25 13:03 Neut # (Auto) 8.38 10^3/uL (1.8-7.7) H 03/23/25 13:03 Lymph # (Auto) 2.2 10^3/uL (0.8-4.8) 03/23/25 13:03 [place] # (Auto) 0.7 10^3/uL (0.2-0.9) 03/23/25 13:03 Eos # (Auto) 0.0 10^3/uL (0.0-0.8) 03/23/25 13:03 Baso # (Auto) 0.1 10^3/uL (0.0-0.1) 03/23/25 13:03 Nucleated RBC % (auto) 0 % 03/23/25 13:03 Nucleated RBCs # 0.0 /100WBC 03/23/25 13:03 Sodium 137 mmol/L (136-145) 03/23/25 13:03 Potassium 4.1 mmol/L (3.5-5.1) 03/23/25 13:03 Chloride 100 mmol/L (98-107) 03/23/25 13:03 Carbon Dioxide 26 mmol/L (22-29) 03/23/25 13:03 Anion Gap 15.1 (5-19) 03/23/25 13:03 BUN 22 mg/dL (8-23) 03/23/25 13:03 Creatinine 1.0 mg/dL (0.7-1.2) 03/23/25 13:03 GFR Calculation Not Reportable 03/23/25 13:03 Glucose 154 mg/dL (65-115) H 03/23/25 13:03 Calculated Osmolality 290 mOsm/kg (285-295) 03/23/25 13:03 Calcium 10.1 mg/dL (8.5-10.5) 03/23/25 13:03 Total Bilirubin 0.4 mg/dL (0.15-1.2) 03/23/25 13:03 AST 20 U/L (0-40) 03/23/25 13:03 ALT 17 U/L (0-41) 03/23/25 13:03 Alkaline Phosphatase 88 U/L (40-130) 03/23/25 13:03 Troponin T Baseline 18 ng/L (0-15) H 03/23/25 13:03 Troponin T 120 Minute 16.10 ng/L (0-15) H 03/23/25 14:52 Delta Troponin T -1.90 ABS# (0-10) L 03/23/25 14:52 Total Protein 6.4 g/dL (6.6-8.7) L 03/23/25 13:03 Albumin 4.1 g/dL (3.5-5.2) 03/23/25 13:03 Globulin 2.3 g/dL (1.3-4.6) 03/23/25 13:03 Urine Color Yellow (Yellow) 03/23/25 13:38 Urine Appearance Clear (CLEAR) 03/23/25 13:38 Urine pH 5.5 (5-7) 03/23/25 13:38 Ur Specific [place] 1.021 (1.005-1.030) 03/23/25 13:38 Urine Protein Trace (Negative) A 03/23/25 13:38 Urine Glucose (UA) Negative (Normal) 03/23/25 13:38 Urine Ketones Trace (Negative) 03/23/25 13:38 Urine Blood Negative (Negative) 03/23/25 13:38 Urine Nitrate Negative (Negative) 03/23/25 13:38 Urine Bilirubin Negative (Negative) 03/23/25 13:38 Urine Urobilinogen 1.0 mg/dL (Negative) 03/23/25 13:38 Ur Leukocyte Esterase Trace (Negative) A 03/23/25 13:38 Urine RBC 5-10 /hpf (0-2) H 03/23/25 13:38 Urine WBC 15-25 /hpf (0-5) H 03/23/25 13:38 Ur Squamous Epith Cells 0-4 /hpf (0-5) H 03/23/25 13:38 Amorphous Sediment Not Reportable 03/23/25 13:38 Urine Bacteria None /hpf (NONE) 03/23/25 13:38 Hyaline Casts 5-10 /lpf H 03/23/25 13:38 Urine Mucus 2+ /hpf 03/23/25 13:38 Salicylates < 0.3 mg/dL (3-10) L 03/23/25 13:03 Urine Opiates Screen Negative ng/mL (Negative) 03/23/25 13:38 Acetaminophen < 5.0 ug/mL (10-30) L 03/23/25 13:03 Ur Barbiturates Screen Negative ng/mL (Negative) 03/23/25 13:38 Ur Phencyclidine Scrn Negative ng/mL (Negative) 03/23/25 13:38 Ur Amphetamines Screen Negative ng/mL (Negative) 03/23/25 13:38 U Benzodiazepines Scrn Negative ng/mL (Negative) 03/23/25 13:38 Urine Cocaine Screen Negative ng/mL (Negative) 03/23/25 13:38 U Marijuana (THC) Screen Negative ng/mL (Negative) 03/23/25 13:38 Ethyl Alcohol < 10 mg/dL (0-10) 03/23/25 13:03 All radiology interpretation(s) finalized by discharge Discharge Plan Discharge Patient Disposition: Placed in Observation Admit Provider: Susan Agarwal Clinical Impression: HTN (hypertension), Cystitis, Encephalopathy acute Coding Level of Care Code ED [employer] for Nallely Choudhury
--- NOTE | 2025-03-23 13:06 | CT_ITS ---
WS: [id number] CT scan of the head, 03/23/2025 Clinical Data: Altered mental status, hypertension Comparison: None. DLP: 1234.[address] scans at [facility] use at least one of these dose optimization techniques: automated exposure control; mA and/or kV adjustment per patient size (includes targeted exams where dose is matched to clinical indication); or iterative reconstruction. Findings: The ventricular system is moderately dilated without shift. No recent infarct or hemorrhage is seen. There are no abnormal intracerebral masses. The cerebellum and brainstem are not remarkable. Bony windows of the skull and skull base show no fractures or erosions. The mastoid air cells, internal auditory canals, sella turcica, intraorbital contents, and paranasal sinuses are unremarkable. CT/CT head wo con* [id number] Impression: Moderate cerebral atrophy.
[2025-03-23 13:11] LABS: Hematocrit 42.2 % (37-53); Hemoglobin 13.10 g/dL (11.27-16.99); Mean Corpuscular HGB Conc 31.0 g/dL (30-55); Mean Corpuscular Hemoglobin 27.6 pg (27-33); Mean Corpuscular Volume 89.0 fl (82-101); Nucleated Red Blood Cells % 0 %; Platelet Count 243 10^3/cmm (157-399); Red Blood Count 4.74 10^6/uL (3.85-5.65); White Blood Count 11.35 10^3/uL (3.29-11.43)
[2025-03-23 13:34] LABS: Alanine Aminotransferase 17 U/L (0-41); Albumin Level 4.1 g/dL (3.5-5.2); Alkaline Phosphatase 88 U/L (40-130); Aspartate Amino Transferase 20 U/L (0-40); Blood Urea Nitrogen 22 mg/dL (8-23); Calcium 10.1 mg/dL (8.5-10.5); Carbon Dioxide 26 mmol/L (22-29); Chloride 100 mmol/L (98-107); Creatinine Clr Calc Pharmacy 47.7609; Globulin 2.3 g/dL (1.3-4.6); Glucose 154 mg/dL (65-115); Osmolality Calculated 290 mOsm/kg (285-295); Sodium 137 mmol/L (136-145); Total Protein 6.4 g/dL (6.6-8.7)
[2025-03-23 13:35] LABS: Acetaminophen < 5.0 ug/mL (10-30); Alcohol Level < 10 mg/dL (0-10); Salicylate < 0.3 mg/dL (3-10)
[2025-03-23 13:36] LABS: Anion Gap 15.1 (5-19); Potassium 4.1 mmol/L (3.5-5.1)
[2025-03-23 13:37] LABS: Troponin(5th) Baseline 18 ng/L (0-15)
[2025-03-23 13:56] LABS: Glucose Urine UA Negative (Normal); Nitrate Urine Negative (Negative); Specific Gravity, Urine 1.021 (1.005-1.030)
[2025-03-23 14:03] LABS: PCP Screen Urine Negative (Negative)
[2025-03-23 14:16] LABS: Add Urine Microscopic? YES
[2025-03-23] MEDS: labetalol 5 mg/mL SDV 20mL 10 MG IVP (14:35)
[2025-03-23] MEDS: hyDRALAzine 20 mg/mL INJ 1 mL 10 MG IVP ×2 (14:35→18:52)
--- NOTE | 2025-03-23 14:51 | ECG_ITS ---
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 Measurements Intervals [place] Rate: 80 P: 171 MN: 150 QRS: 151 QRSD: 126 T: 194 QT: 385 QTc: 447 Interpretive Statements SUPRAVENTRICULAR RHYTHM RIGHT VENTRICULAR HYPERTROPHY [SOME/ALL OF: PROMINENT R IN V1, LATE TRANSITION, RAD, MARIAELENA, SSS] ST DEVIATION AND MARKED T-WAVE ABNORMALITY, CONSIDER ANTEROLATERAL ISCHEMIA [-0.5+ mV T-WAVE IN I/aVL/V3-V6] ST DEVIATION AND MODERATE T-WAVE ABNORMALITY, CONSIDER INFERIOR ISCHEMIA [-0.1+ mV T-WAVE IN II/aVF] Compared to ECG 05/27/2024 06:04:29 T-wave abnormality still present Possible ischemia still present Electronically Signed On 03-28-2025 09:49:56 CDT by Jassi Johnson M.D. [id number] [id number]
--- NOTE | 2025-03-23 15:10 | PC.PHAR ---
Addendum entered by Esperanza Mancilla 03/23/25 15:12: Pt uses [facility]. Original Note: Spouse states unknown last time pt took all his medications, maybe last or Sunday. Pt only took Tramadol 50mg and Baclofen 10mg today.
[2025-03-23 15:22] LABS: Troponin 5 2HR 16.10 ng/L (0-15)
[2025-03-23 15:25] LABS: Troponin 5 2HR Delta -1.90 ABS# (0-10)
[2025-03-23] MEDS: cefTRIAXone 1,000 mg SDV 1000 MG IVP (16:01)
[2025-03-23] MEDS: LORazepam 1 MG/0.5 ML injection 0.5 MG IVP (16:02)
--- NOTE | 2025-03-23 17:03 | PM.HP ---
Providers/Chief Complaint Primary Care Provider: Darrick Brandt DO Chief Complaint: AMS; WEAKNESS History of Present Illness Jay Bro is a 84 year old male with past med history of hypertension, hypothyroidism presented to the hospital today with lethargy weakness and altered mental status. Patient on room air saturating 93% saturation. On arrival blood pressure recently hospitalized 203/102. Patient's family is who provides the history. Patient's and nephew are there. They state that he has had poor oral intake since today before yesterday. He has been sleeping in bed all day. Having chills. At this time patient feeling cold as well. Patient is confused unable to provide any history at this time. Medications/Allergies Home Medications ?Medication ?Instructions ?Recorded ?Confirmed ?Last Taken ?Type amlodipine 10 mg tablet 10 mg PO DAILY 06/23/21 03/23/25 05/26/24 History aspirin 81 mg tablet,delayed 81 mg PO BEDTIME 06/23/21 03/23/25 05/26/24 History release carvedilol 25 mg tablet 25 mg PO BID #0 tabs 06/23/21 03/23/25 05/26/24 Rx cholecalciferol (vitamin D3) 50 50 mcg PO DAILY 06/23/21 03/23/25 05/26/24 History mcg (2,000 unit) capsule (Vitamin D3) clonidine HCl 0.2 mg tablet 0.2 mg PO QID 06/23/21 03/23/25 05/26/24 History cyanocobalamin (vitamin B-12) 1,000 mcg PO DAILY 06/23/21 03/23/25 05/26/24 History 1,000 mcg tablet (Vitamin B-12) hydralazine 50 mg tablet 50 mg PO TID 06/23/21 03/23/25 05/26/24 History levothyroxine 75 mcg tablet 75 mcg PO QAM 06/23/21 03/23/25 05/26/24 History simvastatin 20 mg tablet 20 mg PO QPM 06/23/21 03/23/25 05/26/24 History valsartan 160 mg tablet 160 mg PO DAILY 06/23/21 03/23/25 05/26/24 History tramadol 50 mg tablet 50 mg PO Q6H PRN pain #14 tabs 12/27/21 03/23/25 03/23/25 Rx baclofen 10 mg tablet 10 mg PO BID PRN spasm #60 tabs 01/21/24 03/23/25 03/23/25 Rx cimetidine 200 mg tablet 200 mg PO TID PRN Acid Reflux 03/23/25 03/23/25 Unknown History Allergies Allergy/AdvReac Type Severity Reaction Status Date / Time No Known Allergies Allergy Verified 01/21/24 10:37 PFSH Acute PFSH: Medical History (Updated 03/23/25 @ 17:16 by Susan Agarwal MD) 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 Patient appears dehydrated. HEENT: Normocephalic, atraumatic, EOMI, breathing room air. Cardio: Regular rate rhythm, normal S1-S2, no gross murmurs. Respiratory: Clear to auscultation bilaterally no wheezes or rhonchi. GI: Abdomen soft, nontender, nondistended, bowel sounds + Extremities: No edema bilateral lower extremities Data 03/23/25 13:03 03/23/25 13:03 A&P Assessment and plan 1. HTN (hypertension): 2. Altered mental status: Plan: #Altered mental status #Hypertensive urgency #Weakness, chills, poor oral intake ? Continue aspirin, - Hydralazine 50 3 times daily ? Continue levothyroxine 75 daily - Losartan 160 daily. -HbA1c, TSH, blood cultures, urine culture ? Urinalysis. ? Check CT chest abdomen pelvis ? Hydrate patient with normal saline 100 cc/h. ? Check troponins?18, 16. -Placed on Zosyn ? Urine drug screen negative CT head negative Will need to confirm home medications before ordering. Have discussed with ER to confirm home meds. Full code DVT prophylaxis: Lovenox 40 daily PDMP PDMP Reviewed: Not Reviewed Attestations Medical Necessity Statement*: UTI, AMS Diagnoses HTN (hypertension) I10 Altered mental status R41.82
--- NOTE | 2025-03-23 17:13 | CTR_ITS ---
PROCEDURE INFORMATION: Exam: CT Abdomen And Pelvis Without Contrast Exam date and time: 03/23/2025 5:41 PM Age: 84 years old Clinical indication: Other: AMS; Additional info: R/O infection TECHNIQUE: Imaging protocol: Computed tomography of the abdomen and pelvis without contrast. Radiation optimization: All CT scans at this facility use at least one of these dose optimization techniques: automated exposure control; mA and/or kV adjustment per patient size (includes targeted exams where dose is matched to clinical indication); or iterative reconstruction. COMPARISON: CT chest wo con [id number] 09/05/2022 8:58 AM RADIATION DOSE METRICS: Total DLP (mGy-cm): 517.43 FINDINGS: Lungs: Subpleural reticulation and small bullae are seen at the lung bases likely representing sequela of paraseptal emphysema. Heart: Aortic valvular calcifications. Coronary arteries: Mild coronary artery calcifications. Liver: Subcentimeter ovoid calcification seen along the right posterior liver. The liver is normal in size. Gallbladder and biliary ducts: Normal. No calcified stones. No ductal dilation. Pancreas: Multiple calcification seen throughout the parenchyma of the pancreas favored to represent vascular calcifications. Spleen: Normal. No splenomegaly. Adrenal glands: Normal. No mass. Kidneys and ureters: Innumerable cysts seen throughout the kidneys bilaterally. Largest of which is seen in the anterior lower pole of the right kidney. 5.8 cm at the lower pole of the left kidney. Punctate nonobstructing nephrolithiasis bilaterally. Stomach and bowel: Moderate constipation. Colonic diverticulosis without definitive CT evidence to suggest acute diverticulitis. No small or large bowel obstruction. Appendix: The appendix is partially air-filled and unremarkable. Intraperitoneal space: Unremarkable. No free air. No significant fluid collection. Vasculature: Severe aortoiliac atherosclerosis. Lymph nodes: Unremarkable. No enlarged lymph nodes. Urinary bladder: Mild distension of the urinary bladder. Reproductive: Parenchymal calcifications within the prostate. Bones/joints: Moderate multilevel degenerative disease of the thoracolumbar spine. No acute osseous abnormality. Soft tissues: Small fat containing inguinal hernias. CT/CT abdomen pelvis wo con [id number] IMPRESSION: 1. Innumerable simple appearing cysts in the bilateral kidneys with punctate nonobstructing nephrolithiasis bilaterally. 2. Moderate colonic diverticulosis without definitive CT evidence to suggest acute diverticulitis. Mild constipation. 3. Other chronic findings as detailed in the body of the report. COMMENTS: Consistent with the [place] [employer]'s Incidental Findings Committee white paper (J Am Roslyn Radiol 2018): Any incidental renal lesion less than 1 cm or classified as too small to characterize, or any incidental cystic renal lesion characterized as simple-appearing, is likely benign. No follow-up imaging is recommended for these lesions per consensus recommendations based on imaging criteria.
[2025-03-23 18:46] LABS: Procalcitonin 0.10 ng/mL (0-0.5)
--- NOTE | 2025-03-23 18:51 | ECG_ITS ---
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 Measurements Intervals [place] Rate: 81 P: -32 SD: 139 QRS: -10 QRSD: 128 T: -45 QT: 373 QTc: 435 Interpretive Statements SINUS RHYTHM RIGHT BUNDLE BRANCH BLOCK [120+ ms QRS DURATION, UPRIGHT V1, 40+ ms S IN I/aVL/V4/V5/V6] INFERIOR MYOCARDIAL INFARCTION , OF INDETERMINATE AGE [40+ ms Q WAVE AND/OR ST/T ABNORMALITY IN II/aVF] MODERATE T-WAVE ABNORMALITY, CONSIDER LATERAL ISCHEMIA [-0.1+ mV T-WAVE IN I/aVL/V5/V6] Compared to ECG 03/23/2025 15:39:12 Right bundle-branch block now present Myocardial infarct finding now present Atrial abnormality no longer present Electronically Signed On 03-28-2025 09:48:51 CDT by Jassi Johnson M.D. [email or web address]
--- NOTE | 2025-03-23 19:04 | PC.NURSE ---
Admission complete by spouse. Patient is confused and combative at this time. Dr Agarwal was informed and received orders as documented and administered.
[2025-03-23 19:10] LABS: Procalcitonin 0.10 ng/mL (0-0.5); Thyroid Stimulating Hormone 0.92 uIU/mL (0.27-4.20)
[2025-03-23 19:20] LABS: Cholesterol 191 mg/dL (0-200); HDL Cholesterol 37 mg/dL (60-100); Triglycerides 112 mg/dL (0-150)
[2025-03-23 19:41] LABS: Estmated Average Glucose 108; Hemoglobin A1C 5.4 % (4.0-6.0)
[2025-03-23 19:55] LABS: Troponin 5 6HR 16.53 ng/L (0-15)
[2025-03-23 19:56] LABS: Lactic Sepsis W/Reflex 1.4 mmol/L (0.5-2.2)
[2025-03-23 19:57] LABS: Troponin 5 6HR Delta -1.47 ng/L (0-12)
[2025-03-23] MEDS: piperacillin-tazobactam 3.375 GM in sodium chloride 0.9% (plus) 50 ML IV (20:25)
[2025-03-24] VITALS (25 sets, daily range): BP systolic 112–192; BP diastolic 46–83; PULSE 80–107; RESP 18–30; TEMP 36.5–37.3; O2SAT 92–96
[2025-03-24] MEDS: LORazepam 1 MG/0.5 ML injection IVP (01:33)
[2025-03-24] MEDS: piperacillin-tazobactam 3.375 GM in sodium chloride 0.9% (plus) 50 ML IV ×3 (03:46→23:02)
[2025-03-24 04:07] LABS: Hematocrit 39.5 % (37-53); Hemoglobin 12.30 g/dL (11.27-16.99); Mean Corpuscular HGB Conc 31.1 g/dL (30-55); Mean Corpuscular Hemoglobin 27.8 pg (27-33); Mean Corpuscular Volume 89.4 fl (82-101); Nucleated Red Blood Cells % 0 %; Platelet Count 194 10^3/cmm (157-399); Red Blood Count 4.42 10^6/uL (3.85-5.65); White Blood Count 9.72 10^3/uL (3.29-11.43)
[2025-03-24 04:24] LABS: Alanine Aminotransferase 15 U/L (0-41); Albumin Level 3.9 g/dL (3.5-5.2); Alkaline Phosphatase 87 U/L (40-130); Anion Gap 14.1 (5-19); Aspartate Amino Transferase 19 U/L (0-40); Blood Urea Nitrogen 17 mg/dL (8-23); Calcium 9.9 mg/dL (8.5-10.5); Carbon Dioxide 27 mmol/L (22-29); Chloride 104 mmol/L (98-107); Creatinine Clr Calc Pharmacy 51.5860; Globulin 2.5 g/dL (1.3-4.6); Glucose 103 mg/dL (65-115); Magnesium 2.0 mg/dL (1.7-2.3); Osmolality Calculated 294 mOsm/kg (285-295); Potassium 4.1 mmol/L (3.5-5.1); Sodium 141 mmol/L (136-145); Total Protein 6.4 g/dL (6.6-8.7)
[2025-03-24] MEDS: labetalol 5 mg/mL SDV 20mL 10 MG IVP (04:55)
[2025-03-24 09:01] LABS: ABG PCO2 38.8 mmHg (35-45); ABG PH Result 7.45 (7.35-7.45); Alveolar-Arterial Oxygen Gradi 4.2 mmHg (5-10); Arterial Blood Gas Hematocrit 36.7 % (42-52); Blood Gas Allen Test Pos; Blood Gas Operator Identificat glc; Blood Gas Sample Site Radial, right; Blood Gas Sample Type Arterial; Carboxyhemoglobin < 0.3 %THgb (0.4-20.1); Glucose Level-ABG 100.0 mg/dL (70-115); HCO3 ABG 26.9 mmol/L (22-26); Ionized Calcium Level - ABG 1.3 mmol/L (1.1-1.4); Methemoglobin 0.4 % (0.4-1.5); Oxygen Saturation ABG 92.5; PO2 ABG 69.4 mmHg (80.0-100.0); PO2 FiO2 Ratio Arterial Blood 330; Potassium Level - ABG 3.7 mmol/L (3.5-5.0); Sodium Level - ABG 143.0 mmol/L (131-143)
--- OUTSIDE RECORDS SUMMARY | 2025-03-24 09:12 | XMS_ITS | Encounter Summary ---
Author Organization [employer] Address 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
--- OUTSIDE RECORDS SUMMARY | 2025-03-24 09:12 | XMS_ITS | Encounter Summary ---
Author Organization [employer] Address 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
--- OUTSIDE RECORDS SUMMARY | 2025-03-24 09:12 | XMS_ITS | Encounter Summary ---
Author Organization [employer] Address 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
--- OUTSIDE RECORDS SUMMARY | 2025-03-24 09:12 | XMS_ITS | Clinical Summary ---
Author Organization [facility] Address [address] [place] [address] Phone Care Team Providers Care Mine Car Repairer Name Role Phone Unavailable Primary Care [...] STL ABSTRACTION Provider, Abstract 02/11/2025 Orders Only [facility] HIM [address] [place] [id number] Provider, Abstract 02/05/2025 9:15 AM CDT Ancillary Procedure [facility] [address] [place] [address] Isabella Fay MD Arthralgia of both hands 02/05/2025 8:00 AM CDT Office Visit [facility] Rheumatology- [facility] [address] [place] [address] Isabella Fay MD Chronic neck pain (Primary Dx); Degenerative disc disease, cervical; Arthralgia of both hands; Rheumatoid factor positive 02/05/2025 Telephone [facility] [address] [place] [address] Isabella Fay MD Advice Only 01/20/2025 External [...] on file 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
--- OUTSIDE RECORDS SUMMARY | 2025-03-24 09:12 | XMS_ITS | Encounter Summary ---
Author Organization [employer] Address 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
--- OUTSIDE RECORDS SUMMARY | 2025-03-24 09:12 | XMS_ITS | Encounter Summary ---
Author Organization [facility] Address 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
--- OUTSIDE RECORDS SUMMARY | 2025-03-24 09:12 | XMS_ITS | Encounter Summary ---
Author Organization [employer] Address 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
--- OUTSIDE RECORDS SUMMARY | 2025-03-24 09:12 | XMS_ITS | Encounter Summary ---
Author Organization [facility] Address 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
[2025-03-24 09:45] LABS: Iron 36 ug/dL (59-158); Total Iron Binding Capacity 257 mcg/dl; Unsaturated Iron Binding 221 ug/dL (112-347)
--- NOTE | 2025-03-24 09:54 | PC.CHAP ---
Pastoral Care Encounter/Spiritual Assessment Type of Contact [] Declined glass washer visit [] Patient/Family/Request visit [] Outpatient visit [] Follow-up visit [] Physician referral [] Code/Alert [] Routine visit [] Staff referral [] Actively dying [x] Patient sleeping [] Family support [] [] Out of room [] Palliative care [] [] Receiving care in room [] Pre-surgical visit [] Trauma [] Long length of stay [] ICU visit [] Other: Relational/Emotional Strength [] Patient feels connected with others/family/visitors/staff [] Distress [] Loneliness/isolation [] Abandonment Spirituality of Patient [] Person of Anahi [] Attends Religion of their Anahi [] Believes in Prayer [] Reads Bible or Sabianism materials [] There are Spiritual issues to be addressed Desktop Publishing Specialist Interventions [] Prayer [] Active listening [] Non-anxious presence [] Spiritual/emotional support [] Crisis/trauma care [] Spiritual counseling [] Bereavement support [] Provided bereavement packet [] Provided Bible/devotional materials [] Provided toy/stuffed animal, coloring book to patient or family member [] Provided Communion [] Anointing/Fall[place]ber [] Salvation [] Completed spiritual assessment [] Other: Impact on Illness or Injury [] Angry [] Fearful [] Anxious [] Often cries [] Exhaustion [] Unable to work [] Unable to attend episcopalian [] Unable to walk/stand [] Unable to read [] Unable to drive [] Unable to eat/drink [] Unable to sleep [] Unable to be with family [] Patient intubated [] Other: Summary Time spent with patient
[2025-03-24 09:58] LABS: Vitamin B12 > 2000 pg/mL (232-1245)
[2025-03-24 10:00] LABS: Ammonia 39 umol/L (16-60)
--- NOTE | 2025-03-24 11:50 | P.PN_ITS ---
Subjective 2 Subjective: Patient's somnolent. Seen with family at bedside. Laying comfortably, responding to painful stimulus. As per med rec he received Geodon yesterday evening at around 7 PM and then Ativan 1 mg at around 1:30 AM. Blood pressure is elevated to more than 190 systolic. Remains on room air. Vitals/I&O/Wt Last Vital Signs Temp 97.7 F 03/24/25 07:46 Pulse 81 03/24/25 09:57 Resp 19 H 03/24/25 09:57 BP 192/78 03/24/25 09:39 Pulse Ox 92 03/24/25 09:57 O2 Del Method Room Air 03/24/25 09:57 03/23/25 03/24/25 03/24/25 22:59 06:59 14:59 Intake Total 791.667 / 791.667 50 / 50 Output Total 700 / 700 Balance 91.667 / 91.667 50 / 50 Weight last 48 hrs Weight 57.379 kg Weight 59.058 kg Weight 63.503 kg Physical Exam 2 Narrative: General: Somnolent, responding to painful stimulus, maintaining airway, even in 4, V1, thin built HEENT: Normocephalic, atraumatic, EOMI, breathing room air. Cardio: Regular rate rhythm, normal S1-S2, no gross murmurs. Respiratory: Clear to auscultation bilaterally no wheezes or rhonchi. GI: Abdomen soft, nontender, nondistended, bowel sounds + Extremities: No edema bilateral lower extremities Urinary Catheter Management: Caballero: Cath Placed During This Visit: yes Reason for Continuing Indwelling Catheter: Acute Urinary Retention or Obstruction Urinary Catheter Date of Insertion: 03/24/25 Urinary Catheter Time of Insertion: 06:20 Data 03/24/25 03:53 03/24/25 03:53 Micro: Microbiology 03/24/25 09:32 Blood Culture - Preliminary Blood SPECIMEN COLLECTED 03/24/25 09:35 Blood Culture - Preliminary Blood SPECIMEN COLLECTED A&P Assessment and plan 1. Altered mental status: 2. Uncontrolled hypertension: 3. Hypertensive urgency: 4. Encephalopathy acute: 5. Central stenosis of spinal canal: Plan: #Altered mental status #Hypertensive urgency #Weakness, chills, poor oral intake Altered mental status: Unknown etiology. Cannot rule out press syndrome or due to hypertensive urgency. Seems like uncontrolled hypertension for last few years. Does not check blood pressures at home. As per family members patient did not have any photophobia, nausea or vomiting prior to admission. Did have cervical neck pain which is chronic for him. Family denies any recent medication changes. Urine drug screen negative. Alcohol level negative. LFTs and renal function normal. Cannot rule out infectious etiology though white count was normal patient has remained afebrile, UA not consistent with UTI. Follow-up blood culture, urine culture. Continue with empiric IV Zosyn for now. NS at 50 cc/h. Appreciate CT head negative for stroke. Plan: Check ammonia level. Check MRI brain with contrast to rule out press syndrome. Continue with empiric antibiotics for now. Check blood cultures. Aggressive blood pressure control. Start on clonidine patch 0.2. IV hydralazine 10 mg x 4 hours as needed for a systolic of more than 160 mmHg. Hold off on patient's oral home antihypertensive as he is NPO. TSH within normal limits. Check vitamin B12 levels. Patient does take baclofen 10 mg twice daily at home. For now on hold as he is NPO. Sitter at bedside. If agitated can use Haldol 1 mg every 4 hours as needed. Uncontrolled hypertension: Goal blood pressure less than 140/90 mmHg. Antihypertensive as above. Check echo. Full code N.p.o. Protonix OPD prophylaxis Lovenox for DVT prophylaxis ? Continue aspirin, - Hydralazine 50 3 times daily ? Continue levothyroxine 75 daily - Losartan 160 daily. -HbA1c, TSH, blood cultures, urine culture ? Urinalysis. ? Check CT chest abdomen pelvis ? Hydrate patient with normal saline 100 cc/h. ? Check troponins?18, 16. -Placed on Zosyn ? Urine drug screen negative CT head negative Will need to confirm home medications before ordering. Have discussed with ER to confirm home meds. Full code DVT prophylaxis: Lovenox 40 daily PDMP PDMP Reviewed: Not Reviewed Attestations 2 Medical Necessity Statement*: Requires further hospitalization for management of metabolic encephalopathy, altered mental status with concerns for press syndrome, uncontrolled hypertension Diagnoses Altered mental status R41.82 Uncontrolled hypertension I10 Hypertensive urgency I16.0 Encephalopathy acute G93.40 Central stenosis of spinal canal M48.00
[2025-03-24] MEDS: hyDRALAzine 20 mg/mL INJ 1 mL 10 MG IVP (15:09)
[2025-03-24] MEDS: nicardipine 20 MG/200 ML PREMIX 50 MG IV (15:51)
[2025-03-24] MEDS: haloperidol inj 5 mg/mL INJ 1 mL 2 MG IM (16:04)
[2025-03-24] MEDS: water for injection-sterile 10 ML (16:58)
[2025-03-24] MEDS: nicardipine 20 MG/200 ML PREMIX 30 MG IV (22:28)
[2025-03-25] VITALS (67 sets, daily range): BP systolic 115–178; BP diastolic 48–87; PULSE 79–112; RESP 9–33; TEMP 36.7–37; O2SAT 87–100
[2025-03-25] MEDS: nicardipine 20 MG/200 ML PREMIX 30 MG IV (02:44)
[2025-03-25] MEDS: haloperidol inj 5 mg/mL INJ 1 mL 2 MG IM ×2 (03:22→08:59)
[2025-03-25 04:07] LABS: Hematocrit 39.0 % (37-53); Hemoglobin 12.30 g/dL (11.27-16.99); Mean Corpuscular HGB Conc 31.5 g/dL (30-55); Mean Corpuscular Hemoglobin 28.6 pg (27-33); Mean Corpuscular Volume 90.7 fl (82-101); Nucleated Red Blood Cells % 0 %; Platelet Count 180 10^3/cmm (157-399); Red Blood Count 4.30 10^6/uL (3.85-5.65); White Blood Count 11.14 10^3/uL (3.29-11.43)
[2025-03-25 04:32] LABS: Alanine Aminotransferase 14 U/L (0-41); Albumin Level 3.6 g/dL (3.5-5.2); Alkaline Phosphatase 78 U/L (40-130); Anion Gap 14.7 (5-19); Aspartate Amino Transferase 21 U/L (0-40); Blood Urea Nitrogen 15 mg/dL (8-23); Calcium 9.4 mg/dL (8.5-10.5); Carbon Dioxide 23 mmol/L (22-29); Chloride 107 mmol/L (98-107); Creatinine Clr Calc Pharmacy 51.0263; Globulin 2.5 g/dL (1.3-4.6); Glucose 101 mg/dL (65-115); Osmolality Calculated 293 mOsm/kg (285-295); Potassium 3.7 mmol/L (3.5-5.1); Sodium 141 mmol/L (136-145); Total Protein 6.1 g/dL (6.6-8.7)
[2025-03-25 04:37] LABS: Magnesium 2.1 mg/dL (1.7-2.3)
[2025-03-25] MEDS: piperacillin-tazobactam 3.375 GM in sodium chloride 0.9% (plus) 50 ML IV ×3 (06:15→23:59)
--- NOTE | 2025-03-25 07:27 | PC.NURSE ---
Patient more awake, alert and talking this morning. Patient able to drink from a straw without difficulty. Spouse at bedside.
--- NOTE | 2025-03-25 08:24 | MR_ITS ---
WS: [id number] MRI HEAD WITHOUT CONTRAST limited TECHNIQUE: Sagittal T1 next diffusion axial T2 and axial FLAIR imaging. Additional imaging was not performed due to patient confusion. CLINICAL INFORMATION: hypertensive encephalopathy FINDINGS: Limited study with motion artifact and susceptibility artifact over the LEFT convexity due to a BB in the scalp. No evidence of restricted diffusion to suggest acute ischemia. Part of the LEFT hemisphere is obscured due to susceptibility artifact from metallic BB in the LEFT scalp. No hydrocephalus. Moderate small vessel changes. Moderate parenchymal volume loss. Basilar cisterns are patent. 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 No extra-axial fluid collections. MR/MR head wo con* [id number] IMPRESSION: No acute intracranial findings considering limitations
--- NOTE | 2025-03-25 09:14 | USCV_ITS ---
Jay Bro Age: 84 Gender: M : 1940 Exam Date: 03/25/2025 13:19 Ordering Phys: Matty Allan MD Technologist: [place] [facility] [place]: cp sob BP: 156 / 64 HR: 93 Rhythm: Sinus Technical Quality: Adequate MEASUREMENTS (Male / Female) Normal Values 2D ECHO LV Diastolic Diameter PLAX 4.2 cm 4.2 - 5.9 / 3.9 - 5.3 cm IVS Diastolic Thickness 1.1 cm 0.6 - 1.0 / 0.6 - 0.9 cm IVS Systolic Thickness 1.6 cm LVPW Diastolic Thickness 1.1 cm 0.6 - 1.0 / 0.6 - 0.9 cm LVPW Systolic Thickness 1.3 cm LVOT Diameter 2.0 cm LV Ejection Fraction 2D Teich 65.4 % LV Ejection Fraction MOD 4C 64.1 % LV Ejection Fraction MOD 2C 74.5 % LV Ejection Fraction 2C AL 74.3 % LA Diameter 3.1 cm RA Systolic Volume 4C AL 25.3 ml RA Systolic Volume 4C MOD 22.8 ml Aorta at Sinotubular Diameter 2.8 cm IVC Diameter 2.1 cm M-MODE LA Ao Ratio MM 1.3 AV Cusp Separation MM 1.1 cm DOPPLER AV Peak Velocity 297.0 cm/s LVOT Peak Velocity 87.0 cm/s AV Area Cont Eq vti 1.3 cm squared AV Area Cont Eq pk 1.0 cm squared MV Peak Velocity 113.0 cm/s MV Area PHT 9.5 cm squared Mitral E to A Ratio 1.5 TV Peak Velocity 206.0 cm/s TR Peak Velocity 236.0 cm/s TR Peak Gradient 22.3 mmHg TV Peak E Velocity 84.0 cm/s PV Peak Velocity 127.0 cm/s FINDINGS Left Ventricle Left ventricle is normal in size. LV systolic function is normal with 60-65%. No regional wall motion abnormalities are seen Right Ventricle Normal in size and function Right Atrium Normal in size Left Atrium Normal in size Mitral Valve Structurally normal mitral valve. Mild mitral regurgitation. Aortic Valve Aortic valve is calcified. Mild aortic stenosis with aortic valve area 1.31 cm squared and mean gradient of 16 mmHg. Tricuspid Valve Mild tricuspid valve regurgitation. Pulmonary artery systolic pressure is normal Pulmonic Valve Not well visualized Pericardium Normal Aorta Normal in size IVC Appears to be normal CONCLUSIONS LV systolic function is normal with EF of 60-65% Mild mitral regurgitation Mild aortic stenosis Mild tricuspid regurgitation No comparison studies are available. Jassi Johnson MD (Electronically Signed) Final Date: 27 March 2025 09:44 S
--- NOTE | 2025-03-25 09:23 | PC.CHAP ---
Pastoral Care Encounter/Spiritual Assessment Type of Contact [] Declined crushed stone grader visit [] Patient/Family/Request visit [] Outpatient visit [] Follow-up visit [] Physician referral [] Code/Alert [] Routine visit [] Staff referral [] Actively dying [] Patient sleeping [] Family support [] [] Out of room [] Palliative care [] [x] Receiving care in room [] Pre-surgical visit [] Trauma [] Long length of stay [] ICU visit [] Other: Relational/Emotional Strength [] Patient feels connected with others/family/visitors/staff [] Distress [] Loneliness/isolation [] Abandonment Spirituality of Patient [] Person of Anahi [] Attends Baptist of their Anahi [] Believes in Prayer [] Reads Bible or Pentecostalism materials [] There are Spiritual issues to be addressed Coffee Roaster Interventions [] Prayer [] Active listening [] Non-anxious presence [] Spiritual/emotional support [] Crisis/trauma care [] Spiritual counseling [] Bereavement support [] Provided bereavement packet [] Provided Bible/devotional materials [] Provided toy/stuffed animal, coloring book to patient or family member [] Provided Communion [] Anointing/[place] [] Salvation [] Completed spiritual assessment [] Other: Impact on Illness or Injury [] Angry [] Fearful [] Anxious [] Often cries [] Exhaustion [] Unable to work [] Unable to attend taoist [] Unable to walk/stand [] Unable to read [] Unable to drive [] Unable to eat/drink [] Unable to sleep [] Unable to be with family [] Patient intubated [] Other: Summary Time spent with patient
--- NOTE | 2025-03-25 10:35 | PC.SOCIAL ---
IMM Update pg 2 of IMM Updated and reviewed w/ patient. Copy provided and copy dated, initialed and placed in chart.
--- NOTE | 2025-03-25 11:31 | PC.NURSE ---
Patient up to BSC at this time x2 assist. Tolerated fair.
--- NOTE | 2025-03-25 14:05 | P.PN_ITS ---
Subjective 2 Subjective: Seen by multiple family numbers at bedside. Patient is more awake and alert today. Able to have conversation. Alert to being in the hospital, self, family around. States feeling significantly weak. Denies any nausea, vomiting, headache. Vitals/I&O/Wt Last Vital Signs Temp 98.6 F 03/25/25 04:00 Pulse 95 03/25/25 11:56 Resp 25 H 03/25/25 11:56 BP 157/67 03/25/25 11:56 Pulse Ox 94 03/25/25 11:56 O2 Del Method Room Air 03/25/25 11:56 03/24/25 03/25/25 03/25/25 22:59 06:59 14:59 Intake Total 1260.0 / 1310.0 250 / 1560.0 310 / 310 Output Total 350 / 350 700 / 1050 Balance 910.0 / 960.0 -450 / 510.0 310 / 310 Weight last 48 hrs Weight 57.289 kg Weight 57.379 kg Weight 59.058 kg Physical Exam 2 Narrative: General: No acute distress, thin built, chronically sick appearing, AO x 3, lethargic HEENT: Normocephalic, atraumatic, EOMI, breathing room air. Cardio: Regular rate rhythm, normal S1-S2, no gross murmurs. Respiratory: Clear to auscultation bilaterally no wheezes or rhonchi. GI: Abdomen soft, nontender, nondistended, bowel sounds + Extremities: No edema bilateral lower extremities Urinary Catheter Management: Caballero: Cath Placed During This Visit: yes Reason for Continuing Indwelling Catheter: Accurate Measurement of Urinary Output in Critically Ill Patients Urinary Catheter Date of Insertion: 03/24/25 Urinary Catheter Time of Insertion: 06:20 Data 03/25/25 03:31 03/25/25 03:31 Micro: Microbiology 03/24/25 09:35 Blood Culture - Preliminary Blood NEGATIVE TO DATE 03/24/25 09:32 Blood Culture - Preliminary Blood NEGATIVE TO DATE A&P Assessment and plan 1. Altered mental status: 2. Uncontrolled hypertension: 3. Hypertensive urgency: 4. Encephalopathy acute: 5. Central stenosis of spinal canal: Plan: #Altered mental status #Hypertensive urgency #Weakness, chills, poor oral intake Altered mental status: High likelihood in setting of encephalopathy due to hypertensive urgency/press syndrome. Improving after blood pressures being more stable. As per family members patient did not have any photophobia, nausea or vomiting prior to admission. Did have cervical neck pain which is chronic for him. Family denies any recent medication changes. Urine drug screen negative. Alcohol level negative. LFTs and renal function normal. Ammonia levels normal. Cannot rule out infectious etiology though white count was normal patient has remained afebrile, UA not consistent with UTI. Follow-up blood culture, urine culture. Continue with empiric IV Zosyn for now. Hold off on IV fluids. Physical therapy, speech evaluation. Advance diet as per speech evaluation. Awaiting MR brain if possible. Appreciate CT head negative for stroke. Hypertensive urgency: Goal blood pressure less than 140/90 mmHg. Continue with Cardene drip. Wean accordingly. Patient is more awake today. Discontinue clonidine patch. Continue with amlodipine 10 mg daily. Restart home dose of hydralazine 50 mg 3 times daily. Start Coreg 12.5 mg twice daily. Wean Cardene drip as per goal blood pressure. Echocardiogram. IV hydralazine 10 mg every 4 hours as needed for systolic more than 160. Sitter at bedside. If agitated can use Haldol 1 mg every 4 hours as needed. CODE STATUS: Discussed in detail with patient, patient's spouse and son at bedside. Full code N.p.o. Protonix OPD prophylaxis Lovenox for DVT prophylaxis PDMP PDMP Reviewed: Not Reviewed Attestations 2 Medical Necessity Statement*: Requires further hospitalization for management of altered mental status in setting of hypertensive urgency, press syndrome while safe discharge planning is sought, antihypertensives were adjusted Diagnoses Altered mental status R41.82 Uncontrolled hypertension I10 Hypertensive urgency I16.0 Encephalopathy acute G93.40 Central stenosis of spinal canal M48.00
[2025-03-26] VITALS (44 sets, daily range): BP systolic 102–187; BP diastolic 45–96; PULSE 74–115; RESP 13–29; TEMP 36.5–37.1; O2SAT 91–95
[2025-03-26] MEDS: hyDRALAzine 20 mg/mL INJ 1 mL 10 MG IVP ×2 (02:14→15:56)
[2025-03-26 05:44] LABS: Hematocrit 37.0 % (37-53); Hemoglobin 11.70 g/dL (11.27-16.99); Mean Corpuscular HGB Conc 31.6 g/dL (30-55); Mean Corpuscular Hemoglobin 28.1 pg (27-33); Mean Corpuscular Volume 88.7 fl (82-101); Nucleated Red Blood Cells % 0 %; Platelet Count 160 10^3/cmm (157-399); Red Blood Count 4.17 10^6/uL (3.85-5.65); White Blood Count 9.47 10^3/uL (3.29-11.43)
[2025-03-26 06:09] LABS: Alanine Aminotransferase 16 U/L (0-41); Albumin Level 3.3 g/dL (3.5-5.2); Alkaline Phosphatase 78 U/L (40-130); Anion Gap 13.1 (5-19); Aspartate Amino Transferase 23 U/L (0-40); Blood Urea Nitrogen 17 mg/dL (8-23); Calcium 9.1 mg/dL (8.5-10.5); Carbon Dioxide 25 mmol/L (22-29); Chloride 107 mmol/L (98-107); Creatinine Clr Calc Pharmacy 57.3878; Globulin 2.3 g/dL (1.3-4.6); Glucose 93 mg/dL (65-115); Osmolality Calculated 295 mOsm/kg (285-295); Potassium 3.1 mmol/L (3.5-5.1); Sodium 142 mmol/L (136-145); Total Protein 5.6 g/dL (6.6-8.7)
[2025-03-26 06:18] LABS: Magnesium 2.0 mg/dL (1.7-2.3)
[2025-03-26] MEDS: piperacillin-tazobactam 3.375 GM in sodium chloride 0.9% (plus) 50 ML IV (06:44)
[2025-03-26] MEDS: sennosides-docusate Tablet 1 TAB PO (08:44)
[2025-03-26] MEDS: HYDROcodone-acetaminophen 5-325 mg Tablet 1 TAB PO ×2 (13:02→20:31)
--- NOTE | 2025-03-26 13:30 | P.PN_ITS ---
Subjective 2 Subjective: No acute events overnight. Patient has remained hemodynamically stable and afebrile. Has not had any further agitation. Has not had sitter for over 48 hours now. Seems to be at his baseline mentation. Vitals/I&O/Wt Last Vital Signs Temp 97.9 F 03/26/25 07:56 Pulse 115 H 03/26/25 12:30 Resp 16 03/26/25 12:30 BP 131/70 03/26/25 12:30 Pulse Ox 95 03/26/25 07:56 O2 Del Method Room Air 03/26/25 04:00 03/25/25 03/26/25 03/26/25 22:59 06:59 14:59 Intake Total 610 / 1684.167 50 / 1734.167 290 / 290 Output Total 850 / 850 450 / 1300 Balance -240 / 834.167 -400 / 434.167 290 / 290 Weight last 48 hrs Weight 57.334 kg Weight 57.289 kg Physical Exam 2 Narrative: General: No acute distress, thin built, chronically sick appearing, AO x 3, tired appearing HEENT: Normocephalic, atraumatic, EOMI, breathing room air. Cardio: Regular rate rhythm, normal S1-S2, no gross murmurs. Respiratory: Clear to auscultation bilaterally no wheezes or rhonchi. GI: Abdomen soft, nontender, nondistended, bowel sounds + Extremities: No edema bilateral lower extremities Urinary Catheter Management: Caballero: Cath Placed During This Visit: yes Reason for Continuing Indwelling Catheter: Accurate Measurement of Urinary Output in Critically Ill Patients Urinary Catheter Date of Insertion: 03/24/25 Urinary Catheter Time of Insertion: 06:20 Data 03/26/25 04:49 03/26/25 04:49 Micro: Microbiology 03/24/25 09:35 Blood Culture - Preliminary Blood NEGATIVE TO DATE 03/24/25 09:32 Blood Culture - Preliminary Blood NEGATIVE TO DATE A&P Assessment and plan 1. Altered mental status: 2. Uncontrolled hypertension: 3. Hypertensive urgency: 4. Encephalopathy acute: 5. Central stenosis of spinal canal: Plan: #Altered mental status #Hypertensive urgency #Weakness, chills, poor oral intake Altered mental status: Resolved. 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 Improving after blood pressures being more stable. As per family members patient did not have any photophobia, nausea or vomiting prior to admission. Did have cervical neck pain which is chronic for him. Family denies any recent medication changes. Urine drug screen negative. Alcohol level negative. LFTs and renal function normal. Ammonia levels normal. Cannot rule out infectious etiology though white count was normal patient has remained afebrile, UA not consistent with UTI. Follow-up blood culture, urine culture. Will hold off on any further IV antibiotics and monitor. Hold off on IV fluids. Physical therapy, speech evaluation. Advance diet as per speech evaluation. MR brain without contrast shows no stroke. With contrast could not be done. Appreciate CT head negative for stroke. Hypertensive urgency: Goal blood pressure less than 140/90 mmHg. Continue amlodipine 10 mg daily, Coreg 12.5 mg twice daily, hydralazine to be increased at 75 mg 3 times daily. Echocardiogram done. Results pending. IV hydralazine 10 mg every 4 hours as needed for systolic more than 160. CODE STATUS: Discussed in detail with patient, patient's spouse and son at bedside. Full code Level 5 dysphagia diet Protonix OPD prophylaxis Lovenox for DVT prophylaxis Safe discharge planning: Plan to discharge to SNF given significant deconditioning. Patient and family agreeable. PDMP PDMP Reviewed: Not Reviewed Attestations 2 Medical Necessity Statement*: Requires further hospitalization for management of altered status in setting of hypertensive encephalopathy while antihypertensives were adjusted and outpatient safe discharge planning is done. Diagnoses Altered mental status R41.82 Uncontrolled hypertension I10 Hypertensive urgency I16.0 Encephalopathy acute G93.40 Central stenosis of spinal canal M48.00
--- NOTE | 2025-03-26 14:41 | PC.OT ---
OT EVALUATION ATTEMPTED; PATIENT IS SLEEPING SOUNDLY AND DOES NOT AWAKEN DESPITE MY CONVERSATION WITH FAMILY IN THE ROOM.
[2025-03-27] VITALS (7 sets, daily range): BP systolic 135–186; BP diastolic 48–80; PULSE 78–104; RESP 14–19; TEMP 36.4–36.8; O2SAT 92–94
[2025-03-27] MEDS: hyDRALAzine 20 mg/mL INJ 1 mL 10 MG IVP (00:04)
[2025-03-27] MEDS: haloperidol inj 5 mg/mL INJ 1 mL 2 MG IM (00:09)
--- NOTE | 2025-03-27 00:15 | PC.NURSE ---
Patient was trying to crawl out of bed and pull at his catheter, patient was verbally redirected and argued that he was at home, and he was not pulling at his catheter. He started to get combative and 2mg of Haldol was given.
[2025-03-27] MEDS: HYDROcodone-acetaminophen 5-325 mg Tablet 1 TAB PO ×2 (04:20→12:42)
[2025-03-27 04:57] LABS: Hematocrit 39.9 % (37-53); Hemoglobin 12.30 g/dL (11.27-16.99); Mean Corpuscular HGB Conc 30.8 g/dL (30-55); Mean Corpuscular Hemoglobin 27.6 pg (27-33); Mean Corpuscular Volume 89.5 fl (82-101); Nucleated Red Blood Cells % 0 %; Platelet Count 176 10^3/cmm (157-399); Red Blood Count 4.46 10^6/uL (3.85-5.65); White Blood Count 9.14 10^3/uL (3.29-11.43)
[2025-03-27 05:25] LABS: Alanine Aminotransferase 21 U/L (0-41); Albumin Level 3.5 g/dL (3.5-5.2); Alkaline Phosphatase 87 U/L (40-130); Anion Gap 13.5 (5-19); Aspartate Amino Transferase 26 U/L (0-40); Blood Urea Nitrogen 18 mg/dL (8-23); Calcium 9.8 mg/dL (8.5-10.5); Carbon Dioxide 27 mmol/L (22-29); Chloride 106 mmol/L (98-107); Creatinine Clr Calc Pharmacy 51.0113; Globulin 2.8 g/dL (1.3-4.6); Glucose 101 mg/dL (65-115); Magnesium 2.4 mg/dL (1.7-2.3); Osmolality Calculated 298 mOsm/kg (285-295); Potassium 3.5 mmol/L (3.5-5.1); Sodium 143 mmol/L (136-145); Total Protein 6.3 g/dL (6.6-8.7)
[2025-03-27] MEDS: sennosides-docusate Tablet 1 TAB PO (09:07)
--- NOTE | 2025-03-27 10:06 | PM.DCS ---
Discharge Providers Date of Admission: 03/23/25 17:11 Date of Discharge: March 27, 2025 Attending Provider at Admission: Susan Agarwal MD Attending Provider at Discharge: Matty Allan MD Primary Care Provider: Darrick Brandt DO Diagnoses at Discharge Discharge Diagnosis 1. Altered mental status: 2. Uncontrolled hypertension: 3. Hypertensive urgency: 4. Encephalopathy acute: 5. Central stenosis of spinal canal: 6. Cognitive decline: 7. Hypertensive encephalopathy: Reason for Visit Reason for Visit: AMS; WEAKNESS Brief History: As per HPI Jay Bro is a 84 year old male with past med history of hypertension, hypothyroidism presented to the hospital today with lethargy weakness and altered mental status. Patient on room air saturating 93% saturation. On arrival blood pressure recently hospitalized 203/102. Patient's family is who provides the history. Patient's and nephew are there. They state that he has had poor oral intake since today before yesterday. He has been sleeping in bed all day. Having chills. At this time patient feeling cold as well. Patient is confused unable to provide any history at this time. Hospital Course Hospital Course Patient was admitted to the hospital for further evaluation management of altered mental status. Various etiologies Including stroke, meningitis were ruled out. Urine drug screen, alcohol level, ammonia levels, LFTs and renal functions remained stable. MRI brain was negative for stroke. 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 He was started on on aggressive treatment with antihypertensives after which his blood pressures improved and his mentation gradually improved as well. Patient was found to have significant deconditioning for which he was seen by PT, OT and speech evaluation. Diet was advanced after speech evaluation. For safe discharge planning possible transfer to SNF for discussion today with patient and family at bedside. He has been discharged to SNF in hemodynamically stable condition on adjusted antihypertensives. He did undergo cognitive study with occupational therapy and was found to have significant cognitive decline. Physical Exam Narrative: General: No acute distress, thin built, chronically sick appearing, AO x 3, tired appearing HEENT: Normocephalic, atraumatic, EOMI, breathing room air. Cardio: Regular rate rhythm, normal S1-S2, no gross murmurs. Respiratory: Clear to auscultation bilaterally no wheezes or rhonchi. GI: Abdomen soft, nontender, nondistended, bowel sounds + Extremities: No edema bilateral lower extremities Urinary Catheter Management: Caballero: Cath Placed During This Visit: yes Reason for Continuing Indwelling Catheter: Acute Urinary Retention or Obstruction Urinary Catheter Date of Insertion: 03/24/25 Urinary Catheter Time of Insertion: 06:20 Discharge Data Studies Completed and Pending Completed Studies During Hospitalization Category Date Time Status CT abdomen pelvis wo con [id number] Stat Cat Scan 03/23/25 17:[address] head wo con* [id number] Stat Cat Scan 03/23/25 13:06 Completed XR chest 1V portable [id number] Stat Exams 03/23/25 12:50 Completed MR head wo con* [id number] Urgent MRI 03/25/25 08:24 Completed CV. echo complete* [id number] Routine Ultrasound 03/25/25 09:14 Completed Pending at discharge Category Date Time Status Blood Culture Stat Lab 03/24/25 09:32 Results Complete Blood Count w/Auto AM LABS Lab 03/28/25 04:00 Ordered Comprehensive Metabolic Panel AM LABS Lab 03/28/25 04:00 Ordered Sputum Culture and Gram Stain Stat Lab 03/23/25 17:13 Uncollected Radiology Impressions Chest X-Ray 03/23/25 12:50 IMPRESSION: 1. Lung hyperinflation with stable opacities bilaterally likely representing areas of scarring. No definite acute infiltrate is identified. Head CT 03/23/25 13:06 Impression: Moderate cerebral atrophy. Abdomen/Pelvis CT 03/23/25 17:13 IMPRESSION: 1. Innumerable simple appearing cysts in the bilateral kidneys with punctate nonobstructing nephrolithiasis bilaterally. 2. Moderate colonic diverticulosis without definitive CT evidence to suggest acute diverticulitis. Mild constipation. 3. Other chronic findings as detailed in the body of the report. COMMENTS: Consistent with the [employer]'s Incidental Findings Committee white paper (J Am Roslyn Radiol 2018): Any incidental renal lesion less than 1 cm or classified as too small to characterize, or any incidental cystic renal lesion characterized as simple-appearing, is likely benign. No follow-up imaging is recommended for these lesions per consensus recommendations based on imaging criteria. Head MRI 03/25/25 08:24 IMPRESSION: No acute intracranial findings considering limitations Microbiology 03/24/25 09:35 Blood Blood Culture - Preliminary NEGATIVE TO DATE 03/24/25 09:32 Blood Blood Culture - Preliminary NEGATIVE TO DATE Laboratory Results WBC 9.14 10^3/uL (3.29-11.43) 03/27/25 04:34 RBC 4.46 10^6/uL (3.85-5.65) 03/27/25 04:34 Hgb 12.30 g/dL (11.27-16.99) 03/27/25 04:34 Hct 39.9 % (37-53) 03/27/25 04:34 MCV 89.5 fl (82-101) 03/27/25 04:34 MCH 27.6 pg (27-33) 03/27/25 04:34 MCHC 30.8 g/dL (30-55) 03/27/25 04:34 RDW 14.7 % (12.1-15.1) 03/27/25 04:34 Plt Count 176 10^3/cmm (157-399) 03/27/25 04:34 MPV 9.7 fL (7.4-10.4) 03/27/25 04:34 Neut % (Auto) 66.3 % 03/27/25 04:34 Lymph % (Auto) 24.0 % 03/27/25 04:34 Fisher % (Auto) 7.7 % 03/27/25 04:34 Eos % (Auto) 1.4 % 03/27/25 04:34 Baso % (Auto) 0.3 % 03/27/25 04:34 Neut # (Auto) 6.06 10^3/uL (1.8-7.7) 03/27/25 04:34 Lymph # (Auto) 2.2 10^3/uL (0.8-4.8) 03/27/25 04:34 Fisher # (Auto) 0.7 10^3/uL (0.2-0.9) 03/27/25 04:34 Eos # (Auto) 0.1 10^3/uL (0.0-0.8) 03/27/25 04:34 Baso # (Auto) 0.0 10^3/uL (0.0-0.1) 03/27/25 04:34 Nucleated RBC % (auto) 0 % 03/27/25 04:34 Nucleated RBCs # 0.0 /100WBC 03/27/25 04:34 Specimen Type Arterial 03/24/25 08:49 Sample Site Radial, right 03/24/25 08:49 ABG pH 7.45 (7.35-7.45) 03/24/25 08:49 ABG pCO2 38.8 mmHg (35-45) 03/24/25 08:49 ABG pO2 69.4 mmHg (80.0-100.0) L 03/24/25 08:49 ABG PO2/FiO2 Ratio 330 03/24/25 08:49 ABG HCO3 26.9 mmol/L (22-26) H 03/24/25 08:49 ABG O2 Saturation 92.5 03/24/25 08:49 ABG Base Excess 2.7 mmol/L (-2.0-2.0) H 03/24/25 08:49 Michael Test Pos 03/24/25 08:49 A-a O2 Gradient 4.2 mmHg (5-10) L 03/24/25 08:49 Hematocrit 36.7 % (42-52) L 03/24/25 08:49 Hgb O2 Saturation 92.0 % (95-100) L 03/24/25 08:49 Carboxyhemoglobin < 0.3 %THgb (0.4-20.1) L 03/24/25 08:49 Methemoglobin 0.4 % (0.4-1.5) 03/24/25 08:49 Total Hemoglobin 12.0 g/dL (14-18) L 03/24/25 08:49 Sodium 143.0 mmol/L (131-143) 03/24/25 08:49 Potassium 3.7 mmol/L (3.5-5.0) 03/24/25 08:49 Glucose 100.0 mg/dL (70-115) 03/24/25 08:49 Ionized Calcium 1.3 mmol/L (1.1-1.4) 03/24/25 08:49 O2 Delivery Device Room air 03/24/25 08:49 FiO2 21.0 % 03/24/25 08:49 Survey Research Associate ID glc 03/24/25 08:49 Sodium 143 mmol/L (136-145) 03/27/25 04:34 Potassium 3.5 mmol/L (3.5-5.1) 03/27/25 04:34 Chloride 106 mmol/L (98-107) 03/27/25 04:34 Carbon Dioxide 27 mmol/L (22-29) 03/27/25 04:34 Anion Gap 13.5 (5-19) 03/27/25 04:34 BUN 18 mg/dL (8-23) 03/27/25 04:34 Creatinine 0.9 mg/dL (0.7-1.2) 03/27/25 04:34 GFR Calculation Not Reportable 03/27/25 04:34 Glucose 101 mg/dL (65-115) 03/27/25 04:34 Estimat Average Glucose 108 03/23/25 13:03 Hemoglobin A1c 5.4 % (4.0-6.0) 03/23/25 13:03 Calculated Osmolality 298 mOsm/kg (285-295) H 03/27/25 04:34 Lactic Acid 1.4 mmol/L (0.5-2.2) 03/23/25 19:07 Calcium 9.8 mg/dL (8.5-10.5) 03/27/25 04:34 Magnesium 2.4 mg/dL (1.7-2.3) H 03/27/25 04:34 Iron 36 ug/dL (59-158) L 03/24/25 03:53 TIBC 257 mcg/dl 03/24/25 03:53 % Saturation 14.0 % (20-50) L 03/24/25 03:53 Unsat Iron Binding 221 ug/dL (112-347) 03/24/25 03:53 Total Bilirubin 0.4 mg/dL (0.15-1.2) 03/27/25 04:34 AST 26 U/L (0-40) 03/27/25 04:34 ALT 21 U/L (0-41) 03/27/25 04:34 Alkaline Phosphatase 87 U/L (40-130) 03/27/25 04:34 Ammonia 39 umol/L (16-60) 03/24/25 09:32 Troponin T Baseline 18 ng/L (0-15) H 03/23/25 13:03 Troponin T 120 Minute 16.10 ng/L (0-15) H 03/23/25 14:52 Delta Troponin T -1.90 ABS# (0-10) L 03/23/25 14:52 Troponin T Hi Sens 6Hr 16.53 ng/L (0-15) H 03/23/25 19:07 Troponin T Hi Sens 6Hr Delta -1.47 ng/L (0-12) L 03/23/25 19:07 Total Protein 6.3 g/dL (6.6-8.7) L 03/27/25 04:34 Albumin 3.5 g/dL (3.5-5.2) 03/27/25 04:34 Globulin 2.8 g/dL (1.3-4.6) 03/27/25 04:34 Triglycerides 112 mg/dL (0-150) 03/23/25 13:03 Cholesterol 191 mg/dL (0-200) 03/23/25 13:03 LDL Cholesterol, Calc 132 mg/dL (50-129) H 03/23/25 13:03 HDL Cholesterol 37 mg/dL (60-100) L 03/23/25 13:03 LDL/HDL Ratio 3.57 RATIO (0.00-3.22) H 03/23/25 13:03 Cholesterol/HDL Ratio 5.16 mg/dL (1.0-5.00) H 03/23/25 13:03 Vitamin B12 > 2000 pg/mL (232-1245) H 03/24/25 03:53 Folate 14.2 ng/mL (4.5-32.2) 03/25/25 03:31 Procalcitonin 0.10 ng/mL (0-0.5) 03/23/25 13:03 Procalcitonin 0.10 ng/mL (0-0.5) 03/23/25 13:03 TSH 0.92 uIU/mL (0.27-4.20) 03/23/25 13:03 Urine Color Yellow (Yellow) 03/23/25 13:38 Urine Appearance Clear (CLEAR) 03/23/25 13:38 Urine pH 5.5 (5-7) 03/23/25 13:38 Ur Specific [place] 1.021 (1.005-1.030) 03/23/25 13:38 Urine Protein Trace (Negative) A 03/23/25 13:38 Urine Glucose (UA) Negative (Normal) 03/23/25 13:38 Urine Ketones Trace (Negative) 03/23/25 13:38 Urine Blood Negative (Negative) 03/23/25 13:38 Urine Nitrate Negative (Negative) 03/23/25 13:38 Urine Bilirubin Negative (Negative) 03/23/25 13:38 Urine Urobilinogen 1.0 mg/dL (Negative) 03/23/25 13:38 Ur Leukocyte Esterase Trace (Negative) A 03/23/25 13:38 Urine RBC 5-10 /hpf (0-2) H 03/23/25 13:38 Urine WBC 15-25 /hpf (0-5) H 03/23/25 13:38 Ur Squamous Epith Cells 0-4 /hpf (0-5) H 03/23/25 13:38 Amorphous Sediment Not Reportable 03/23/25 13:38 Urine Bacteria None /hpf (NONE) 03/23/25 13:38 Hyaline Casts 5-10 /lpf H 03/23/25 13:38 Urine Mucus 2+ /hpf 03/23/25 13:38 Salicylates < 0.3 mg/dL (3-10) L 03/23/25 13:03 Urine Opiates Screen Negative ng/mL (Negative) 03/23/25 13:38 Acetaminophen < 5.0 ug/mL (10-30) L 03/23/25 13:03 Ur Barbiturates Screen Negative ng/mL (Negative) 03/23/25 13:38 Ur Phencyclidine Scrn Negative ng/mL (Negative) 03/23/25 13:38 Ur Amphetamines Screen Negative ng/mL (Negative) 03/23/25 13:38 U Benzodiazepines Scrn Negative ng/mL (Negative) 03/23/25 13:38 Urine Cocaine Screen Negative ng/mL (Negative) 03/23/25 13:38 U Marijuana (THC) Screen Negative ng/mL (Negative) 03/23/25 13:38 Ethyl Alcohol < 10 mg/dL (0-10) 03/23/25 13:03 Vitals Last Vital Signs Temp 97.6 F 03/27/25 08:00 Pulse 104 H 03/27/25 09:10 Resp 14 03/27/25 08:00 BP 186/79 03/27/25 09:10 Pulse Ox 92 03/27/25 04:00 O2 Del Method Room Air 03/27/25 04:00 Discharge Plan Discharge Patient Disposition: Xfer SNF Condition: Stable Prescriptions: New donepezil 5 mg Tablet 10 mg PO BEDTIME 30 Days Qty: 60 0RF olanzapine 5 mg Tablet,Disintegrating 5 mg PO BEDTIME PRN (Reason: Agitation) Qty: 10 0RF clonidine HCl 0.1 mg tablet 0.1 mg PO Q8H PRN (Reason: systolic more than 160 mmhg) Qty: 20 0RF Continued baclofen 10 mg tablet 10 mg PO BID PRN (Reason: spasm) Qty: 60 1RF cyanocobalamin (vitamin B-12) [Vitamin B-12] 1,000 mcg Tablet 1,000 mcg PO DAILY aspirin 81 mg Tablet,Delayed Release (Dr/Ec) 81 mg PO BEDTIME levothyroxine 75 mcg tablet 75 mcg PO QAM amlodipine 10 mg tablet 10 mg PO DAILY simvastatin 20 mg tablet 20 mg PO QPM cholecalciferol (vitamin D3) [Vitamin D3] 50 mcg (2,000 unit) Capsule 50 mcg PO DAILY carvedilol 25 mg tablet 25 mg PO BID Qty: 0 0RF cimetidine 200 mg Tablet 200 mg PO TID PRN (Reason: Acid Reflux) Rx Instructions: administer with meals tramadol 50 mg tablet 50 mg PO Q6H PRN (Reason: pain) Qty: 14 0RF Changed hydralazine 50 mg tablet 75 mg PO TID 30 Days Qty: 135 0RF Discontinued clonidine HCl 0.2 mg tablet 0.2 mg PO QID valsartan 160 mg tablet 160 mg PO DAILY Discharge Order = DC NOW: Discharge Order (Routine); Ordered 03/27/25 Ordered By: Matty Allan Referrals: [facility] [Outside] Darrick Brandt DO [Primary Care Provider, Family Practice] Discharge Diet: As Directed and Cardiac Discharge Activity: Resume usual activity and Increase activity as tolerated Patient Instructions: Altered Mental Status (ED), Opioid Safety, Pain Management, Patient Portal & Janes Instructions Activity Restrictions/Additional Instructions: Dysphagia level 5 diet. Advance as per speech evaluation. Continue with physical therapy. Check blood pressure daily at home maintain blood pressure diary. Goal blood pressure is less than 140/90 mmHg. Can take clonidine 0.1 mg 3 times daily as needed for systolic of more than 160 mmHg. Discharge Attestations Time Spent in Discharge Care*: greater than 30 min Specific Discharge Activities: educating patient, educating and/or supporting family/caregiver, discussing with pcp/other providers, discussing with supportive employment case manager/social workers/dc planners, documenting/other paperwork and evaluating patient/reviewing data Status at Discharge: Cognitive status at discharge: mildly impaired cognition, Behavioral status at discharge: cooperative and can be uncooperative, Functional status at discharge: other assisted ambulation, Overall status at discharge: patient is progressing back to baseline Quality Metrics Clinical Quality Measures [ No reported AMI, CVA or VTE this stay] Coding Level of Care Code 94531 Total time (in minutes) for Discharge: 65 Diagnoses Altered mental status R41.82 Uncontrolled hypertension I10 Hypertensive urgency I16.0 Encephalopathy acute G93.40 Central stenosis of spinal canal M48.00 Cognitive decline R41.89 Hypertensive encephalopathy I67.4
--- NOTE | 2025-03-27 10:30 | PC.SOCIAL ---
IMM Update pg 2 of IMM Updated and reviewed w/ patient. Copy provided and copy dated, initialed and placed in chart.
--- NOTE | 2025-03-27 11:13 | PC.NURSE ---
called pharmacy talked to [facility] that we need to cancel the 2 meds that were transmitted. called [facility] for [facility] for 2 tabs.
--- NOTE | 2025-03-27 12:30 | PC.NURSE ---
report called to [facility] Talked to [facility] nurse in regards to pt's hospitalization course and discharge meds and instructions. Waiting for ready transport to bring pt to snf for rehab.
== END 2025-03-27 15:07 | disposition skilled nursing facility (03) | DRG 304 ==
LOC: ER 15:57 → CSU 17:30
PROVIDERS: Admitting Provider Internal Medicine; Emergency Provider Family Medicine; PCP Electrodiagnostic Medicine; Visit Provider Student in an Organized Health Care Education/Training Program
DX: I16.0 Hypertensive urgency (principal); I67.83 Posterior reversible encephalopathy syndrome; I11.0 Hypertensive heart disease with heart failure; E03.9 Hypothyroidism, unspecified; I10 Essential (primary) hypertension; M48.00 Spinal stenosis, site unspecified; Z79.82 Long term (current) use of aspirin
CPT/HCPCS: 36415; 36600; 51702; 70450; 70551; 71045; 74176; 80051; 80053; 80061; 80306; 80307; 81001; 82140; 82330; 82607; 82746; 82805; 83036; 83540; 83550; 83605; 83735; 84145; 84443; 84484; 85025; 87040; 92523; 92526; 92610; 93005; 93306; 94664; 96372; 96374; 96375; 97110; 97116; 97162; 97165; 97530; 99285; J0360; J0696; J1630; J1650; J2060; J2404; J2543; J3486; J3490; J7030; J9999

== ENCOUNTER → 2025-05-25 15:13 | Outpatient (BNVA) | payer MEDICARE, SELFPAY | PROVIDERS: PCP Electrodiagnostic Medicine; Visit Provider Anesthesiology Pain Medicine | DX: M47.812 Spondylosis without myelopathy or radiculopathy, cervical region (principal); M54.9 Dorsalgia, unspecified; G24.3 Spasmodic torticollis | CPT/HCPCS: 99214 ==

== ENCOUNTER → 2025-06-01 09:12 | Outpatient (BNVA) | payer MEDICARE, SELFPAY | PROVIDERS: PCP Electrodiagnostic Medicine; Visit Provider Anesthesiology Pain Medicine | DX: M79.18 Myalgia, other site (principal); M54.9 Dorsalgia, unspecified; M47.812 Spondylosis without myelopathy or radiculopathy, cervical region; G24.3 Spasmodic torticollis | CPT/HCPCS: 20553; 99214; J1010; J3490 ==

== ENCOUNTER → 2025-07-06 09:31 | Outpatient (BNVA) | payer MEDICARE, SELFPAY | PROVIDERS: PCP Electrodiagnostic Medicine; Visit Provider Anesthesiology Pain Medicine | DX: M47.812 Spondylosis without myelopathy or radiculopathy, cervical region (principal); M54.9 Dorsalgia, unspecified; G24.3 Spasmodic torticollis | CPT/HCPCS: 99214 ==

== ENCOUNTER 2025-07-23 01:30 | Emergency (ER) | payer MEDICARE, SELFPAY ==
[2025-07-23 01:28] VITALS: BP 181/76; PULSE 82; RESP 16; TEMP 36.4; O2SAT 94; BMI 22.6
--- OUTSIDE RECORDS SUMMARY | 2025-07-23 01:38 | XMS_ITS | Encounter Summary ---
Author Organization [facility] Address [address] [place] [address] Care Team Providers Care Server Manager Name Role Phone Unavailable Primary Care Provider Unavailabl e Encounter Details Date Type Department Care Team (Late st Contact Info) Description 02/11/1999 Outpatient Historical [facility], & Gustavo Zuniga MD [address] [place] [address] [place] [address] Social History Tobacco Use Types Packs/Day Years Used Date Smoking Tobacco: Never Assessed Sex and Gender Information Value Date Recorded Sex Assigned at Not on file Legal Sex Male 4:00 AM [employer] Gender Identity Not on file Sexual Orientation Not on file documented as of this encounter Plan of Treatment Not on file documented as of this encounter Visit Diagnoses Not on filedocumented in this encounter
--- OUTSIDE RECORDS SUMMARY | 2025-07-23 01:39 | XMS_ITS | Continuity of Care Document ---
Author Organization [facility] Kain, Alexa, [facility] ([facility]) Address [address] [place] [address] Assessment No assessment recorded. Plan of Treatment Reminders Order Date Submit Date Provider Last Modified By Organization Details Last Modified Time Details Appointments RECHECK 2024 09:00A Desmond Brandt, DO Not available Not available Not available RECHECK 2025 10:00A Desmond Brandt, DO Not available Not available Not available Lab None recorded. Referral None recorded. Procedures None recorded. Surgeries None recorded. Imaging None recorded. Medication Orders prednison e 20 mg tablet [address], [address], 07/09/2025 10:53:05 fentanyl 50 mcg/hr transderm al patch [address], [address], 07/09/2025 10:53:03 Patient TargetsNo targets recorded. Patient InstructionsNo instructions recorded. Reason for Referral None Reported. Problems Name Problem SNOMED Code Status Onset Date Resolution Date Notes Provider Name and Address Organization Details Recorded Time Acute sinusitis 26056850 Active 2023 [facility]RE Miller [facility] 12:42:51 Essential hypertensi on 63472511 Active 2023 Debo pace [facility] 4 07:56:56 Lupus erythemato rod 888843694 Active 2023 Debo pace, [facility] 4 07:56:58 Rheumatoid arthritis 25491478 Active 2023 Debo pace, [facility] 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 5 12:36:54 Coronary atheroscle rosis 208008220 Active 2023 Debobhumika Wolfelashell pace [facility] 5 12:42:50 History of placement of stent for coronary artery disease 706878960 Active 2023 Debobhumika pace [facility] 5 12:42:50 Vitamin B12 deficiency (non anemic) 78147157 Active 2023 Debo pace [facility] 5 12:42:51 Vitamin D deficiency 57916524 Active 2023 Debo pace [facility] 5 12:42:50 Hyperlipid emia 40739743 Active 2023 Debobhumika pace [facility] 5 12:42:50 Post-disch arge follow-up 929010389 Active 2024 TONY pace [facility] 5 15:42:03 Disorder of brain 73831265 Active 2024 TONY pace, [facility] 5 15:42:04 Hypertensi ve urgency 517506093 Active 2024 TONY pace, [facility] 5 15:42:05 Hypertensi ve encephalop athy 79562741 Active [address], [address] [place] [address] , [facility] 5 09:18:34 Primary gout 13731141 Active [address], [address] [place] [address] , [facility] 09:20:45 Problem Notes None recorded. Medical Equipment None Reported. Allergies No known drug allergies Medications Name Sig Start Date Stop Date Status Note LastModified by Organization Details LastModified Time Prescript ion - Renewal 04/09 completed HYDROCOD ONE Not Available Not Available Not Available fentanyl 50 mcg/hr transderm al patch apply ONE PATCH topicall y every 72 hours active Not Available Not Available No t Available carvedilo l 25 mg tablet Take 1 tablet twice a day by oral route for 90 days. active Not Available Not Available No t Available clonidine 0.1 mg/24 hr weekly transderm al patch APPLY 1 PATCH TOPICALL Y WEEKLY FOR BLOOD PRESSURE 2024 active Not Available Not Available Not Avai lable azithromy siena 250 mg tablet TAKE 2 TABLETS BY MOUTH ONCE DAILY FOR 1 DAY AND THEN 1 TABLET BY MOUTH ONCE DAILY FOR 4 DAYS. 07/02 completed Not Available Not Available Not Available tizanidin e 4 mg tablet TAKE 1 TABLET BY MOUTH THREE TIMES DAILY NEEDED 07/02 completed Not Available Not Available Not Available hydrocodo ne 5 mg-acetam inophen 325 mg tablet Take 2 tablets 3 times a day by oral route as needed, for severe pain. 2024 active Not Available Not Available Not Avai lable prednison e 20 mg tablet TAKE 1 TABLET BY MOUTH EVERY MORNING FOR 7 DAYS active Not Available Not Available No t Available hydralazi ne 25 mg tablet Take 1 tablet 3 times a day by oral route for 90 days, for blood pressure . 2024 active Not Available Not Available Not Avvenkatesh lable aspirin 81 mg tablet,de layed release Take 1 tablet every day by oral route. active Not Available Not Available No t Available tramadol 50 mg tablet Take 1 tablet twice a day by oral route as needed, for pain. 2024 active Not Available Not Available Not Avai lable levothyro xine 25 mcg tablet Take 1 tablet every day by oral route. 07/02 completed Not Available Not Available Not Available levothyro xine 75 mcg tablet Take 1 tablet every day by oral route for 90 days. active Not Available Not Available No t Available clonidine HCl 0.2 mg tablet Take 1 tablet 4 times a day by oral route. 04/09 completed Not Available Not Available Not Available tamsulosi n 0.4 mg capsule TAKE 1 CAPSULE BY MOUTH DAILY FOR PROSTATE 2024 active Not Available Not Available Not Avai labbrandon cimetidin e 200 mg tablet Take 1 tablet twice a day by oral route. active Not Available Not Available No t Available baclofen 10 mg tablet Take 2 tablets twice a day by oral route as needed for 30 days. 2024 active Not Available Not Available Not Avvenkatesh labbrandon amlodipin e 10 mg tablet Take 1 tablet every day by oral route. active Not Available Not Available No t Available simvastat in 20 mg tablet Take 1 tablet every day by oral route in the evening. active Not Available Not Available No t Available valsartan 320 mg tablet 07/02 completed 0; Recorded 11/07/19 15 5:50PM by Lidya Burnham LPN, Office Visit; Not Available Not Available Not Available Synthroid 50 mcg tablet daily 07/02 completed 0; Recorded 11/07/19 15 5:50PM by Lidya Burnham LPN, Office Visit; Not Available Not Available Not Available hydralazi ne 50 mg tablet Take 1 tablet 3 times a day by oral route for 90 days. 2024 active Not Available Not Available Not Avai lable fentanyl 25 mcg/hr transderm al patch APPLY ONE PATCH TO SKIN every 72 hours FOR chronic pain active Not Available Not Available No t Available amoxicill in 875 mg-potass ium clavulana te 125 mg tablet BID with meals 07/02 completed Recorded 07/02/20 17 11:47AM by Channing Bullard MD, Office Visit; Refill Quantity : 0; Not Available Not Available Not Available valsartan 160 mg tablet TAKE 1 TABLET BY MOUTH DAILY 04/09 completed Not Available Not Available Not Available carvedilo l 07/02 completed 0; Recorded 11/07/19 15 5:51PM by Lidya Burnham LPN, Office Visit; Not Available Not Available Not Available Diovan daily 07/02 completed 0; Recorded 04/07/20 14 9:12AM by Aminta Rodriguez LPN, Office Visit; Not Available Not Available Not Available atenolol two times daily 07/02 completed 0; Recorded 04/07/20 14 9:11AM by Aminta Rodriguez LPN, Office Visit; Not Available Not Available Not Available ProAir HFA 90 mcg/actua tion aerosol inhaler tid till cough complete ly gone 07/02 completed Recorded 07/02/20 17 11:50AM by Channing Bullard MD, Office Visit; Refill Quantity : 1; Canister ; Not Available Not Available Not Available aripipraz ole 2 mg tablet TAKE 1 TABLET BY MOUTH EVERY DAY in THE morning active Not Available Not Available No t Available D3-2000 50 mcg (2,000 unit) capsule Take 2 capsules every day by oral route. active Not Available Not Available No t Available B12 active Not Available Not Availa ble Not Available amlodipin e besylate (bulk) daily 07/02 completed 0; Recorded 11/07/19 15 5:50PM by Lidya Burnham LPN, Office Visit; Not Available Not Available Not Available Vitamin D2 07/02 completed 0; Recorded 11/07/19 15 5:50PM by Lidya Burnham LPN, Office Visit; Not Available Not Available Not Available clonidine HCl four times daily, as needed 07/02 completed 0; Recorded 07/02/20 17 11:37AM by Chrissy Peña LPN, Office Visit; Not Available Not Available Not Available Vitals Date Recorded Body height Body mass index (BMI) Body weight Oxygen saturation Heart rate Respiratory rate Systolic And Diastolic Provider Name and Address Organization Details Last Updated DateTime 5 167.64 cm 21.5 kg/m2 75690.7 9 g 98 % 81 /min 18 /min 118/64 mm[Hg] [employer] [facility] 09:04:19 Social History None recorded. Functional Status None recorded. Mental Status None recorded. Family History Relationship Description Onset Age of this Age Resolved Age Notes LastModified by Organization Details LastModified Time Father Heart disease [email or web address] Not available 2023 09:18:35 Mother Heart disease [email or web address] Not available 2023 09:18:35 Notes:Heart disease in femal e family member before age 65, Heart disease in male family member before age 55, Asthma, Arthritis, Hypercholesterolemia, Thyroid problems, Respiratory Condition, Hypertension, Osteoporosis Medical History No medical history recorded. Immunizations Vaccine Type Date Status Note Provider Nam e and Address Organization Details Recorded Time Influenza, high-dose, quadrivalent, PF 3 completed Debo pace [facility] 07/02/2024 09:02:42 Influenza, high-dose, quadrivalent, PF 2 completed Debo pace [facility] 07/02/2024 09:02:42 Influenza, high-dose, quadrivalent, PF 1 completed Debo pace [facility] 07/02/2024 09:02:42 COVID-19, mRNA, LNP-S, PF, 100 mcg/0.5mL dose or 50 mcg/0.25mL dose 1 completed Debo pace [facility] 07/02/2024 09:02:42 COVID-19, mRNA, LNP-S, PF, 100 mcg/0.5mL dose or 50 mcg/0.25mL dose 1 completed Debo Nunes null, [facility] 07/02/2024 09:02:42 COVID-19, mRNA, LNP-S, PF, 100 mcg/0.5mL dose or 50 mcg/0.25mL dose 1 [facility] 07/02/2024 09:02:42 COVID-19, mRNA, LNP-S, bivalent, PF, 50 mcg/0.5 mL or 25mcg/0.25 mL dose 2 completed [facility] 07/02/2024 09:02:42 COVID-19, mRNA, LNP-S, PF, saritha-sucrose, 30 mcg/0.3 mL 3 completed Debo Nunes [facility] 07/02/2024 09:02:42 COVID-19, mRNA, LNP-S, PF, 50 mcg/0.5 mL 4 completed [facility] 07/02/2024 09:02:42 Pneumococcal conjugate PCV 13 6 completed Debo Nunes [facility], [facility] 07/02/2024 09:02:42 Influenza, high-dose, trivalent, PF 7 completed [facility] 07/02/2024 09:02:42 Influenza, high-dose, trivalent, PF 8 completed Debo Nunes null, [facility] 07/02/2024 09:02:42 Influenza, high-dose, trivalent, PF 6 completed Debo Nunes null, [facility] 07/02/2024 09:02:42 Influenza, high-dose, trivalent, PF 9 completed Debo pace, [facility] 07/02/2024 09:02:42 Influenza, high-dose, trivalent, PF 4 completed Debo pace, [facility] 07/02/2024 09:02:42 Influenza, split virus, trivalent, preservative 7 completed Debo pace, [facility] 07/02/2024 09:02:42 Influenza, split virus, trivalent, PF 5 completed Debo pace, [facility] 07/02/2024 09:02:42 Pneumococcal conjugate PCV20, polysaccharide UDA150 conjugate, adjuvant, PF 4 completed Darrick Brandt DO [address] [place] [address], [phone], [facility] 07/02/2024 11:58:45 RSV, bivalent, protein subunit RSVpreF, diluent reconstituted, 0.5 mL, PF 4 completed Darrick Brandt DO [address] [place] [address], [phone], [facility] 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 Shafer for pain, received cervical trigger point injection. Scheduled with Neuro in Sep 2025 regarding Botox injections . Will start Fentanyl patch. Counseled on diagnosis, treatment options including medication s and possible side effects. F/u 2 weeks.04/30: with severe torticolis , chronic with chronic severe pain. Referral to Dr. Doss for pain management , Dr. Pisano for Botox injections .02/17/25: chronic, severe, evaluated by neurosurge ry, no need for surgical interventi on. recommand trial of a Soft C collar ot help with muscle pain/fatig ue. Order sent to HOME. Referral to Neurology in [place] for botox injections .He is not a candidate for surgery and has undergone pain mgt treatments in the recent past.: We discussed options and pt is agreeable to increase Tramadol from TID up to QID, will refill. Records: [facility]: muti level degen disc disease and facet disease with muti level spinal stenosis and foraminal encroachme nt, worst ad C4-5 with impression on ventral cord. Neursurgeo n declined surgical options due to age and comorbidit ies. has had pain mgt. had injections and ablasions. Hypertensi ve encephalopathy 54802840 I67.4 [id number] 04/30/25: Pt declined C, they didn't call for 3 weeks after it was ordered, feels he is doing fine without it. Torticollis 85495622 M43 .6 [id number] 04/30/[address] Pisano for Botox injections . 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 Shafer for pain, received cervical trigger point injection. Scheduled with Neuro in Sep 2025 regarding Botox injections . Will start Fentanyl patch. Counseled on diagnosis, treatment options including medication s and possible side effects. F/u 2 weeks.04/30: with severe torticolis , chronic with chronic severe pain. Referral to Dr. Doss for pain management , Dr. Pisano for Botox injections .02/17/25: chronic, severe, evaluated by neurosurge ry, no need for surgical interventi on. recommand trial of a Soft C collar ot help with muscle pain/fatig ue. Order sent to HOME. [facility] [place] for botox injections .He is not a candidate for surgery and has undergone pain mgt treatments in the recent past.: We discussed options and pt is agreeable to increase Tramadol from TID up to QID, will refill. Records: [facility] C [facility]: muti level degen disc disease and facet disease with muti level spinal stenosis and foraminal encroachme nt, worst ad C4-5 with impression on ventral cord. Neursurgeo n declined surgical options due to age and comorbidit ies. has had pain mgt. had injections and ablasions. Hypertensi ve encephalopathy 61002033 I67.4 [id number] 04/30/25: Pt declined [facility], they didn't call for 3 weeks after it was ordered, feels he is doing fine without it. Torticollis 49468175 M43 .6 [id number] 04/30/[address] Pisano for Botox injections . Primary gout 99588606 M1 0.071 [id number] Health Concerns Section Related Observation LastModified by Organization Detai ls LastModified Time None Recorded Concern Status LastModified by Organization Details LastModified Time None Recorded Payers Encounter Date Sequence Insurance Name Policy Number Policy Frances Covered Member ID Frances Member ID Guarantor Name 07/09/2025 1 [facility] (MEDICARE REPLACEMENT/A DVANTAGE - PPO) [id number] Jay Bro [id number] Jay Bro Notes Date Note Type Note Provider Name and Address Organization Details Recorded Time 07/09/2025 text/html ROS as noted in the HPI Patient presents 2 week f/u Pt is complaining of severe neck pain, 02/12 today. states laying down helps with pain, decreased activity d/t severe pain.Taking Hydrocodone 1 tablets three times a day and Baclofen 20 mg twice a day. started fentanyl 25mcg patch at last visitSince starting the fentanyl patch, the patient reports the pain is less excruciating but still constant. The patient also mentioned being unable to attend his sister s due to the pain. Son reports noticing some BLE edema, with the right foot more affected than the left. Symptoms began three days ago. Darrick Brandt, DO [address] [place] [address], [phone], [facility] 07/14/2025 11:28:36
--- OUTSIDE RECORDS SUMMARY | 2025-07-23 01:39 | XMS_ITS | Encounter Summary ---
Author Organization [facility] Address [address] [place] [address] Care Team Providers Care Vending Attendant Name Role Phone Unavailable Primary Care Provider Unavailabl e Encounter Details Date Type Department Care Team (Late st Contact Info) Description 10/19/2000 Outpatient Historical [facility], & Gustavo Zuniga MD [address] [place] [address] [place] [address] Social History Tobacco Use Types Packs/Day Years Used Date Smoking Tobacco: Never Assessed Sex and Gender Information Value Date Recorded Sex Assigned at Not on file Legal Sex Male 4:00 AM [employer] Gender Identity Not on file Sexual Orientation Not on file documented as of this encounter Plan of Treatment Not on file documented as of this encounter Visit Diagnoses Not on filedocumented in this encounter
--- OUTSIDE RECORDS SUMMARY | 2025-07-23 01:39 | XMS_ITS | Data Portability ---
Author Organization PIERRE Boni Walsh [facility], [place], [facility] Address [address] [address] Assessment Encounter Date Assessment Date Assessment LastModified by Organization Details LastModified Time 04/30/2025 04/30/2025 Document scribed by Teofilo Hoffman Counseling Services Manager. I was present during interview and exam. I have reviewed and agree with above documentation . Dr. Darrick Brandt. [email or web address] Not available 04/30/2025 11:12:41 06/25/2025 06/25/2025 Document scribed by Teofilo Hoffman Counseling Services Manager. I was present during interview and exam. I have reviewed and agree with above documentation . Dr. Darrick Brandt. [email or web address] Not available 06/25/2025 10:01:03 Plan of Treatment Reminders Order Date Submit Date Provider Last Modified By Organization Details Last Modified Time Details Appointments RECHECK 2024 09:00A Desmond Brandt, DO Not available Not available Not available RECHECK 10 2025 10:00A Desmond Brandt, DO Not available Not available Not available Lab BMP, serum or plasma 2024 025 [facility], [address], [facility] 1, [place], [address], 04/09/2025 14:57:48 Referral pain managemen t referral - To be seen in [place] 2024 025 [email or web address] Doss DO, [address] [place], [address], 05/14/2025 14:39:[address] referral - Eval and tx, Botox injection 2024 [email or web address] [facility], [address] [place], [address], 06/10/2025 16:41:36 home health referral - HH with PT, [place] 2024 [email or web address] [facility], [address], [place], [address], 04/30/2025 11:02:41 Procedures None recorded. Surgeries None recorded. Imaging None recorded. Medication Orders prednison e 20 mg tablet 2024 [facility] [place], [facility] [place], [address], 07/09/2025 10:53:05 fentanyl 50 mcg/hr transderm al patch 2024 [facility] [place], [facility] [place], [address], 07/09/2025 10:53:03 fentanyl 25 mcg/hr transderm al patch 2024 025 [facility] [place], [address] [place] [address], [address], 06/25/2025 11:23:00 hydralazi ne 25 mg tablet 2024 025 [email or web address] 7 [facility], [address] [place] [address], [address], [place], [place], [id number], 04/30/2025 19:16:04 tramadol 50 mg tablet 2024 025 ALLEN [facility], [address], [address], [place], [place], [id number], 04/09/2025 12:10:22 hydrocodo ne 5 mg-acetam inophen 325 mg tablet 2024 025 AMRTI [facility], [address], [address], [place], [place], [id number], 04/09/2025 12:10:22 clonidine 0.1 mg/24 hr weekly transderm al patch 2024 025 AMRIT [id number], [address], [place], [place], [id number], 04/09/2025 12:10:26 Patient TargetsNo targets recorded. Patient Instructions Encounter Date Encounter Id Patient Instructions Last Modified By Organization Details Last Modified Time 03/30/2025 [id number] Significant work up for confusion. Thought to be secondary to PRESS syndrome. Improved with bp control. Chronic neck pain with worsening pain. Will start norco 5/325 bid and keep tramadol prn. D/c prn zyprexa and prn clonidine. f/u . 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 To be seen in [place] Referring Physician: Family [facility], Encounter Date: 04/30/2025 Neurologist Referral for Tor ticollis Eval and tx, Botox injection Referring Physician: Darrick [facility]t [facility], Encounter Date: 04/30/2025 Results Created Date Observation Date Name Description Value Unit Range Abnormal Flag Note LastModifiedBy Organization Detail LastModifiedTime 04/09/2004/09/2025 BMP (MALE ) glucose 123.0 mg/dL 60.0-9 9.0 high Not Available [facility] [address], [place], [address], 04/09/2025 14:57:48 04/09/2004/09/2025 BMP (MALE ) BUN (blood urea nitrogen) 11.0 mg/dL 10.0-2 6.0 Not Available [facility] [address] [facility], [place], [address], 04/09/2025 14:57:48 04/09/20 25 04/09/2025 BMP (MALE ) creatinine (serum) 0.9 mg/dL 0.4-1. 5 Not Available [facility] [address] [facility], [place], [address], 04/09/2025 14:57:48 04/09/20 25 04/09/2025 BMP (MALE ) BUN/creatini ne ratio 12.22 ratio Not Available [facility] [address] [facility], [place], [address], 04/09/2025 14:57:48 04/09/20 25 04/09/2025 BMP (MALE ) calcium 9.9 mg/dL 8.4-10 .5 Not Available [facility] [address] [facility], [place], [address], 04/09/2025 14:57:48 04/09/20 25 04/09/2025 BMP (MALE ) sodium 136.0 mmol/ L 136.0- 145.0 Not Available [facility] [address] [facility] 1, [place], [address], 04/09/2025 14:57:48 04/09/20 25 04/09/2025 BMP (MALE ) potassium 4.1 mmol/ L 3.5-5. 1 Not Available [facility] [address] [facility], [place], [address], 04/09/2025 14:57:48 04/09/20 25 04/09/2025 BMP (MALE ) chloride 104.0 mmol/ L 98.0-1 10.0 normal Not Available [facility] [address] [facility] [address], [place], [address], 04/09/2025 14:57:48 04/09/2004/09/2025 BMP (MALE ) C02 27.0 mmol/ L 22.0-3 1.0 Not Available [facility] [address] [facility] [address], [place], [address], 04/09/2025 14:57:48 Result Notes None recorded. Problems Name Problem SNOMED Code Status Onset Date Resolution Date Notes Provider Name and Address Organization Details Recorded Time Acute sinusitis 64771281 Active 2023 Debo pace [facility] 5 12:42:51 Essential hypertensi on 06330482 Active 2023 Debo pace [facility] 4 07:56:56 Lupus erythemato rod 628385868 Active 2023 Debo pace [facility] 4 07:56:58 Rheumatoid arthritis 20266395 Active 2023 Debo pace [facility] 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 5 12:36:54 Coronary atheroscle rosis 052033747 Active 2023 Debo pace [facility] 5 12:42:50 History of placement of stent for coronary artery disease 723459691 Active 2023 Debo pace [facility] 5 12:42:50 Vitamin B12 deficiency (non anemic) 30249134 Active 2023 Debo pace, [facility] 12:42:51 Vitamin D deficiency 19071074 Active 2023 Debo Nunes null, [facility] 5 12:42:50 Hyperlipid emia 10562849 Active 2023 Debo Nunes null, [facility] 12:42:50 Post-disch arge follow-up 895502024 Active 2024 TONY LASHA sanjeev, [facility] 15:42:03 Disorder of brain 60423005 Active 2024 TONY pace, [facility] 15:42:04 Hypertensi ve urgency 840482471 Active 2024 TONYRO COLBY sanjeev, [facility] 15:42:05 Hypertensi ve encephalop athy 49301791 Active [address], [address] , [facility] 09:18:34 Primary gout 93972771 Active [address], [address] , [facility] 09:20:45 Problem Notes None recorded. Medical [...] Not Available Not Available Not Avai lable aspirin 81 mg tablet,de layed release [...] Not Available Not Available Not Avai lable cimetidin e 200 mg tablet Take 1 tablet twice a day by oral route. active Not Available Not Available No t Available baclofen 10 mg tablet Take 2 tablets twice a day by oral route as needed for 30 days. 2024 active Not Available Not Available Not Avai lable amlodipin e 10 mg tablet Take 1 [...] height Body mass index (BMI) Body weight Heart rate Respiratory rate Body temperature Oxygen saturation Systolic And Diastolic Provider Name and Address Organization Details Last Updated DateTime 167.64 cm 19.5 kg/m2 88313.6 8 g 78 /min 16 /min 97.98 [degF] 97 % 139/68 mm[Hg] TONY COLBY [facility] 15:40:04 Date Recorded Systolic And Diastolic Provider Name and Address Organization Details Last Updated DateTime 04/09/2025 180/90 mm[Hg] Darrick Brandt DO [address] [place] [address], [phone], [facility] 04/09/2025 12:02:43 Date Recorded Body height Body mass index (BMI) Body weight Oxygen saturation Heart rate Respiratory rate Provider Name and Address Organization Details Last Updated DateTime 167.64 cm 20.3 kg/m2 66383.8 5 g 96 % 76 /min 18 /min Debo Nunes [facility] 5 11:51:02 Date Recorded Body height Body mass index (BMI) Body weight Oxygen saturation Heart rate Respiratory rate Systolic And Diastolic Provider Name and Address Organization Details Last Updated DateTime 5 167.64 cm 21.3 kg/m2 63810.5 9 g 97 % 81 /min 18 /min 148/70 mm[Hg] [facility] 5 10:55:03 Date Recorded Body height Body mass index (BMI) Body weight Oxygen saturation Heart rate Respiratory rate Systolic And Diastolic Provider Name and Address Organization Details Last Updated DateTime 5 167.64 cm 20.2 kg/m2 63480.0 5 g 97 % 82 /min 18 /min 130/70 mm[Hg] [facility] 5 09:37:46 Date Recorded Body height Body mass index (BMI) Body weight Oxygen saturation Heart rate Respiratory rate Systolic And Diastolic Provider Name and Address Organization Details Last Updated DateTime 5 167.64 cm 21.5 kg/m2 51469.7 9 g 98 % 81 /min 18 /min 118/64 mm[Hg] [facility] 5 09:04:19 Social History None recorded. Functional Status None recorded. Mental Status None recorded. Family History Relationship Description Onset Age of this Age Resolved Age Notes LastModified by Organization Details LastModified Time Father Heart disease [email or web address] Not available 2023 09:18:35 Mother Heart disease [email or web address] Not available 2023 09:18:35 Notes:Heart disease in femal e family member before age 65, Heart disease in male family member before age 55, Asthma, Arthritis, Hypercholesterolemia, Thyroid problems, Respiratory Condition, Hypertension, Osteoporosis Medical History No medical history recorded. Immunizations Vaccine Type Date Status Note Provider Nam e and Address Organization Details Recorded Time Influenza, high-dose, quadrivalent, PF 3 completed Debo pace [facility] 07/02/2024 09:02:42 Influenza, high-dose, quadrivalent, PF [facility] 07/02/2024 09:02:42 Influenza, high-dose, quadrivalent, PF 1 [facility] 07/02/2024 09:02:42 COVID-19, mRNA, LNP-S, PF, 100 mcg/0.5mL dose or 50 mcg/0.25mL dose 1 [facility] 07/02/2024 09:02:42 COVID-19, mRNA, LNP-S, PF, 100 mcg/0.5mL dose or 50 mcg/0.25mL dose 1 [facility] 07/02/2024 09:02:42 COVID-19, mRNA, LNP-S, PF, 100 mcg/0.5mL dose or 50 mcg/0.25mL dose 1 [facility] 07/02/2024 09:02:42 COVID-19, mRNA, LNP-S, bivalent, PF, 50 mcg/0.5 mL or 25mcg/0.25 mL dose 2 completed [facility] 07/02/2024 09:02:42 COVID-19, mRNA, LNP-S, PF, saritha-sucrose, 30 mcg/0.3 mL 3 [facility] 07/02/2024 09:02:42 COVID-19, mRNA, LNP-S, PF, 50 mcg/0.5 mL 4 completed [facility] 07/02/2024 09:02:42 Pneumococcal conjugate PCV 13 6 completed Debo Nunes [facility], [facility] 07/02/2024 09:02:42 Influenza, high-dose, trivalent, PF 7 completed Debo Nunes [facility] 07/02/2024 09:02:42 Influenza, high-dose, trivalent, PF 8 completed Debo Nunes [facility], [facility] 07/02/2024 09:02:42 Influenza, high-dose, trivalent, PF 6 completed Debo Nunes [facility] 07/02/2024 09:02:42 Influenza, high-dose, trivalent, PF 9 completed Debo Nunes [facility] 07/02/2024 09:02:42 Influenza, high-dose, trivalent, PF 4 completed Debo Nunes [facility] 07/02/2024 09:02:42 Influenza, split virus, trivalent, preservative 7 completed Debo Nunes [facility], [facility] 07/02/2024 09:02:42 Influenza, split virus, trivalent, PF 5 completed Debo Nunes [facility] 07/02/2024 09:02:42 Pneumococcal conjugate PCV20, polysaccharide [id number] conjugate, adjuvant, PF 4 completed Darrick Brandt, [address], [address], [facility] 07/02/2024 11:58:45 RSV, bivalent, protein subunit RSVpreF, diluent reconstituted, 0.5 mL, PF 4 completed Darrick DO Rikki [address] [place] [address], [address], [facility] Boni [facility], Alexa 07/02/2024 11:58:45 Past Encounters Encounter ID Performer Location Encounter Start Date Encounter Closed Date Diagnosis/Indication Diagnosis SNOMED-CT Code Diagnosis ICD10 Code Diagnosis IMO Codes Diagnosis Note [id number] Maxim Luther MD [facility] ([facility]) [address] [place] [phone] 09/20/2023 08:40:16 09/20/2023 11:43:49 Acute sinusitis 39918616 J01.90 Likely bacterial sinusitis based on exam and history. discussed supportive care including OTC meds and sinus rinses. we will start abx. [id number] Darrick Brandt DO [facility] ([facility]) [address] [place] [address] 07/02/2024 08:55:21 07/02/2024 16:17:12 Essential hypertension 42912894 I10 stable. Lupus erythematosus 2008 87430 L93.0 No treatment for several years. Testing was + about 20 years ago. no recent labs. will get labs and records. Rheumatoid arthritis 698 09597 M06.9 chronic, no recent labs, does not have rheumatolo gist. will refer. counseled Spinal navid nosis in cervical region with myelopathy 8363623112 105 M48.02 Pt's pain is relatively managed with BID tramadol and prn nsaids. He is not a candidate for surgery and has undergone pain mgt treatments in the recent past.We discusse options and pt is agreeable and comfortabl e with continuing current management . Records: MRI C spine from 06/22/23 from [facility]: muti level degen disc disease and facet disease with muti level spinal stenosis and foraminal encroachme nt, worst ad C4-5 with impression on ventral cord. Neursurgeo n declined surgical options due to age and comorbidit ies. has had pain mgt. had injections and ablasions. History of placement of stent for coronary artery disease 975857264 Z95.5 STORY: cardiac stent placed 2020 Coronary atherosclerosis 689666296 I25.10 STORY: cardiac stent placed 2020 Vitamin D deficiency 347 69001 E55.9 Vitamin B1 2 deficiency (non anemic) 31148335 E53.8 Chronic neck pain 969831 0548 107 M54.2 Hyperlipidemia 92747032 E78.5 Active or passive immunization 376562778 Z23 [id number] Darrickshady BrandtDO [facility] ([facility]) [address] [place] [address] 09/03/2024 14:50:58 09/05/2024 12:15:48 Benign prostatic hyperplasia with outflow obstruction 907190402 N40.1 Tamsulosin , counseled. Spinal navid nosis in cervical region with myelopathy 6342379909 105 M48.02 He is not a candidate for surgery and has undergone pain mgt treatments in the recent past.: We discussed options and pt is agreeable to increase Tramadol from TID up to QID, will refill. Records: MRI C spine from 06/22/23 from [facility]: muti level degen disc disease and facet disease with muti level spinal stenosis and foraminal encroachme nt, worst ad C4-5 with impression on ventral cord. Neursurgeo n declined surgical options due to age and comorbidit ies. has had pain mgt. had injections and ablasions. 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 Neursurgeo n declined surgical options due to age and comorbidit ies. has had pain mgt. had injections and ablasions. [id number] Bernardo McknightDO [facility] ([facility]) [address] [place] [address] 03/30/2025 14:34:41 04/01/2025 17:31:42 Post-discharge follow-up 238612538 Z09 163268 Disorder of brain 710776 09 G93.40 7922268 Hypertensive urgency 443 708714 I16.0 5011159 [id number] Darrick Brandt DO [facility] ([facility]) [address] [place] [address] 04/09/2025 10:56:40 04/14/2025 11:43:25 Essential hypertension 89742800 I10 04/09/25: Resume Clonidine patch, continue Hydralazin e, remain off Losartan right now. Lab today to assess electrolyt es. F/u 3 weeks. Spinal navid nosis in cervical region with myelopathy 4924194839 105 M48.02 02/17/25: chronic, severe, evaluated by neurosurge ry, no [...] Records: MRI C spine from 06/22/23 from [facility]: muti level degen disc disease and facet disease with muti level spinal stenosis and foraminal encroachme nt, worst ad C4-5 with impression on ventral cord. Neursurgeo n declined surgical options due to age and comorbidit ies. has had pain mgt. had injections and ablasions. Hypertensi ve encephalopathy 49013911 I67.4 [id number] referral, [place]. [id number] Darrick Brandt DO [facility] ([facility]) [address] [place] [address] 04/30/2025 10:33:39 05/07/2025 08:33:16 Essential hypertension 15685243 I10 04/30/25: improved, continue current tx.04/09/25: Resume Clonidine patch, continue Hydralazin e, remain off Losartan right now. Lab today to assess electrolyt es. F/u 3 weeks. Spinal navid nosis in cervical region with myelopathy 5217700702 105 M48.02 04/30/25: with severe torticolis , chronic with chronic [...] Records: MRI C spine from 06/22/23 from [facility]: muti level degen disc disease and facet disease with muti level spinal stenosis and foraminal encroachme nt, worst ad C4-5 with impression on ventral cord. Neursurgeo n declined surgical options due to age and comorbidit ies. has had pain mgt. had injections and ablasions. Hypertensi ve encephalopathy 68762168 I67.4 [id number] 04/30/25: Pt declined [facility], they didn't call for 3 weeks after it was ordered, feels he is doing fine without it. Torticollis 13803843 M43 .6 [id number] 04/30/[address] Pisano for Botox injections . 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 Shafer [...] Records: MRI C spine from 06/22/23 from [facility]: muti level degen disc disease and facet disease with muti level spinal stenosis and foraminal encroachme nt, worst ad C4-5 with impression on ventral cord. Neursurgeo n declined surgical options due to age and comorbidit ies. has had pain mgt. had injections and ablasions. Hypertensi ve encephalopathy 65570514 I67.4 [id number] 04/30/25: Pt declined [facility], they didn't call for 3 weeks after it was ordered, feels he is doing fine without it. Torticollis 22857215 M43 .6 [id number] 04/30/[address] Pisano for Botox injections . 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 Shafer [...] sent to HOME. [facility] Hilary gon[facility] for botox injections .He is not a candidate for surgery and has undergone pain mgt treatments in the recent past.: We discussed options and pt is agreeable to increase Tramadol from TID up to QID, will refill. Records: MRI C spine from 06/22/23 from [facility]: muti level degen disc disease and facet disease with muti level spinal stenosis and foraminal encroachme nt, worst ad C4-5 with impression on ventral cord. Neursurgeo n declined surgical options due to age and comorbidit ies. has had pain mgt. had injections and ablasions. Hypertensi ve encephalopathy 19748472 I67.4 [id number] 04/30/25: Pt declined [facility], they didn't call for 3 weeks after it was ordered, feels he is doing fine without it. Torticollis 37067638 M43 .6 [id number] 04/30/[address] Pisano for Botox injections . Primary gout 01422439 M1 0.071 [id number] Health Concerns Section Related Observation LastModified by Organization Detai ls LastModified Time None Recorded Concern Status LastModified by Organization Details LastModified Time None Recorded Advance Directives Directive None Recorded Payers Insurance Date Sequence Insurance Name Policy Number Policy Frances Covered Member ID Frances Member ID Guarantor Name 06/10/2025 1 [facility] [employer] [id number] Jay Bro [id number] Jay Bro 07/20/2025 1 [facility] (MEDICARE REPLACEMENT/AD VANTAGE - PPO) [id number] Jay Bro [id number] Jay Bro Notes Date Note Type Note Provider Name and Address Organization Details Recorded Time 5 text/html HypertensionReported by PatientHPIFor severity, patient reportsgrade 1 (130-139/80-89)andgrade 2 (>/=140/90). For duration, patient reportshas noted for years. For alleviating factors, patient reportsmedication.ROS as noted in the HPI New admit to SNF after hospital stay. Bernardo Mcknight, DO [address] [place] [address], [phone], [facility], [place]han 04/01/2025 14:05:45 5 text/html ROS as noted in the HPI Pt presents for recheck after NH discharge He went to the ER at [facility] d/t his bp was elevated so much that caused swelling of the brain. His bp was high d/t his pain was so severe. He was d/c to NH for therapy for approximately 1 week, after 5 days in the hospital. Admitted 03/23-:Discharge Diagnosis1. Altered mental status:2. Uncontrolled hypertension:3. Hypertensive urgency:4. Encephalopathy acute:5. Central stenosis of spinal canal:6. Cognitive decline:7. Hypertensive encephalopathy: Hospital CoursePatient was admitted to the hospital for further evaluation management of altered mental status. Various etiologies Including stroke, meningitis were ruled out. Urine drug screen, alcohol level, ammonia levels, LFTs and renal functions remained stable. MRI brain was negative for stroke. 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 He was started on on aggressive treatment with antihypertensives after which his blood pressures improved and his mentation gradually improved as well. Patient was found to have significant deconditioning for which he was seen by PT, OT and speech evaluation. Diet was advanced after speech evaluation. For safe discharge planning possible transfer to SNF for discussion today with patient and family at bedside. He has been discharged to SNF in hemodynamically stable condition on adjusted antihypertensives. He did undergo cognitive study with occupational therapy and was found to have significant cognitive decline. Prescriptions:Newdonepezi l 5 mg [id number] mg PO BEDTIME 30 Days Qty: 60 0RFolanzapine 5 mg Tablet,Disintegrating5 mg PO BEDTIME PRN (Reason: Agitation) Qty: 10 0RFclonidine HCl 0.1 mg tablet0.1 mg PO Q8H PRN (Reason: systolic more than 160 mmhg) Qty: 20 0RFChangedhydralazine 50 mg xtwqah16 mg PO TID 30 Days Qty: 135 0RFDiscontinuedclonidine HCl 0.2 mg tablet0.2 mg PO QIDvalsartan 160 mg emxfsw063 mg PO DAILY ======== He was doing therapy at [facility], reports it was helping. Family reports social service worker called and said she was going to work on setting home home therapy, however they haven't heard anything. He hasn't checked BP since being home.Still having neck and abd pain.Taking Hydrocodone BID, 0700 and 1900, Tramadol PRN ( hasn't taken it much since returning home). He did not receive med Valsartan nor Clonidine. [place] the [place], 1 [place] ago. Family reporting he has lost several pounds through this.He continues to be confused. Darrick Brandt DO [address] [place] [address], [phone], [facility], Alexa 04/14/2025 01:19:02 5 text/html ROS as noted in the HPI Patient presents 3 week f/u HTN. Last visit we resumed Clonidine patch, continue Hydralazine, stopped Losartan.Son states they have only checked pt bp once, running 130s/70s. Feels like clinidine patch is keeping bp consistent Pt is complaining of severe neck pain, 8/10 today. states laying down helps with pain, decreased activity d/t severe pain.feels like he is overall getting stronger, and gaining weightHe has tried Pain Management, Therapy, Chiropractor, hasn't tried Botox, admits he is leery of it, doesn't know anything about it, would consider. [facility] was ordered 3 weeks ago, they called yesterday and pt declined, he thinks he is doing fine without it. Darrick Brandt DO [address] [place] [address], [phone], [facility], [place]. 04/30/2025 12:37:02 5 text/html ROS as noted in the HPI Patient presents 2 mth f/u On 04/09/25 we resumed Clonidine patch, continue Hydralazine, to remain off Losartan.We had f/u on 04/30/25 with improved BP, planned to continue current tx. Son mentions they v e only checked the patient s blood pressure a few times, averaging around 120/70, and feels the clonidine patch is keeping it steady.BP 130/70 in clinic this am. Pt is complaining of severe neck pain, 03/15 today. states laying down helps with pain, decreased activity d/t severe pain. wants to talk about a pain relief patch, while still taking Hydrocodone 2 tablets three times a day and Baclofen 20 mg twice a day.Seeing Dr. Guerra, was unable to see Onofre Pain until 08/04/25. Per Dr. Guerra note 06/01/25:Pt.follows up after cervical RFA. He does note some relief especially during the day but notes the pain still gets worse in the afternoon and at night. Discussed options for treatment. Pain and dysfunction has returned. He is waiting on her appointment with neurology for Botox. I discussed other options. Significant spasm will go ahead and perform cervical trigger point injection. He does seem to have significant spasm in the right paracervicals and trapezius. Also has appointment with neurology for possible Botox. Will follow-up in 1 month to see how he is doing. =Has abbey on 09/07/[address] Pisano to discuss Botox Intermittent pain in the left ear that began about four days ago. [facility] was ordered pt declined, he thinks he is doing fine without it. Patient s weight today is 125, down from 132 at the last visit on 04/30/25. Family reports the patient is eating well with no concerns about appetite and is drinking Boost weekly. Darrick Brandt, DO [address] [place] [address], [phone], [facility], Alexa 06/30/2025 08:09:05 5 text/html ROS as noted in the HPI [...] began three days ago. Darrick Brandt, DO [address] [place] [address], [phone], [facility] 07/14/2025 11:28:36
--- OUTSIDE RECORDS SUMMARY | 2025-07-23 01:39 | XMS_ITS | Encounter Summary ---
Author Organization [facility] Address 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
--- OUTSIDE RECORDS SUMMARY | 2025-07-23 01:39 | XMS_ITS | Continuity of Care Document ---
Author Organization [facility], Alexa, [facility] ([facility]) Address [address] [place] [address] Assessment Encounter Date Assessment Date Assessment LastModified by Organization Details LastModified Time 06/25/2025 06/25/2025 Document scribed by Teofilo Hoffman Control Tower Operator. I was present during interview and exam. [...] None recorded. Imaging None recorded. Medication Orders fentanyl 25 mcg/hr transderm al patch 2024 025 [facility], [address] [place], [address], 06/25/2025 11:23:00 Patient TargetsNo targets recorded. Patient InstructionsNo instructions recorded. Reason for Referral None Reported. Problems Name Problem SNOMED Code Status Onset Date Resolution Date Notes Provider Name and Address Organization Details Recorded Time Acute sinusitis 59917223 Active 2023 Debo pace, [facility], Alexa 12:42:51 Essential hypertensi on 95916918 Active 2023 Debo pace, [facility] 4 07:56:56 Lupus erythemato rod 392151202 Active 2023 Debo pace, [facility] 4 07:56:58 Rheumatoid arthritis 90152441 Active 2023 Debobhumika Wolfee sanjeev, [facility] 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CNicolás 5 12:36:54 Coronary atheroscle rosis 166426862 Active 2023 Debomellisa oWlfelashell pace [facility] 5 12:42:50 History of placement of stent for coronary artery disease 387983341 Active 2023 Debo Manju pace [facility] 5 12:42:50 Vitamin B12 deficiency (non anemic) 49813532 Active 2023 Debomellisa Wolfelashell pace [facility] 5 12:42:51 Vitamin D deficiency 12881882 Active 2023 Debobhumika pace [facility] 5 12:42:50 Hyperlipid emia 60581059 Active 2023 Debo Manju pace [facility] 5 12:42:50 Post-disch arge follow-up 022836976 Active 2024 TONY pace [facility]CNicolás 5 15:42:03 Disorder of brain 73531477 Active 2024 TONY COLBY null, [facility], LNicolásLNicolásCNicolás 15:42:04 Hypertensi ve urgency 421325345 Active 2024 TONY pace, [facility], LNicolásL.CNicolás 15:42:05 Hypertensi ve encephalop athy 13840526 Active 2024 Darrick Brandt [address], [address] [place] [address] , [facility], LSejalCNicolás 09:18:34 Primary gout 45892068 Active 2024 Darrick Brandt [address], [address] [place] [address] , [facility], LNicolásLKyara 09:20:45 Problem Notes None recorded. Medical Equipment [...] Updated DateTime 5 167.64 cm 20.2 kg/m2 94377.0 5 g 97 % 82 /min 18 /min 130/70 mm[Hg] MOLLY [employer] [facility]CNicolás 5 09:37:46 Social History None recorded. Functional Status None recorded. Mental Status None recorded. Family History Relationship Description Onset Age of this Age Resolved Age Notes LastModified by Organization Details LastModified Time Father Heart disease [email or web address] Not available 2023 09:18:35 Mother Heart disease [email or web address] Not available 2023 09:18:35 Notes:Heart disease in femal e family member before age 65, Heart disease in male family member before age 55, Asthma, Arthritis, Hypercholesterolemia, Thyroid problems, Respiratory Condition, Hypertension, Osteoporosis Medical History No medical history recorded. Immunizations Vaccine Type Date Status Note Provider Nam e and Address Organization Details Recorded Time Influenza, high-dose, quadrivalent, PF 3 completed Debo pace [facility] 07/02/2024 09:02:42 Influenza, high-dose, quadrivalent, PF 2 completed Debo pace [facility] 07/02/2024 09:02:42 Influenza, high-dose, quadrivalent, PF 1 completed Debo pace [facility] 07/02/2024 09:02:42 COVID-19, mRNA, LNP-S, PF, 100 mcg/0.5mL dose or 50 mcg/0.25mL dose 1 completed Debo pace [facility] 07/02/2024 09:02:42 COVID-19, mRNA, LNP-S, PF, 100 mcg/0.5mL dose or 50 mcg/0.25mL dose 1 completed Debo Nunes [facility] 07/02/2024 09:02:42 COVID-19, mRNA, LNP-S, PF, 100 mcg/0.5mL dose or 50 mcg/0.25mL dose 1 completed Debo Nunes [facility] 07/02/2024 09:02:42 COVID-19, mRNA, LNP-S, bivalent, PF, 50 mcg/0.5 mL or 25mcg/0.25 mL dose [facility] 07/02/2024 09:02:42 COVID-19, mRNA, LNP-S, PF, saritha-sucrose, 30 mcg/0.3 mL 3 [facility] 07/02/2024 09:02:42 COVID-19, mRNA, LNP-S, PF, 50 mcg/0.5 mL 4 [facility] 07/02/2024 09:02:42 Pneumococcal conjugate PCV 13 6 [facility] 07/02/2024 09:02:42 Influenza, high-dose, trivalent, PF 7 [facility] 07/02/2024 09:02:42 Influenza, high-dose, trivalent, PF 8 completed [facility] 07/02/2024 09:02:42 Influenza, high-dose, trivalent, PF 6 completed Debo pace, [facility] 07/02/2024 09:02:42 Influenza, high-dose, trivalent, PF 9 completed Debo Nunes null, [facility] 07/02/2024 09:02:42 Influenza, high-dose, trivalent, PF 4 completed Debomellisa Nunes null, [facility] 07/02/2024 09:02:42 Influenza, split virus, trivalent, preservative 7 completed Debo pace, [facility] 07/02/2024 09:02:42 Influenza, split virus, trivalent, PF 5 completed Debo pace, [facility] 07/02/2024 09:02:42 Pneumococcal conjugate PCV20, polysaccharide [id number] conjugate, adjuvant, PF 4 completed Darrick Brandt DO [address] [place] [address], [phone], [facility] 07/02/2024 11:58:45 RSV, bivalent, protein subunit RSVpreF, diluent reconstituted, 0.5 mL, PF 4 completed Darrick Brandt DO [address] [place] [address], [phone], [facility] 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 Shafer [...] C spine from 06/22/23 from [facility]: muti level degen disc disease and facet disease with muti level spinal stenosis and foraminal encroachme nt, worst ad C4-5 with impression on ventral cord. Neursurgeo n declined surgical options due to age and comorbidit ies. has had pain mgt. had injections and ablasions. Hypertensi ve encephalopathy 57273953 I67.4 [id number] 04/30/25: Pt declined [facility], they didn't call for 3 weeks after it was ordered, feels he is doing fine without it. Torticollis 50346530 M43 .6 [id number] 04/30/[address] Pisano for Botox injections . Health Concerns Section Related Observation LastModified by Organization Detai ls LastModified Time None Recorded Concern Status LastModified by Organization Details LastModified Time None Recorded Payers Encounter Date Sequence Insurance Name Policy Number Policy Frances Covered Member ID Frances Member ID Guarantor Name 06/25/2025 1 [facility] (MEDICARE REPLACEMENT/A DVANTAGE - PPO) [id number] Jay Bro [id number] Jay Bro Notes Date Note Type Note Provider Name and Address Organization Details Recorded Time 06/25/2025 text/html ROS as noted in the HPI Patient presents 2 mth f/u On 04/09/25 we resumed Clonidine patch, continue Hydralazine, to remain off Losartan.We had f/u on 04/30/25 with improved BP, planned to continue current tx. ==Son mentions they v e only checked the [...] month to see how he is doing. =======Has abbey on 09/07/[address] Pisano to discuss Botox Intermittent pain in the left ear that began about four days ago. C was ordered pt declined, he thinks he is doing fine without it. Patient s weight today is 125, down from 132 at the last visit on 04/30/25. Family reports the patient is eating well with no concerns about appetite and is drinking Boost weekly. Darrick Brandt, DO [address] [place] [address], [phone], [facility] 06/30/2025 08:09:05
--- OUTSIDE RECORDS SUMMARY | 2025-07-23 01:39 | XMS_ITS | Encounter Summary ---
Author Organization [facility] Address 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
--- OUTSIDE RECORDS SUMMARY | 2025-07-23 01:39 | XMS_ITS | Clinical Summary ---
Author Organization [facility] Reyes hernandez Rhiannon Address [address] [place] [address] Phone Care Team Providers Care Story Teller Name Role Phone Unavailable Primary Care Provider [...] Encounters Date Type Department Care Team Description 07/07/2025 External Device Data [facility] ABSTRACTION Provider, Abstract 05/27/2025 External Device Data [facility] [place]STRA[place] Provider, Abstract 05/26/2025 External Device Data [facility] [place]STRA[place] Provider, Abstract from Last 3 Months Social History Tobacco Use Types Packs/Day Years Used Date Smoking Tobacco: Former Cigarettes 1 1974 Passive Smoke Exposure: Past Tobacco Cessation:Counseling Given: Not Answered Sex and Gender Information Value Date Recorded Sex Assigned at Not on file 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
--- OUTSIDE RECORDS SUMMARY | 2025-07-23 01:39 | XMS_ITS | Encounter Summary ---
Author Organization [facility] Address 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
--- OUTSIDE RECORDS SUMMARY | 2025-07-23 01:39 | XMS_ITS | Encounter Summary ---
Author Organization [facility] Address 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
--- OUTSIDE RECORDS SUMMARY | 2025-07-23 01:39 | XMS_ITS | Continuity of Care Document ---
Author Organization PIERRE - Boni Walsh [facility], LNicolsáLKyara, [facility] ([facility]) Address [address] [place] [address] Assessment Encounter Date Assessment Date Assessment LastModified by Organization Details LastModified Time 04/30/2025 04/30/2025 Document scribed by Teofilo Hoffman Clinical Trial Data Manager. I was present during interview and exam. I have reviewed and agree with above documentation . Dr. Darrick Brandt. [email or web address] Not available 04/30/2025 11:12:41 Plan of Treatment Reminders Order Date Submit Date Provider Last Modified By Organization Details Last Modified Time Details Appointments RECHECK 2024 09:00A Desmond Brandt, DO Not available Not available Not available RECHECK 10 2025 10:00A Desmond Brandt, DO Not available Not available Not available Lab None recorded. Referral pain managemen t referral - To be seen in [place] 2024 025 [email or web address] Jose Doss DO, [address] [place], [address], 05/14/2025 14:39:[address] referral - Eval and tx, Botox injection [email or web address] [facility], [address] [place], [address], 06/10/2025 16:41:36 Procedures None recorded. Surgeries None recorded. Imaging None recorded. Medication Orders hydralazi ne 25 mg tablet 2024 025 [email or web address] 7 [facility], [address], [address], [place], [place], [id number], 04/30/2025 19:16:04 Patient TargetsNo targets recorded. Patient InstructionsNo instructions recorded. 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 To be seen in [place] Referring Physician: Darrick Brandt, [facility], Encounter Date: 04/30/2025 Neurologist Referral for Tor ticollis Eval and tx, Botox injection Referring Physician: Darrick rBandt [facility], Encounter Date: 04/30/2025 Results Created Date Observation Date Name Description Value Unit Range Abnormal Flag Note LastModifiedBy Organization Detail LastModifiedTime 04/09/2004/09/2025 BMP (MALE ) glucose 123.0 mg/dL 60.0-9 9.0 high Not Available [facility] [address], [address], 04/09/2025 14:57:48 04/09/2004/09/2025 BMP (MALE ) BUN (blood urea nitrogen) 11.0 mg/dL 10.0-2 6.0 Not Available [facility] [address] [address], [place], [address], 04/09/2025 14:57:48 04/09/20 25 04/09/2025 BMP (MALE ) creatinine (serum) 0.9 mg/dL 0.4-1. 5 Not Available [facility] [address] [address], [place], [address], 04/09/2025 14:57:48 04/09/2004/09/2025 BMP (MALE ) BUN/creatini ne ratio 12.22 ratio Not Available [facility] [address] [address], [place], [address], 04/09/2025 14:57:48 04/09/20 25 04/09/2025 BMP (MALE ) calcium 9.9 mg/dL 8.4-10 .5 Not Available [facility] [address] [facility] [address], [place], [address], 04/09/2025 14:57:48 04/09/20 25 04/09/2025 BMP (MALE ) sodium 136.0 mmol/ L 136.0- 145.0 Not Available [facility] [address] [facility] [address], [place], [address], 04/09/2025 14:57:48 04/09/20 25 04/09/2025 BMP (MALE ) potassium 4.1 mmol/ L 3.5-5. 1 Not Available [facility] [address] [facility] [address], [place], [address], 04/09/2025 14:57:48 04/09/20 25 04/09/2025 BMP (MALE ) chloride 104.0 mmol/ L 98.0-1 10.0 normal Not Available [facility] [address] [facility] [address], [place], [address], 04/09/2025 14:57:48 04/09/2004/09/2025 BMP (MALE ) C02 27.0 mmol/ L 22.0-3 1.0 Not Available [facility] [address] [facility] [address], [place], [address], 04/09/2025 14:57:48 Result Notes None recorded. Problems Name Problem SNOMED Code Status Onset Date Resolution Date Notes Provider Name and Address Organization Details Recorded Time Acute sinusitis 72566177 Active 2023 PIERRE Miller [facility] Alexa Finnegan 5 12:42:51 Essential hypertensi on 88707628 Active 2023 [facility] 07:56:56 Lupus erythemato rod 464975345 Active 2023 Debo pace, [facility] 4 07:56:58 Rheumatoid arthritis 77009585 Active 2023 Debo pace, [facility] 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 5 12:36:54 Coronary atheroscle rosis 146492343 Active 2023 Debobhumika Wolfee sanjeev, [facility] 5 12:42:50 History of placement of stent for coronary artery disease 393475043 Active 2023 Debo Nunes sanjeev, [facility] 5 12:42:50 Vitamin B12 deficiency (non anemic) 87988508 Active 2023 Debobhmuika pace [facility] 5 12:42:51 Vitamin D deficiency 71400165 Active 2023 Debo Nunes sanjeev [facility] 5 12:42:50 Hyperlipid emia 73844779 Active 2023 Debo Nunes null [facility] 5 12:42:50 Post-disch arge follow-up 263639561 Active 2024 TONY pace [facility] 5 15:42:03 Disorder of brain 72134574 Active 2024 TONY pace [facility] 5 15:42:04 Hypertensi ve urgency 496670072 Active 2024 TONY LASHA pace, [facility], LBharath 15:42:05 Hypertensi ve encephalop athy 36812586 Active 2024 Darrick Brandt, [address], [address] , [facility], Alexa 09:18:34 Primary gout 39573127 Active 2024 Darrick Brandt, [address], [address] , [facility], Alexa 09:20:45 Problem Notes None recorded. Medical Equipment [...] Updated DateTime 5 167.64 cm 21.3 kg/m2 95215.5 9 g 97 % 81 /min 18 /min 148/70 mm[Hg] [employer] [facility] 5 10:55:03 Social History None recorded. Functional Status None recorded. Mental Status None recorded. Family History Relationship Description Onset Age of this Age Resolved Age Notes LastModified by Organization Details LastModified Time Father Heart disease [email or web address] Not available 2023 09:18:35 Mother Heart disease [email or web address] Not available 2023 09:18:35 Notes:Heart disease in femal e family member before age 65, Heart disease in male family member before age 55, Asthma, Arthritis, Hypercholesterolemia, Thyroid problems, Respiratory Condition, Hypertension, Osteoporosis Medical History No medical history recorded. Immunizations Vaccine Type Date Status Note Provider Nam e and Address Organization Details Recorded Time Influenza, high-dose, quadrivalent, PF 3 completed Debo pace [facility] 07/02/2024 09:02:42 Influenza, high-dose, quadrivalent, PF 2 completed Debo pace [facility] 07/02/2024 09:02:42 Influenza, high-dose, quadrivalent, PF 1 completed Debo pace [facility] 07/02/2024 09:02:42 COVID-19, mRNA, LNP-S, PF, 100 mcg/0.5mL dose or 50 mcg/0.25mL dose 1 completed Debo pace [facility] 07/02/2024 09:02:42 COVID-19, mRNA, LNP-S, PF, 100 mcg/0.5mL dose or 50 mcg/0.25mL dose 1 completed Debo Nunes null, [facility] 07/02/2024 09:02:42 COVID-19, mRNA, LNP-S, PF, 100 mcg/0.5mL dose or 50 mcg/0.25mL dose 1 completed Debo Nunes null, [facility] 07/02/2024 09:02:42 COVID-19, mRNA, LNP-S, bivalent, PF, 50 mcg/0.5 mL or 25mcg/0.25 mL dose 2 completed Debo Nunes null, [facility] 07/02/2024 09:02:42 COVID-19, mRNA, LNP-S, PF, saritha-sucrose, 30 mcg/0.3 mL 3 [facility] 07/02/2024 09:02:42 COVID-19, mRNA, LNP-S, PF, 50 mcg/0.5 mL 4 completed Debo Nunes [facility], [facility] 07/02/2024 09:02:42 Pneumococcal conjugate PCV 13 6 completed Debo Nunes [facility] 07/02/2024 09:02:42 Influenza, high-dose, trivalent, PF 7 completed Debo Nunes null, [facility] 07/02/2024 09:02:42 Influenza, high-dose, trivalent, PF 8 completed Debo Nunes null, [facility] 07/02/2024 09:02:42 Influenza, high-dose, trivalent, PF 6 completed Debo Nunes null, [facility] 07/02/2024 09:02:42 Influenza, high-dose, trivalent, PF 9 completed Debo pace, [facility] 07/02/2024 09:02:42 Influenza, high-dose, trivalent, PF 4 completed Debo Nunes null, [facility] 07/02/2024 09:02:42 Influenza, split virus, trivalent, preservative 7 completed Debomellisa Nunes null, [facility] 07/02/2024 09:02:42 Influenza, split virus, trivalent, PF 5 completed Debo pace, [facility] 07/02/2024 09:02:42 Pneumococcal conjugate PCV20, polysaccharide [id number] conjugate, adjuvant, PF 4 completed Darrick Brandt DO [address] [place] [address], [phone], [facility] 07/02/2024 11:58:45 RSV, bivalent, protein subunit RSVpreF, diluent reconstituted, 0.5 mL, 4 completed Darrick Brandt DO [address] [place] [address], [phone], [facility] 07/02/2024 11:58:45 Past Encounters Encounter ID Performer Location Encounter Start Date Encounter Closed Date Diagnosis/Indication Diagnosis SNOMED-CT Code Diagnosis ICD10 Code Diagnosis IMO Codes Diagnosis Note [id number] Bernardo Mcknight DO [facility] ([facility]) [address] [place] [phone] 03/30/2025 14:34:41 04/01/2025 17:31:42 Post-discharge follow-up 945552434 Z09 313794 Disorder of brain 059262 09 G93.40 1227958 Hypertensive urgency 443 782628 I16.0 [id number] Darrick Brandt DO [facility] ([facility]) [address] [place] [address] 04/09/2025 10:56:40 04/14/2025 11:43:25 Essential hypertension 42494478 I10 04/09/25: Resume Clonidine patch, continue Hydralazin e, remain off Losartan right now. Lab today to assess electrolyt es. F/u 3 weeks. Spinal navid nosis in cervical region with myelopathy 0410534111 105 M48.02 02/17/25: chronic, severe, evaluated by [...] Records: MRI C spine from 06/22/23 from [facility]: muti level degen disc disease and facet disease with muti level spinal stenosis and foraminal encroachme nt, worst ad C4-5 with impression on ventral cord. Neursurgeo n declined surgical options due to age and comorbidit ies. has had pain mgt. had injections and ablasions. Hypertensi ve encephalopathy 07002885 I67.4 [id number] referral, [place]. [id number] Darrick Brandt DO [facility] ([facility]) [address] [place] [phone] 04/30/2025 10:33:39 05/07/2025 08:33:16 Essential hypertension 50979782 I10 04/30/25: improved, continue current tx.04/09/25: Resume Clonidine patch, continue Hydralazin e, remain off Losartan right now. Lab today to assess electrolyt es. F/u 3 weeks. Spinal navid nosis in cervical region with myelopathy 4888399796 105 M48.02 04/30/25: with severe torticolis , [...] Records: MRI C spine from 06/22/23 from [facility]: muti level degen disc disease and facet disease with muti level spinal stenosis and foraminal encroachme nt, worst ad C4-5 with impression on ventral cord. Neursurgeo n declined surgical options due to age and comorbidit ies. has had pain mgt. had injections and ablasions. Hypertensi ve encephalopathy 37830726 I67.4 [id number] 04/30/25: Pt declined HHC, they didn't call for 3 weeks after it was ordered, feels he is doing fine without it. Torticollis 43303739 M43 .6 [id number] 04/30/[address] Pisano for Botox injections . Health Concerns Section Related Observation LastModified by Organization Detai ls LastModified Time None Recorded Concern Status LastModified by Organization Details LastModified Time None Recorded Payers Encounter Date Sequence Insurance Name Policy Number Policy Frances Covered Member ID Frances Member ID Guarantor Name 04/30/2025 1 [facility] (MEDICARE REPLACEMENT/A DVANTAGE - PPO) [id number] Jay Bro [id number] Jay Bro Notes Date Note Type Note Provider Name and Address Organization Details Recorded Time 04/30/2025 text/html ROS as noted in the HPI [...] doesn't know anything about it, would consider. HHC was ordered 3 weeks ago, they called yesterday and pt declined, he thinks he is doing fine without it. Darrick Brandt, DO [address] [place] [address], [phone], [facility] 04/30/2025 12:37:02
--- OUTSIDE RECORDS SUMMARY | 2025-07-23 01:39 | XMS_ITS | Encounter Summary ---
Author Organization [facility] Address 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
--- NOTE | 2025-07-23 01:41 | ECG_ITS ---
"[facility] Test Date: 2025-07-23 Pat Name: Jay Bro Department: Room: Gender: Male Proof Carrier: : 1940 Requested By: Arya Pagan Order Number: [id number] Reading MD: Measurements Intervals [place] Rate: 79 P: 69 HI: 139 QRS: -26 QRSD: 130 T: -5 QT: 369 QTc: 424 Interpretive Statements SINUS RHYTHM INDETERMINATE AXIS RIGHT BUNDLE BRANCH BLOCK [120+ ms QRS DURATION, UPRIGHT V1, 40+ ms S IN I/aVL/V4/V5/V6] MODERATE T-WAVE ABNORMALITY, CONSIDER LATERAL ISCHEMIA [-0.1+ mV T-WAVE IN I/aVL/V5/V6] No previous ECG available for comparison [email or web address]"
--- NOTE | 2025-07-23 01:43 | CTR_ITS ---
PROCEDURE INFORMATION: Exam: CT Head Without Contrast Exam date and time: 07/23/2025 2:15 AM Age: 85 years old Clinical indication: Altered mental status/memory loss; Additional info: Elderly, AMS TECHNIQUE: Imaging protocol: Computed tomography of the head without contrast. Radiation optimization: All CT scans at this facility use at least one of these dose optimization techniques: automated exposure control; mA and/or kV adjustment per patient size (includes targeted exams where dose is matched to clinical indication); or iterative reconstruction. COMPARISON: MR head wo con* [id number] 03/25/2025 10:10 AM RADIATION DOSE METRICS: Total DLP (mGy-cm): 1241.46 FINDINGS: Brain: No acute intracranial hemorrhage. No midline shift or mass effect. No acute territorial infarct. Global age-related cerebral atrophy. Chronic, age related microangiopathy, consistent periventricular and subcortical white matter hypoattenuation. Cerebral ventricles: No ventriculomegaly. Paranasal sinuses: Visualized sinuses are unremarkable. No fluid levels. Mastoid air cells: Visualized mastoid air cells are well aerated. Bones: Unremarkable. No acute fracture. Soft tissues: Unremarkable. CT/CT head wo con* [id number] IMPRESSION: No acute intracranial hemorrhage. No midline shift or mass effect.
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
--- NOTE | 2025-07-23 01:53 | PC.NURSE ---
96 Hour Involuntary Hold Patient Rights have been reviewed with the patient and a copy of the same has been provided to him. Aircraft Body Repairer Beulah Lenz was present at bedside during the presentation of Rights.
[2025-07-23 02:03] LABS: Base Excess VBG 2.9 mmol/L (-3.0-3.0); Blood Gas Allen Test Pos; Blood Gas Operator Identificat gerca; Blood Gas Sample Type Venous; HCO3 VBG 26.5 mmol/L (24-28); PCO2 VBG 36.3 mmHg (41-51); PO2 VBG 60.4 mmHg (25-40); Venous Blood Gas Hematocrit 37.6 % (42-52); pH VBG 7.47 (7.32-7.42)
[2025-07-23 02:27] LABS: Hematocrit 37.6 % (37-53); Hemoglobin 11.30 g/dL (11.27-16.99); Mean Corpuscular HGB Conc 30.1 g/dL (30-55); Mean Corpuscular Hemoglobin 27.9 pg (27-33); Mean Corpuscular Volume 92.8 fl (82-101); Nucleated Red Blood Cells % 0 %; Platelet Count 169 10^3/cmm (157-399); Red Blood Count 4.05 10^6/uL (3.85-5.65); White Blood Count 8.14 10^3/uL (3.29-11.43)
[2025-07-23 02:37] LABS: Troponin(5th) Baseline 26 ng/L (0-15)
[2025-07-23 02:38] LABS: Ammonia 30 umol/L (16-60); Lactic Sepsis W/Reflex 0.6 mmol/L (0.5-2.2)
[2025-07-23 03:00] LABS: CRP High Sensitivity Cardiac 1.200 mg/dL (0.0-0.3); Magnesium 1.9 mg/dL (1.7-2.3); NT Pro B Type Natriuretic Pept 437 pg/mL (0-450); Thyroid Stimulating Hormone 1.36 uIU/mL (0.27-4.20)
--- NOTE | 2025-07-23 03:05 | PC.NURSE ---
DR. SAINZ ALLOWED FMAILT TO COME BACK TO GET A UPDATE BY THE PROVIDER HIMSELF/ GET PT HX FROM THE FAMILY MEMBER. PTS FAMILY MEMBER WAS TOLD HE HAD TO LEAVE AFTER TALKING TO THE PROVIDER.
[2025-07-23 03:55] LABS: Glucose Urine UA Negative (Normal); Nitrate Urine Negative (Negative); Specific Gravity, Urine 1.012 (1.005-1.030)
[2025-07-23 04:00] VITALS: BP 163/60; PULSE 80; O2SAT 96
[2025-07-23 04:00] LABS: Add Urine Microscopic? YES
[2025-07-23 04:02] LABS: PCP Screen Urine Negative (Negative)
[2025-07-23 04:18] LABS: UA Slide Review UA Slide Review Perf
--- NOTE | 2025-07-23 06:07 | XRR_ITS ---
PROCEDURE INFORMATION: Exam: XR Chest Exam date and time: 07/23/2025 6:26 AM Age: 85 years old Clinical indication: Pain; Other: Medical clearance TECHNIQUE: Imaging protocol: Radiologic exam of the chest. Views: 1 view. COMPARISON: CR XR chest 1V portable [id number] 03/23/2025 12:51 PM FINDINGS: Lungs: Coarse reticular interstitial pulmonary changes. Negative for focal pulmonary consolidation. No focal pulmonary mass. Pleural spaces: Unremarkable. No pleural effusion. No pneumothorax. Heart/Mediastinum: Unremarkable. No cardiomegaly. Bones/joints: Unremarkable. XR/XR chest 1V portable [id number] IMPRESSION: No acute pulmonary disease identified.
[2025-07-23 06:27] LABS: Alanine Aminotransferase 19 U/L (0-41); Albumin Level 3.8 g/dL (3.5-5.2); Alkaline Phosphatase 79 U/L (40-130); Anion Gap 16.1 (5-19); Aspartate Amino Transferase 19 U/L (0-40); Blood Urea Nitrogen 13 mg/dL (8-23); Calcium 9.7 mg/dL (8.5-10.5); Carbon Dioxide 24 mmol/L (22-29); Chloride 103 mmol/L (98-107); Globulin 1.9 g/dL (1.3-4.6); Glucose 122 mg/dL (65-115); Osmolality Calculated 289 mOsm/kg (285-295); Potassium 4.1 mmol/L (3.5-5.1); Sodium 139 mmol/L (136-145); Total Protein 5.7 g/dL (6.6-8.7)
[2025-07-23 06:36] LABS: Alcohol Level < 10 mg/dL (0-10)
[2025-07-23 06:53] LABS: Respiratory Syncytial Virus Ce NEGATIVE (Negative); SARS-CoV-2 PCR NEGATIVE (Negative)
--- NOTE | 2025-07-23 07:07 | PC.NURSE ---
THIS NURSE ASSUMED CARE @ [id number].
[2025-07-23 07:47] VITALS: BP 158/91; PULSE 81; RESP 18; O2SAT 96
--- NOTE | 2025-07-23 07:48 | PC.NURSE ---
PATIENT PACING HALLWAY AND OUTSIDE OF ROOM. PATIENT STATES I HAVEN'T DONE ANYTHING WRONG. PATIENT REDIRECTED TO SIT IN ROOM AND WAIT. SITTER PRESENT AND USING REDIRECTION.
--- NOTE | 2025-07-23 08:06 | PC.NURSE ---
REPORT CALLED TO JAIMIE HAYS RN.
--- NOTE | 2025-07-23 12:12 | PC.NURSE ---
[facility] JOSE THAT THEY HAD TO DIVERT TO [facility] DUE TO PATIENT BEHAVIOR. SAÚL CALLED AND INFORMED OF DECISION, ANAMARIAE STATED THAT HE WOULD LOSE HIS BED BUT COULD START THE PROCESS OVER. [facility] CALLED AN INFORMED OF PATIENT INCOMING STATUS. SON CALLED AND INFORMED OF PATIENT'S NEW LOCATION AT [facility] [place].
== END 2025-07-23 09:19 ==
PROVIDERS: Emergency Provider Student in an Organized Health Care Education/Training Program; PCP Electrodiagnostic Medicine
DX: R45.1 Restlessness and agitation (principal); R33.9 Retention of urine, unspecified; Z79.82 Long term (current) use of aspirin; I10 Essential (primary) hypertension
CPT/HCPCS: 36415; 70450; 71045; 80053; 80306; 80307; 81001; 82140; 82550; 82803; 83605; 83735; 83880; 84100; 84443; 84484; 85025; 86141; 87637; 93005; 99285